=== PATIENT | female | born 1945 | race Caucasian/White ===

== ENCOUNTER 2018-05-27 12:00 | Emergency (ER) | payer MEDICARE, OTHER ==
[2018-05-27] MEDS ORDERED: Sodium Chloride 0.9% 10 ML Syringe FLUSH PRN ×2 (12:16→13:42)
[2018-05-27] MEDS ORDERED: Labetalol 100 MG/20 ML MDV IVPUSH ONE ×2 (12:17→14:47)
--- NOTE | 2018-05-27 13:16 | CR ---
Chest: Portable view of the chest was obtained. Comparison: Prior chest x-ray of 01/15/16. Heart size appears within normal limits. Tortuous thoracic aorta is seen. Lungs are clear without acute parenchymal change. Left shoulder prosthesis is noted. Previous cervical spine surgery is noted. Scoliosis and degenerative change is noted within the spine. Previous abdominal surgery is noted. Impression: 1. Incidental findings. Nothing acute is seen on portable chest x-ray. Diagnostic code #2
[2018-05-27] MEDS ORDERED: Iopamidol 755 Mg/ML 100 ML Bottle IVPUSH ONE (13:42)
[2018-05-27] MEDS ORDERED: Ondansetron 4 MG/2 ML SDV IVPUSH ONE (13:43)
[2018-05-27] MEDS ORDERED: Sodium Chloride 0.9% 100 ML IV SCH (13:45)
--- NOTE | 2018-05-27 14:45 | EDM.PDOC ---
ED HPI GENERAL MEDICAL PROBLEM - General Chief Complaint: Chest Pain Stated Complaint: WALK IN CHEST PAIN HIGH BP Time Seen by Provider: 05/27/18 12:07 Source of Information: Reports: Patient History Limitations: Reports: No Limitations - History of Present Illness INITIAL COMMENTS - FREE TEXT/NARRATIVE: The patient presents with upper abdominal pain, chest pain, right arm pain and right leg pain. This all started yesterday. She went to the clinic to get checked and her blood pressure was high over 200 systolic. They told her to come over here. She still has some pain in her chest but she said it is more epigastric pain. She has nausea but no vomiting. She has no fever, chills, cough, vomiting, dysuria or diarrhea. She has no history of heart problems. She does have HTN for which she is on metoprolol 50mg daily. There has been no adjustments to her meds lately. Onset: Gradual Duration: Day(s): (Yesterday) Location: Reports: Chest, Upper Extremity, Right (Shoulder), Lower Extremity, Right Quality: Reports: Sharp Severity: Mild Improves with: Reports: None Worsens with: Reports: Breathing Associated Symptoms: Reports: Chest Pain, Nausea/Vomiting. 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: Other (see below) Other Treatments COMMERCIAL CRABBER: takes baby aspirin daily and did have it Upper Abdomen Pain Score (Numeric/FACES): 5 - Related Data Allergies Allergy/AdvReac Type Severity Reaction Status Date / Time oxycodone Allergy Anxiety Verified 05/27/18 12:17 Home Meds: Home Meds Cholecalciferol (Vitamin D3) [Vitamin D3] 2,000 unit PO DAILY 06/18/15 [History] Furosemide [Lasix] 20 mg PO DAILY 06/18/15 [History] Multivitamin [Multi-Vitamin Daily] 1 tab PO DAILY 06/18/15 [History] Ubidecarenone [Coq10] 400 mg PO DAILY 06/21/15 [History] Zolpidem Tartrate 1 tab PO DAILY 04/06/16 [History] Cyclobenzaprine [Flexeril] 10 mg PO TID PRN #40 tablet 04/08/16 [Rx] Docusate Sodium [Colace] 100 mg PO BID PRN #0 cap 04/08/16 [Rx] Magnesium Hydroxide [Milk of Magnesia] 30 ml PO BID PRN #0 cup 04/08/16 [Rx] Aspirin [Ecotrin] 81 mg PO DAILY 05/27/18 [History] Cyanocobalamin (Vitamin B-12) [Vitamin B-12] 1,000 mcg PO DAILY 05/27/18 [ History] Eszopiclone 2 mg PO DAILY 05/27/18 [History] Metoprolol Succinate 50 mg PO DAILY 05/27/18 [History] Metoprolol Succinate 100 mg PO DAILY #30 tab.er.24h 05/27/18 [Rx] Progesterone,Micronized [Progesterone] 150 mg PO DAILY 05/27/18 [History] Rosuvastatin [Crestor] 20 mg PO DAILY 05/27/18 [History] Past Medical History Other HEENT History: wears eyeglasses Cardiovascular History: Reports: High Cholesterol, Hypertension Other Cardiovascular History: ascending aneurysm Respiratory History: Reports: Sleep Apnea Other Respiratory History: does not have cpap machine of own has one. Gastrointestinal History: Reports: Irritable Bowel Syndrome Other Gastrointestinal History: prolapsing bowels--surgery Genitourinary History: Reports: None Other Genitourinary History: CKD3 Musculoskeletal History: Reports: Fibromyalgia, Neck Pain, Chronic - Past Surgical History GI Surgical History: Reports: Other (See Below) Female Surgical History: Reports: Section, Hysterectomy Musculoskeletal Surgical History: Reports: Other (See Below) Social & Family History - Family History Family Medical History: Noncontributory Neurological: Reports: CVA - Tobacco Use Smoking Status *Q: Former Smoker Used Tobacco, but Quit: Yes Month/Year Tobacco Last Used: 15 yr - Caffeine Use Caffeine Use: Reports: Coffee - Recreational Drug Use Recreational Drug Use: No ED ROS GENERAL - Review of Systems Review Of Systems: See Below Constitutional: Reports: No Symptoms HEENT: Reports: No Symptoms Respiratory: Reports: No Symptoms Cardiovascular: Reports: Chest Pain Endocrine: Reports: No Symptoms GI/Abdominal: Reports: Abdominal Pain : Reports: No Symptoms Musculoskeletal: Reports: No Symptoms Skin: Reports: No Symptoms Neurological: Reports: No Symptoms ED EXAM, GENERAL - Physical Exam Exam: See Below Exam Limited By: No Limitations General Appearance: Alert, No Apparent Distress Ears: Normal External Exam Nose: Normal Inspection Head: Atraumatic, Normocephalic Neck: Normal Inspection Respiratory/Chest: No Respiratory Distress, Lungs Clear, Normal Breath Sounds Cardiovascular: Regular Rate, Rhythm, No Edema, No Murmur GI/Abdominal: Soft, No Organomegaly, No Mass, Tender (Mild tenderness to the epigastric region) Back Exam: Normal Inspection Extremities: Normal Inspection Neurological: Alert, Oriented, No Motor/Sensory Deficits EKG INTERPRETATION EKG Date: 05/27/18 Time: 12:03 Rhythm: NSR Rate (Beats/Min): 66 [place]: Normal P-Wave: Present QRS: Normal ST-T: Normal QT: Normal Course - Vital Signs Last Recorded V/S: Last Vital Signs Temp 98.3 F 05/27/18 12:08 Pulse 80 05/27/18 14:57 Resp 24 H 05/27/18 14:23 BP 201/102 H 05/27/18 14:57 Pulse Ox 96 05/27/18 14:23 - Orders/Labs/Meds Orders: Active Orders 24 hr Category Date Time Status Cardiac Monitoring [RC] . DIRECTED Care 05/27/18 12:16 Active EKG Documentation Completion [RC] STAT Care 05/27/18 12:16 Active Peripheral IV Care [RC] . DIRECTED Care 05/27/18 12:16 Active TROPONIN I [CHEM] Stat Lab 05/27/18 15:10 Received Sodium Chloride 0.9% [Normal Saline] 100 ml Med 05/27/18 13:45 Active IV ASDIRECTED Sodium Chloride 0.9% [Saline Flush] Med 05/27/18 12:16 Active 10 ml FLUSH ASDIRECTED PRN Sodium Chloride 0.9% [Saline Flush] Med 05/27/18 13:42 Active 10 ml FLUSH ONETIME PRN Peripheral IV Insertion Adult [OM.PC] Stat Oth 05/27/18 12:16 Ordered Medication Orders Sodium Chloride (Normal Saline) 100 mls @ 65 mls/hr IV ASDIRECTED MIKO Last Admin: 05/27/18 14:15 Dose: 65 mls/hr Sodium Chloride (Saline Flush) 10 ml FLUSH ASDIRECTED PRN PRN Reason: Keep Vein Open Last Admin: 05/27/18 13:05 Dose: 10 ml Sodium Chloride (Saline Flush) 10 ml FLUSH ONETIME PRN PRN Reason: IV FLUSH Last Admin: 05/27/18 14:15 Dose: 10 ml Labs: Laboratory Tests 0705/27/18 05/27/18 Range/Units 12:35 12:35 12:35 WBC 7.75 (3.98-10.04) K/mm3 RBC 4.41 (3.98-5.22) M/mm3 Hgb 14.1 (11.2-15.7) gm/L Hct 41.9 (34.1-44.9) % MCV 95.0 H (79.4-94.8) fl MCH 32.0 (25.6-32.2) pg MCHC 33.7 (32.2-35.5) g/dl RDW Std Deviation 44.1 (36.4-46.3) fL Plt Count 181 L (182-369) K/mm3 MPV 10.2 (9.4-12.3) fl Neut % (Auto) 67.6 (34.0-71.1) % Lymph % (Auto) 21.9 (19.3-51.7) % [place] % (Auto) 9.3 (4.7-12.5) % Eos % (Auto) 0.8 (0.7-5.8) Baso % (Auto) 0.3 (0.1-1.2) % Neut # (Auto) 5.24 (1.56-6.13) K/mm3 Lymph # (Auto) 1.70 (1.18-3.74) K/mm3 [place] # (Auto) 0.72 H (0.24-0.36) K/mm3 Eos # (Auto) 0.06 (0.04-0.36) K/mm3 Baso # (Auto) 0.02 (0.01-0.08) K/mm3 D-Dimer, Quantitative 0.65 H (0.19-0.50) mg/L Sodium 140 (136-145) mEq/L Potassium 3.7 (3.5-5.1) mEq/L Chloride 104 (98-107) mEq/L Carbon Dioxide 26 (21-32) mEq/L Anion Gap 13.7 (5-15) BUN 22 H (7-18) mg/dL Creatinine 1.1 H (0.55-1.02) mg/dL Est Cr Clr Drug Dosing 34.95 mL/min Estimated GFR (MDRD) 48 (>60) mL/min BUN/Creatinine Ratio 20.0 H (14-18) Glucose 126 H (83-115) mg/dL Calcium 9.9 (8.5-10.1) mg/dL Total Bilirubin 0.7 (0.2-1.0) mg/dL AST 34 (15-37) U/L ALT 39 (14-59) U/L Alkaline Phosphatase 103 (46-116) U/L Troponin I < 0.017 (0.00-0.056) ng/mL Total Protein 7.0 (6.4-8.2) g/dl Albumin 3.9 (3.4-5.0) g/dl Globulin 3.1 gm/dL Albumin/Globulin Ratio 1.3 (1-2) Meds: Medications Generic Name Dose Route Start Last Admin Trade Name Freq PRN Reason Stop Dose Admin Sodium Chloride 100 mls @ 65 mls/hr 05/27/18 13:45 05/27/18 14:15 Normal Saline IV 65 mls/hr ASDIRECTED MIKO Administration Sodium Chloride 10 ml 05/27/18 12:16 05/27/18 13:05 Saline Flush FLUSH 10 ml ASDIRECTED PRN Administration Keep Vein Open Sodium Chloride 10 ml 05/27/18 13:42 05/27/18 14:15 Saline Flush FLUSH 10 ml ONETIME PRN Administration IV FLUSH Discontinued Medications Generic Name Dose Route Start Last Admin Trade Name Bisi PRN Reason Stop Dose Admin Iopamidol 100 ml 05/27/18 13:42 05/27/18 14:15 Isovue-370 (76%) IVPUSH 05/27/18 13:43 100 ml ONETIME ONE Administration Labetalol HCl 20 mg 05/27/18 12:17 05/27/18 12:58 Normodyne IVPUSH 05/27/18 12:18 20 mg ONETIME ONE Administration Protocol Labetalol HCl 20 mg 05/27/18 14:47 05/27/18 14:57 Normodyne IVPUSH 05/27/18 14:48 20 mg ONETIME ONE Administration Protocol Ondansetron HCl 4 mg 05/27/18 13:43 05/27/18 14:18 Zofran IVPUSH 05/27/18 13:44 4 mg ONETIME ONE Administration - Re-Assessments/Exams Free Text/Narrative Re-Assessment/Exam: 05/27/18 14:48 I ordered an IV saline lock, EKG, CXR, labs, labetolol 20mg IV. 05/27/18 14:49 Her CXR and EKG look good. Her CBC looks good. Her creatinine was elevated at 1.1. 05/27/18 14:49 Her troponin was negative. Her D-dimer was slightly elevated at 0.65. I have ordered a CT angio of her chest. She is nauseated so I ordered zofran 4mg IV. Her blood pressure was down for awhile butnow she is 201 systolic. I will give her another dose of labetolol. 05/27/18 15:[address] angio shows ascending aorta is aneurysmal with AP dimension of 4.2cm which remains stable from prior chest CT. Air-filled cysts within both lower lungs which remain stable from previous exam. No findings of pulmonary embolism. Other incidental findings. She is feeling better. I do not think this is her heart. Her blood pressure is better. I will increase her metoprolol. I have ordered a repeat troponin. Departure - Departure Time of Disposition: 15:35 Disposition: Home, Self-Care 01 Condition: Good Clinical Impression: Nausea Chest pain Qualifiers: Chest pain type: unspecified Qualified Code(s): R07.9 - Chest pain, unspecified Thoracic aneurysm without mention of rupture Qualifiers: Presence of rupture: without rupture Qualified Code(s): I71.2 - Thoracic aortic aneurysm, without rupture Prescriptions: Metoprolol Succinate 100 mg PO DAILY #30 tab.er.24h Referrals: Lalita Garcia, KILN PULLER [Primary Care Provider] - 1 Week Forms: ED Department Discharge Additional Instructions: I will increase your metoprolol to 100mg daily. Take come pepcid daily for 5 days. Follow up with Lalita Garcia in 1 week. Please return if you are worse. - My Orders Last 24 Hours: My Active Orders 05/27/18 12:16 Cardiac Monitoring [RC] . DIRECTED EKG Documentation Completion [RC] STAT Peripheral IV Care [RC] . DIRECTED Sodium Chloride 0.9% [Saline Flush] 10 ml FLUSH ASDIRECTED PRN Peripheral IV Insertion Adult [OM.PC] Stat 05/27/18 13:42 Sodium Chloride 0.9% [Saline Flush] 10 ml FLUSH ONETIME PRN 05/27/18 13:45 Sodium Chloride 0.9% [Normal Saline] 100 ml IV ASDIRECTED 05/27/18 15:10 TROPONIN I [CHEM] Stat - Assessment/Plan Last 24 Hours: My Active Orders 05/27/18 12:16 Cardiac Monitoring [RC] . DIRECTED EKG Documentation Completion [RC] STAT Peripheral IV Care [RC] . DIRECTED Sodium Chloride 0.9% [Saline Flush] 10 ml FLUSH ASDIRECTED PRN Peripheral IV Insertion Adult [OM.PC] Stat 05/27/18 13:42 Sodium Chloride 0.9% [Saline Flush] 10 ml FLUSH ONETIME PRN 05/27/18 13:45 Sodium Chloride 0.9% [Normal Saline] 100 ml IV ASDIRECTED 05/27/18 15:10 TROPONIN I [CHEM] Stat
[2018-05-27 14:58] VITALS: BP 201/102
--- NOTE | 2018-05-27 14:58 | CT ---
CT chest Technique: Multiple axial sections through the chest were obtained. Intravenous contrast was utilized. Study performed as a pulmonary angiogram protocol. Comparison: Prior chest CT of 02/10/17 which is an outside study. Findings: Ascending aorta is aneurysmal at 4.2 cm in AP dimension. This measures about the same on previous exam. Descending aorta shows no aneurysm and measures 2.6 cm in AP dimension. Pulmonary arteries are well-opacified and show no filling defects to indicate pulmonary emboli. Coronary artery calcification is seen. No pericardial thickening is noted. Mediastinum and hilar regions show no adenopathy or mass. No axillary adenopathy is seen. Small portion of visualized upper abdominal structures appear within normal limits. Incidental note of previous cholecystectomy. Air-filled cysts are seen within both lung bases which appears stable from prior CT exam. No acute parenchymal change is seen within either lung. No pleural effusions are seen. Bone window settings shows scattered degenerative change throughout the spine. Impression: 1. Ascending aorta is aneurysmal with AP dimension of 4.2 cm which remains stable from prior chest CT. 2. Air-filled cysts within both lower lungs which remain stable from previous exam. 3. No findings of pulmonary embolism. Other incidental findings. Diagnostic code #3
== END 2018-05-27 16:03 | disposition home or self-care (01) ==
LOC: JD.ED 12:00 → SUPCPDRO 12:00 → JD.ED 16:03
DX: I71.2 Thoracic aortic aneurysm, without rupture (principal); E78.00 Pure hypercholesterolemia, unspecified; I12.9 Hypertensive chronic kidney disease with stage 1 through stage 4 chronic kidney disease, or unspecified chronic kidney disease; N18.3 Chronic kidney disease, stage 3 (moderate); Z88.5 Allergy status to narcotic agent; Z79.899 Other long term (current) drug therapy; Z79.82 Long term (current) use of aspirin; Z87.891 Personal history of nicotine dependence
CPT/HCPCS: 36415; 71045; 71275; 80053; 84484; 85025; 85379; 93005; 96374; 96375; 96376; 99285; J2405; J3490; J7030; J7050; Q9967; 93010; 99284-25

== ENCOUNTER 2019-08-07 08:51 | Inpatient (IN) | payer MEDICARE, OTHER ==
--- NOTE | 2019-08-04 13:17 | PCM.PREANE ---
Preanesthetic Assessment - Anesthesia/Transfusion/Family Hx Anesthesia History: Prior Anesthesia Without Reaction Family History of Anesthesia Reaction: No Transfusion History: No Prior Transfusion(s) Intubation History: Unknown - Review of Systems General: No Symptoms (History of fibromyalgia) Pulmonary: No Symptoms (COPD/[place]), Cough Cardiovascular: No Symptoms (History of HTN, elevated cholesterol, History of stable AAA 4.1cm., history of paraxysmal SVT, and Diastolic CHF), Palpitations, Dyspnea on Exertion, Edema Other: Reports: None (CKD III), Neck Pain (History of neck fusion), Depression - Physical Assessment NPO Status Date: 08/06/19 Height: 1.6 m ASA Class: 3 Mental Status: Alert & Oriented x3 Airway Class: Mallampati = 1 Dentition: Reports: Normal Dentition, Caries Thyro-Mental Finger Breadths: 3 Mouth Opening Finger Breadths: 3 ROM/Head Extension: Full - Lab Values: Laboratory Last Values MRSA (PCR) Negative 07/26/19 13:52 Labs reviewed and noted and within acceptable ranges to proceed with scheduled procedure. - Imaging/EKG Impressions: EKG: NSR rate= 73 Echocardiogram: EF=64% CXR: flattened diaphragm potentially emphysema - Allergies Allergies/Adverse Reactions: Allergies Allergy/AdvReac Type Severity Reaction Status Date / Time oxycodone Allergy Anxiety Verified 05/27/18 12:17 - Anesthesia Plan Pre-Op Medication Ordered: Beta Diego Beta Diego: Metoprolol Med Last Dose Date: 08/07/19 - Acknowledgements Anesthesia Type Planned: General Anesthesia (Right ISB under US guidance for post operative pain control requested by Dr. Leblanc.) Pt an Appropriate Candidate for the Planned Anesthesia: Yes Alternatives and Risks of Anesthesia Discussed w Pt/Guardian: Yes Pt/Guardian Understands and Agrees with Anesthesia Plan: Yes PreAnesthesia Questionnaire Other HEENT History: wears eyeglasses Cardiovascular History: Reports: None (History of paroxysmal SVT), High Cholesterol, Hypertension Other Cardiovascular History: ascending aortic aneurysm stable measured at 4.1cm. Respiratory History: Reports: COPD, Sleep Apnea, SOB Other Respiratory History: does not have cpap machine of own has one. Gastrointestinal History: Reports: Irritable Bowel Syndrome Other Gastrointestinal History: prolapsing bowels--surgery Genitourinary History: Reports: None Other Genitourinary History: CKD3 Musculoskeletal History: Reports: Fibromyalgia, Neck Pain, Chronic - Past Surgical History GI Surgical History: Reports: Appendectomy, Cholecystectomy, Colonoscopy, Other (See Below) Female Surgical History: Reports: Section, Hysterectomy Neurological Surgical History: Reports: C-Spine Musculoskeletal Surgical History: Reports: Ganglion Cyst, Shoulder Replacement ( left), Other (See Below) (neck surgery) - Past Imaging History Past Imaging History: Reports: Cardiac Echo, PFT - SUBSTANCE USE Smoking Status *Q: Former Smoker - HOME MEDS Home Medications: Home Meds Cholecalciferol (Vitamin D3) [Vitamin D3] 2,000 unit PO DAILY 06/18/15 [History] Furosemide [Lasix] 20 mg PO DAILY 06/18/15 [History] Multivitamin [Multi-Vitamin Daily] 1 tab PO DAILY 06/18/15 [History] Ubidecarenone [Coq10] 400 mg PO DAILY 06/21/15 [History] Zolpidem Tartrate 1 tab PO DAILY 04/06/16 [History] Cyclobenzaprine [Flexeril] 10 mg PO TID PRN #40 tablet 04/08/16 [Rx] Docusate Sodium [Colace] 100 mg PO BID PRN #0 cap 04/08/16 [Rx] Magnesium Hydroxide [Milk of Magnesia] 30 ml PO BID PRN #0 cup 04/08/16 [Rx] Aspirin [Ecotrin] 81 mg PO DAILY 05/27/18 [History] Cyanocobalamin (Vitamin B-12) [Vitamin B-12] 1,000 mcg PO DAILY 05/27/18 [ History] Eszopiclone 2 mg PO DAILY 05/27/18 [History] Metoprolol Succinate 50 mg PO DAILY 05/27/18 [History] Metoprolol Succinate 100 mg PO DAILY #30 tab.er.24h 05/27/18 [Rx] Progesterone, Micronized [Progesterone] 150 mg PO DAILY 05/27/18 [History] Rosuvastatin [Crestor] 20 mg PO DAILY 05/27/18 [History] - CURRENT (IN HOUSE) MEDS Current Meds: Current Medications Lactated Ringer's (Ringers, Lactated) 1,000 mls @ 125 mls/hr IV ASDIRECTED MIKO Stop: 08/07/19 23:00 Lidocaine/Sodium Bicarbonate (Buffered Lidocaine 1% In Ns 8.4%) 0.25 ml IDERM ONETIME PRN PRN Reason: Prior to IV Start Stop: 08/07/19 18:00 Sodium Chloride (Saline Flush) 10 ml FLUSH ASDIRECTED PRN PRN Reason: Keep Vein Open Stop: 08/07/19 18:00
[~2019-08-07 08:51] MED LIST: Cyclobenzaprine 10 MG Tab PO PRN; EPINEPHrine 1 MG/1 ML Amp ONE; Lactated Ringers 1,000 ML IV SCH; Lidocaine 1%/Sod Bicarbonate in NS 8.4% 1 ML Syringe IDERM PRN; Magnesium Hydroxide 400 MG/5 ML Susp 30 ML Cup PO PRN; Morphine 2 MG/ML Syringe IVPUSH PRN; Naloxone 0.4 MG/ML SDV IVPUSH PRN; Ondansetron 4 MG/2 ML SDV IVPUSH PRN; Ropivacaine 0.5% 5 MG/ML 30 ML SDV ONE; Sodium Chloride 0.9% 10 ML Syringe FLUSH PRN
[2019-08-07] MEDS ORDERED: Rocuronium 50 MG/5 ML Vial ONE (09:24)
[2019-08-07] MEDS ORDERED: Dexamethasone 4 MG/ML 5 ML MDV ONE (09:24)
[2019-08-07] MEDS ORDERED: Ondansetron 4 MG/2 ML SDV ONE (09:24)
[2019-08-07] MEDS ORDERED: Lactated Ringers 1,000 ML ONE (09:24)
[2019-08-07] MEDS ORDERED: Lidocaine 1% 8 ML ONE (09:24)
[2019-08-07] MEDS ORDERED: Propofol 200 MG/20 ML SDV ONE (09:25)
[2019-08-07] MEDS ORDERED: Midazolam 1 MG/ML 2 ML SDV ONE (09:25)
[2019-08-07] MEDS ORDERED: fentaNYL 250 MCG/5 ML SDV ONE (09:25)
[2019-08-07] MEDS ORDERED: Albuterol 0.083% 2.5 MG/3 ML Neb Soln NEB PRN ×2 (09:40→12:27)
--- NOTE | 2019-08-07 10:06 | PCM.PREANE ---
Preanesthetic Assessment - Procedure Proposed Procedure: right reverse total shoulder - Anesthesia/Transfusion/Family Hx Anesthesia History: Prior Anesthesia Without Reaction Family History of Anesthesia Reaction: No Transfusion History: No Prior Transfusion(s) Intubation History: Unknown - Review of Systems General: No Symptoms Pulmonary: Other (copd) Cardiovascular: No Symptoms Gastrointestinal: Diarrhea (frequently) Neurological: No Symptoms Other: Reports: Neck Pain (History of neck fusion), Depression - Physical Assessment NPO Status Date: 08/06/19 NPO Status Time: 21:00 Vital Signs: Last Vital Signs Temp 97.7 F 08/07/19 09:00 Pulse 69 08/07/19 09:00 Resp 17 08/07/19 09:00 BP 148/80 H 08/07/19 09:00 Pulse Ox 97 08/07/19 09:00 Height: 5 ft 2 in Weight: 54.9 kg ASA Class: 3 Mental Status: Alert & Oriented x3 Airway Class: Mallampati = 1 Dentition: Reports: Normal Dentition Thyro-Mental Finger Breadths: 3 Mouth Opening Finger Breadths: 3 ROM/Head Extension: Full (denies limited movement) Lungs: Clear to Auscultation, Normal Respiratory Effort Cardiovascular: Regular Rate, Regular Rhythm - Lab Values: Laboratory Last Values MRSA (PCR) Negative 07/26/19 13:52 - Allergies Allergies/Adverse Reactions: Allergies Allergy/AdvReac Type Severity Reaction Status Date / Time oxycodone Allergy Hallucinati Verified 08/07/19 09:41 ons - Blood Blood Available: No - Anesthesia Plan Beta Diego: Metoprolol Med Last Dose Date: 08/07/19 Med Last Dose Time: 07:00 - Acknowledgements Anesthesia Type Planned: General Anesthesia Pt an Appropriate Candidate for the Planned Anesthesia: Yes Alternatives and Risks of Anesthesia Discussed w Pt/Guardian: Yes Pt/Guardian Understands and Agrees with Anesthesia Plan: Yes PreAnesthesia Questionnaire HEENT History: Reports: Allergic Rhinitis, Otitis Media, Sinusitis, Other (See Below) Other HEENT History: Impacted cerumen right ear Cardiovascular History: Reports: Heart Failure, High Cholesterol, Hypertension, Other (See Below) Other Cardiovascular History: Ascending aortic aneurysm, paroxysmal SVT, peripheral edema, rapid palpitations Respiratory History: Reports: Asthma, COPD, Sleep Apnea Other Respiratory History: does not have cpap machine of own has one. 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: Other OB/BYN History: Hot flashes, vaginal prolaps Musculoskeletal History: Reports: Fibromyalgia Neurological History: Reports: None Psychiatric History: Reports: Other (See Below) Other Psychiatric History: Insomnia Endocrine/Metabolic History: Reports: Vitamin D Deficiency Hematologic History: Reports: None Immunologic History: Reports: None Oncologic (Cancer) History: Reports: None Dermatologic History: Reports: None, Other (See Below) Other Dermatologic History: Lipoma - Past Surgical History Head Surgeries/Procedures: Reports: None HEENT Surgical History: Reports: Naso-Sinus Surgery, Tonsillectomy Cardiovascular Surgical History: Reports: None Respiratory Surgical History: Reports: None GI Surgical History: Reports: Appendectomy, Cholecystectomy, Hernia Repair/Other , Other (See Below) Other GI Surgeries/Procedures: Rectocele repair Female Surgical History: Reports: Section, Hysterectomy Endocrine Surgical History: Reports: None Neurological Surgical History: Reports: None, C-Spine Musculoskeletal Surgical History: Reports: Shoulder Replacement, Other (See Below) (hip surgery-took off growth) Oncologic Surgical History: Reports: None Dermatological Surgical History: Reports: None - Past Imaging History Past Imaging History: Reports: Cardiac Echo, PFT - SUBSTANCE USE Smoking Status *Q: Former Smoker Tobacco Use Within Last Twelve Months: No Second Hand Smoke Exposure: No Days Per Week of Alcohol Use: 7 Number of Drinks Per Day: 2 Total Drinks Per Week: 14 Recreational Drug Use History: No - HOME MEDS Home Medications: Home Meds Aspirin [Halfprin] 81 mg PO DAILY 08/04/19 [History] Cholecalciferol (Vitamin D3) [Vitamin D3] 4,000 unit PO DAILY 08/04/19 [History] Cyanocobalamin (Vitamin B12) [Vitamin B12] 1,000 mcg PO DAILY 08/04/19 [History] Estradiol [Estrogel] 1 applic TOP DAILY 08/04/19 [History] Fluticasone/Vilanterol [Breo Ellipta 100-25 MCG Inhalation Kit] 1 puff IH DAILY 08/04/19 [History] Losartan [Cozaar] 50 mg PO DAILY 08/04/19 [History] Metoprolol Succinate 200 mg PO DAILY 08/04/19 [History] Multivitamin [Daily Multiple Vitamin] 1 tab PO DAILY 08/04/19 [History] Progesterone, Micronized [Progesterone] 200 mg PO DAILY 08/04/19 [History] Ubidecarenone [Co Q-10] 800 mg PO DAILY 08/04/19 [History] Zolpidem Tartrate [Zolpidem Tartrate ER] 12.5 mg PO BEDTIME PRN 08/04/19 [ History] amLODIPine [Norvasc] 2.5 mg PO DAILY 08/04/19 [History] atorvaSTATin [Lipitor] 20 mg PO BEDTIME 08/04/19 [History] - CURRENT (IN HOUSE) MEDS Current Meds: Current Medications Hydrocodone Bitart/Acetaminophen ([place] 325-5 Mg) 1 - 2 tab PO Q4H PRN PRN Reason: Pain Albuterol (Proventil Neb Soln) 2.5 mg NEB ONETIME PRN PRN Reason: bronchodilation Stop: 08/07/19 14:00 Aspirin (Ecotrin) 325 mg PO DAILY MIKO Bisacodyl (Dulcolax) 5 mg PO DAILY PRN PRN Reason: Constipation Cyclobenzaprine HCl (Flexeril) 5 mg PO BID PRN PRN Reason: Spasms Docusate Sodium (Colace) 100 mg PO BID MIKO Famotidine (Pepcid) 20 mg PO Q12H [facility] Lactated Ringer's (Ringers, Lactated) 1,000 mls @ 125 mls/hr IV ASDIRECTED [facility] Stop: 08/07/19 23:00 Cefazolin Sodium/Dextrose 2 gm (/ Premix) 50 mls @ 100 mls/hr IV Q8H [facility] Stop: 08/07/19 23:29 Ketorolac Tromethamine (Toradol) 15 mg IVPUSH Q6H PRN PRN Reason: Pain Lidocaine/Sodium Bicarbonate (Buffered Lidocaine 1% In Ns 8.4%) 0.25 ml IDERM ONETIME PRN PRN Reason: Prior to IV Start Stop: 08/07/19 18:00 Magnesium Hydroxide (Milk Of Magnesia) 30 ml PO BID PRN PRN Reason: Constipation Morphine Sulfate (Morphine) 2 mg IVPUSH Q2H PRN PRN Reason: Breakthrough Pain Naloxone HCl (Narcan) 0.1 mg IVPUSH Q5M PRN PRN Reason: Oversedation Ondansetron HCl (Zofran) 4 mg IVPUSH Q6H PRN PRN Reason: Nausea/Vomiting Senna (Senna) 8.6 mg PO BID PRN PRN Reason: Constipation Sodium Chloride (Saline Flush) 10 ml FLUSH ASDIRECTED PRN PRN Reason: Keep Vein Open Stop: 08/07/19 18:00 Discontinued Medications Cefazolin Sodium (Ancef) Confirm Administered Dose 2 gm .ROUTE .STK-MED ONE Stop: 08/07/19 09:25 Dexamethasone (Dexamethasone) Confirm Administered Dose 20 mg .ROUTE .STK-MED ONE Stop: 08/07/19 09:25 Epinephrine HCl (Adrenalin) Confirm Administered Dose 1 mg .ROUTE .STK-MED ONE Stop: 08/07/19 06:48 Fentanyl (Sublimaze) Confirm Administered Dose 250 mcg .ROUTE .STK-MED ONE Stop: 08/07/19 09:26 Lidocaine HCl (Xylocaine-Mpf 1%) Confirm Administered Dose 8 mls @ as directed .ROUTE .STK-MED ONE Stop: 08/07/19 09:25 Lactated Ringer's (Ringers, Lactated) Confirm Administered Dose 1,000 mls @ as directed .ROUTE .STK-MED ONE Stop: 08/07/19 09:25 Midazolam HCl (Versed 1 Mg/Ml) Confirm Administered Dose 2 mg .ROUTE .STK-MED ONE Stop: 08/07/19 09:26 Ondansetron HCl (Zofran) Confirm Administered Dose 4 mg .ROUTE .STK-MED ONE Stop: 08/07/19 09:25 Propofol (Diprivan 20 Ml) Confirm Administered Dose 200 mg .ROUTE .STK-MED ONE Stop: 08/07/19 09:26 Rocuronium Wideman (Zemuron) Confirm Administered Dose 50 mg .ROUTE .STK-MED ONE Stop: 08/07/19 09:25 Ropivacaine (Naropin 0.5%) Confirm Administered Dose 30 ml .ROUTE .STK-MED ONE Stop: 08/07/19 06:48
[2019-08-07] MEDS ORDERED: ceFAZolin 1 GM Vial ONE (11:02)
--- NOTE | 2019-08-07 11:33 | PCM.SN ---
- Free Text/Narrative Note: Anesthesia Note: (Right Interscalene Block Note) Date: 08/07/2019 Time Out: 1102 Start: 1102 Stop: 1116 Surgical Procedure: Right Reverse Total Shoulder Arthroplasty Diagnosis Right shoulder OA Current Procedure: Right interscalene block under US guidance for postoperative pain control requested by Dr. Leblanc. Patient chart reviewed, risk/benefits discussed with patient, consent obtained. Patient positioned supine, monitors/alarms on, oxygen placed via nasal cannula at 2 LPM. IV sedation administered: Versed 2mg IV, Fentanyl 50mcg IV given in prior to block placement. Right shoulder prepped with two chloropreps. Sterile drapes placed with aseptic technique noted. Under US guidance, right subclavian artery visualized along with the right brachial plexus. Plexus followed up to C6 cricoid level, and area localized with 2mls of 1% lidocaine. 22gauge 2 inch stimiplex needle advanced under US with 0.6mV with stimulation of biceps noted. Good stimulation noted with decreased voltage and absent at 0.2mVs. 1ml of Normal Saline injected with loss of stimulation noted to confirm needle not placed intraneurally. Incremental dosing of 5mls with negative aspiration noted prior to each injection of 0.5% ropivacaine with 1:200,000 epinephrine. Total volume=30mls. Please refer to nurses noted for vital signs. Love Pires CRNA
[2019-08-07] MEDS ORDERED: Phenylephrine/Normal Saline 100 MCG/ML 10 ML Syringe ONE (12:15)
[2019-08-07] MEDS ORDERED: ePHEDrine/Normal Saline 25 MG/5 ML Syringe ONE ×2 (12:26→13:06)
[2019-08-07] MEDS ORDERED: Ondansetron 4 MG/2 ML SDV IVPUSH PRN (12:27)
[2019-08-07] MEDS ORDERED: HYDROmorphone 0.5 MG/0.5 ML Syringe IVPUSH PRN (12:27)
[2019-08-07] MEDS ORDERED: ePHEDrine 50 MG/ML SDV IVPUSH PRN (12:27)
[2019-08-07] MEDS ORDERED: Midazolam 1 MG/ML 2 ML SDV IVPUSH PRN (12:27)
[2019-08-07] MEDS ORDERED: fentaNYL 100 MCG/2 ML SDV IVPUSH PRN ×2 (12:27→13:52)
[2019-08-07] MEDS ORDERED: diphenhydrAMINE 50 MG/ML SDV IVPUSH PRN (12:27)
[2019-08-07] MEDS ORDERED: Phenylephrine 1 MG in Sodium Chloride 0.9% 10 ML IV SCH (12:30)
[2019-08-07] MEDS ORDERED: Neostigmine Methylsulfate 1 MG/ML 5 ML Syringe ONE (12:54)
[2019-08-07] MEDS: Iodine/Sodium Iodide 2% Tincture 30 ML Bottle ONE ×2 (12:59→13:10)
[2019-08-07] MEDS: ceFAZolin 1 GM Vial ONE ×2 (12:59→13:12)
[2019-08-07] MEDS: Vancomycin 1 GM SDV ONE ×2 (13:00→13:15)
[2019-08-07] MEDS ORDERED: Albuterol 0.083% 2.5 MG/3 ML Neb Soln NEB ONE (13:52)
--- NOTE | 2019-08-07 13:52 | PCM.POSTAN ---
POST ANESTHESIA ASSESSMENT - MENTAL STATUS Mental Status: Alert, Oriented - VITAL SIGNS Vital Signs: Last Vital Signs Temp 36.5 C 08/07/19 09:00 Pulse 74 08/07/19 11:15 Resp 16 08/07/19 11:15 BP 124/83 08/07/19 11:15 Pulse Ox 99 08/07/19 11:15 - RESPIRATORY Respiratory Status: Respiratory Rate WNL, Airway Patent, O2 Saturation Stable, Supplemental Oxygen - CARDIOVASCULAR CV Status: Pulse Rate WNL, Blood Pressure Stable - GASTROINTESTINAL GI Status: No Symptoms - PAIN Pain Score: 0 - POST OP HYDRATION Hydration Status: Adequate & Stable
--- NOTE | 2019-08-07 14:06 | CR ---
Right shoulder: Two views of the right shoulder were obtained utilizing C-arm device. Study shows right shoulder prosthesis. Underlying bony structures are intact. Fluoroscopy time is given as 3.4 seconds. Impression: 1. Procedural study as noted above. Diagnostic code #2
--- NOTE | 2019-08-07 14:25 | CR ---
Right shoulder: Single AP view of the right shoulder was obtained. Comparison: Previous operative study performed earlier on the same day (1:08 PM). Right shoulder prosthesis is noted. Components are aligned. Soft tissue air is noted from the surgical procedure. Previous cervical spine surgery is noted. Scattered disc space narrowing and endplate osteophytes are seen within the spine. Impression: 1. Recently placed right shoulder prosthesis. Other findings as noted above which are felt to be incidental. Diagnostic code #2
[2019-08-07] MEDS ORDERED: Zolpidem 10 MG Tab PO PRN (15:36)
[2019-08-07] MEDS: Ketorolac 15 MG/ML SDV IVPUSH PRN (17:16)
[2019-08-07] MEDS: ceFAZolin 2 GM in Premix Bag 1 BAG IV SCH (18:29)
[2019-08-07] MEDS: Acetaminophen/HYDROcodone 325-5 MG Tab PO PRN (18:29)
[2019-08-07] MEDS: Famotidine 20 MG Tab PO SCH (20:22)
[2019-08-07] MEDS: Docusate Sodium 100 MG Cap PO SCH (20:23)
[2019-08-07] MEDS: Formoterol/Mometasone 100-5 MCG 8.8 GM Inhaler IH SCH (20:54)
[2019-08-07] MEDS ORDERED: Sennosides 8.6 MG Tab PO PRN (21:00)
[2019-08-07] MEDS ORDERED: Simvastatin 20 MG Tab PO SCH (21:00)
[2019-08-07] MEDS ORDERED: Bisacodyl 5 MG Tab PO PRN (21:00)
[2019-08-08] MEDS: Acetaminophen/HYDROcodone 325-5 MG Tab PO PRN ×3 (00:09→13:11)
[2019-08-08] MEDS: ceFAZolin 2 GM in Premix Bag 1 BAG IV SCH ×2 (03:22→11:06)
[2019-08-08] MEDS: Formoterol/Mometasone 100-5 MCG 8.8 GM Inhaler IH SCH (06:14)
--- NOTE | 2019-08-08 06:59 | PCM.CONS ---
H&P History of Present Illness - General Date of Service: 08/08/19 Admit Problem/Dx: Admission Diagnosis/Problem Admission Diagnosis/Problem Osteoarthritis of shoulder Source of Information: Patient, Old Records, Provider, RN Notes Reviewed History Limitations: Reports: Physical Impairment - History of Present Illness Initial Comments - Free Text/Narative: This is a 74 yo elderly white female with past medical hx/o AR, HTN, HLD, AAA, Asthma, CKD Stage 3, KELTON, Depression, Fibromyalgia, Post Menopausal, Hot Flashes , Vaginal Prolapse, Insomnia, and IBS who underwent Right Reverse Total Shoulder Arthroplasty operative day #1. She is doing relatively well and her pain is well controlled. She has no complaints or acute issues. We were consulted for post-operative care. Right Shoulder Pain Score (Numeric/FACES): 0 Tailbone Pain Score (Numeric/FACES): 2 - Related Data Allergies/Adverse Reactions: Allergies Allergy/AdvReac Type Severity Reaction Status Date / Time oxycodone AdvReac Hallucinati Verified 08/07/19 10:06 ons Home Medications: Home Meds Cholecalciferol (Vitamin D3) [Vitamin D3] 4,000 unit PO DAILY 08/04/19 [History] Cyanocobalamin (Vitamin B12) [Vitamin B12] 1,000 mcg PO DAILY 08/04/19 [History] Estradiol [Estrogel] 1 applic TOP DAILY 08/04/19 [History] Fluticasone/Vilanterol [Breo Ellipta 100-25 MCG Inhalation Kit] 1 puff IH DAILY 08/04/19 [History] Losartan [Cozaar] 50 mg PO DAILY 08/04/19 [History] Metoprolol Succinate 200 mg PO DAILY 08/04/19 [History] Multivitamin [Daily Multiple Vitamin] 1 tab PO DAILY 08/04/19 [History] Progesterone, Micronized [Progesterone] 200 mg PO DAILY 08/04/19 [History] Ubidecarenone [Co Q-10] 800 mg PO DAILY 08/04/19 [History] Zolpidem Tartrate [Zolpidem Tartrate ER] 12.5 mg PO BEDTIME PRN 08/04/19 [ History] amLODIPine [Norvasc] 2.5 mg PO DAILY 08/04/19 [History] atorvaSTATin [Lipitor] 20 mg PO BEDTIME 08/04/19 [History] Acetaminophen/HYDROcodone [[place] 325-5 MG] 1 - 2 tab PO Q4H PRN #60 tablet 08/08 [Rx] Aspirin [Ecotrin EC] 325 mg PO DAILY #40 tab.ec 08/08/19 [Rx] Bisacodyl [Dulcolax] 5 mg PO DAILY PRN tablet 08/08/19 [Rx] Cyclobenzaprine [Flexeril] 5 mg PO BID PRN #20 tablet 08/08/19 [Rx] Docusate Sodium [Colace] 100 mg PO BID cap 08/08/19 [Rx] Famotidine [Pepcid] 20 mg PO Q12H tablet 08/08/19 [Rx] Magnesium Hydroxide [Milk of Magnesia] 30 ml PO BID PRN cup 08/08/19 [Rx] Sennosides [Senna] 8.6 mg PO BID PRN tablet 08/08/19 [Rx] Past Medical History HEENT History: Reports: Allergic Rhinitis, Otitis Media, Sinusitis, Other (See Below) Other HEENT History: wears eyeglasses Cardiovascular History: Reports: None, High Cholesterol, Hypertension Other Cardiovascular History: ascending aortic aneurysm stable measured at 4.1cm. Respiratory History: Reports: COPD, Sleep Apnea, SOB Other Respiratory History: does not have cpap machine of own has one. 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: Other OB/BYN History: Hot flashes, vaginal prolaps Musculoskeletal History: Reports: Fibromyalgia, Neck Pain, Chronic Neurological History: Reports: None Psychiatric History: Reports: Other (See Below) Other Psychiatric History: Insomnia Endocrine/Metabolic History: Reports: Vitamin D Deficiency Hematologic History: Reports: None Immunologic History: Reports: None Oncologic (Cancer) History: Reports: Other (See Below) Other Oncologic History: cancer removed via hysterectomy Dermatologic History: Reports: None, Other (See Below) Other Dermatologic History: Lipoma - Infectious Disease History Infectious Disease History: Reports: Chicken Pox, Measles - Past Surgical History Head Surgeries/Procedures: Reports: None HEENT Surgical History: Reports: Tonsillectomy GI Surgical History: Reports: Appendectomy, Cholecystectomy, Colonoscopy, Other (See Below) Female Surgical History: Reports: Section, Hysterectomy Endocrine Surgical History: Reports: None Neurological Surgical History: Reports: C-Spine Musculoskeletal Surgical History: Reports: Ganglion Cyst, Shoulder Replacement, Other (See Below) Other Musculoskeletal Surgeries/Procedures:: Hip surgery - took lump of right side many years ago. Left shoulder replacement 3 yrs ago. Right shoulder replacement - 08/07/19 Oncologic Surgical History: Reports: None Dermatological Surgical History: Reports: None - Past Imaging History Past Imaging History: Reports: Cardiac Echo, PFT Social & Family History - Family History Family Medical History: Noncontributory Neurological: Reports: CVA - Tobacco Use Smoking Status *Q: Former Smoker Years of Tobacco use: 40 Packs/Tins Daily: 1 Used Tobacco, but Quit: Yes Month/Year Tobacco Last Used: 15 years ago Second Hand Smoke Exposure: No - Caffeine Use Caffeine Use: Reports: Coffee - Alcohol Use Days Per Week of Alcohol Use: 7 Number of Drinks Per Day: 1 Total Drinks Per Week: 7 Date of Last Drink: 08/06/19 Time of Last Drink: 18:00 - Recreational Drug Use Recreational Drug Use: No Drug Use in Last 12 Months: No H&P Review of Systems - Review of Systems: Review Of Systems: See Below General: Denies: Fever, Chills, Malaise, Weakness, Fatigue HEENT: Reports: No Symptoms Pulmonary: Denies: Shortness of Breath Cardiovascular: Denies: Chest Pain, Dyspnea on Exertion, Lightheadedness Gastrointestinal: Denies: Abdominal Pain, Nausea, Vomiting Genitourinary: Reports: No Symptoms Musculoskeletal: Reports: No Symptoms Skin: Denies: Cyanosis, Bruising, Rash, Erythema, Wound Psychiatric: Denies: Confusion, Depression, Mood Lability, Anxiety, Agitation, Hallucinations, Suicidal Ideation, Homicidal Ideation Neurological: Denies: Confusion, Difficulty Walking, Weakness, Gait Disturbance Hematologic/Lymphatic: Reports: No Symptoms Immunologic: Reports: No Symptoms Exam - Exam Exam: See Below - Vital Signs Vital Signs: Last Vital Signs Temp 36.0 C 08/08/19 04:12 Pulse 74 08/08/19 04:12 Resp 20 08/08/19 04:12 BP 122/81 08/08/19 04:12 Pulse Ox 94 L 08/08/19 06:14 Weight: 58.423 kg - Exam General: Alert, Oriented, Cooperative HEENT: Conjunctiva Clear, EACs Clear, EOMI, Mucosa Moist & Thoreau, Nares Patent, Posterior Pharynx Clear, Pupils Equal Neck: Supple, Trachea Midline Lungs: Clear to Auscultation, Normal Respiratory Effort Cardiovascular: Regular Rate, Regular Rhythm GI/Abdominal Exam: Normal Bowel Sounds, Soft, Non-Tender, No Organomegaly, No Distention, No Abnormal Bruit (Female) Exam: Deferred Rectal (Female) Exam: Deferred Back Exam: Normal Inspection, Decreased Range of Motion Extremities: Normal Inspection, Normal Range of Motion, Non-Tender, No Pedal Edema, Normal Capillary Refill, Limited Range of Motion (right upper extremity) Peripheral Pulses: 2+: Posterior Tibial (L), Posterior Tibial (R), Dorsalis Pedis (L), Dorsalis Pedis (R) Skin: Warm, Dry, Intact Skin Alteration Location (Drawings Not To Scale): 1 - wrapped with arm sling Neuro Extensive - Mental Status: Oriented x3, Normal Cognition, Memory Intact Neuro Extensive - Motor, Sensory, Reflexes: CN II-XII Intact, Normal Gait Psychiatric: Alert, Normal Affect, Normal Mood - Patient Data Lab Results Last 24 hrs: Laboratory Results - last 24 hr 08/08/19 08/08/19 Range/Units 05:55 05:55 WBC 9.48 (3.98-10.04) K/mm3 RBC 3.40 L (3.98-5.22) M/mm3 Hgb 10.8 L D (11.2-15.7) gm/dl Hct 33.1 L (34.1-44.9) % MCV 97.4 H (79.4-94.8) fl MCH 31.8 (25.6-32.2) pg MCHC 32.6 (32.2-35.5) g/dl RDW Std Deviation 44.8 (36.4-46.3) fL Plt Count 161 L (182-369) K/mm3 MPV 10.5 (9.4-12.3) fl Sodium 135 L (136-145) mEq/L Potassium 4.6 (3.5-5.1) mEq/L Chloride 102 (98-107) mEq/L Carbon Dioxide 23 (21-32) mEq/L Anion Gap 14.6 (5-15) BUN 26 H (7-18) mg/dL Creatinine 1.1 H (0.55-1.02) mg/dL Est Cr Clr Drug Dosing 35.99 mL/min Estimated GFR (MDRD) 48 (>60) mL/min BUN/Creatinine Ratio 23.6 H (14-18) Glucose 160 H (83-115) mg/dL Calcium 8.7 (8.5-10.1) mg/dL Total Bilirubin 0.4 (0.2-1.0) mg/dL AST 19 (15-37) U/L ALT 18 (14-59) U/L Alkaline Phosphatase 54 (46-116) U/L Total Protein 5.5 L (6.4-8.2) g/dl Albumin 2.8 L (3.4-5.0) g/dl Globulin 2.7 gm/dL Albumin/Globulin Ratio 1.0 (1-2) Result Diagrams: 08/08/19 05:55 08/08/19 05:55 Consult PN Assessment/Plan POD#: 1 Procedures: Procedures AIRWAY INHALATION TREATMENT (07/26/18) ASSAY OF ALDOLASE (01/14/16) ASSAY OF CK (CPK) (03/27/16) ASSAY OF MAGNESIUM (01/14/16) ASSAY OF NATRIURETIC PEPTIDE (06/17/15) ASSAY OF PREALBUMIN (07/12/19) ASSAY OF TROPONIN QUANT (05/27/18) ASSAY THYROID STIM HORMONE (03/06/19) BORDETELLA ANTIBODY (08/03/18) CHEST X-RAY 1 VIEW FRONTAL (06/18/15) CHEST X-RAY 2VW FRONTAL&LATL (01/15/16) CO/[place]ANE DIFFUSE CAPACITY (07/25/18) COMP SCREEN MAMMOGRAM ADD-ON (02/04/16) COMPLETE CBC AUTOMATED (03/06/19) COMPLETE CBC W/AUTO DIFF WBC (07/12/19) COMPREHEN METABOLIC PANEL (07/12/19) CREATINE MB FRACTION (01/14/16) CT ANGIOGRAPHY CHEST (05/27/18) DX MAMMO INCL CAD UNI (09/06/18) DXA BONE DENSITY AXIAL (02/05/17) ECG MONIT/REPRT UP TO 48 HRS (01/14/16) ECG MONIT/REPRT UP TO 48 HRS (01/14/16) ELECTROCARDIOGRAM TRACING (07/12/19) EMERGENCY DEPT VISIT (05/27/18) EMERGENCY DEPT VISIT (06/18/15) EVALUATE PT USE OF INHALER (06/18/15) EVALUATION OF WHEEZING (07/25/18) EXTREMITY STUDY (12/23/16) EXTREMITY STUDY (01/14/16) FIBRIN DEGRADATION QUANT (05/27/18) FLUOROSCOPY <1 HR PHYS/QHP (04/06/16) GAIT TRAINING THERAPY (04/06/16) HYDRATE IV INFUSION ADD-ON (01/28/16) HYDRATION IV INFUSION INIT (01/28/16) IIV NO PRSV INCREASED AG IM (08/17/18) LIPID PANEL (03/06/19) LUNG VENTILAT&PERFUS IMAGING (01/15/16) METABOLIC PANEL TOTAL CA (03/27/16) MR-STAPH DNA AMP PROBE (03/26/16) MRI NECK SPINE W/O DYE (04/26/18) OFFICE/OUTPATIENT VISIT EST (07/12/19) OFFICE/OUTPATIENT VISIT EST (09/14/18) OFFICE/OUTPATIENT VISIT EST (07/26/18) OFFICE/OUTPATIENT VISIT EST (07/21/18) OFFICE/OUTPATIENT VISIT NEW (08/17/18) OT EVALUATION (04/06/16) PROTHROMBIN TIME (07/12/19) PT EVALUATION (04/06/16) ROUTINE VENIPUNCTURE (07/12/19) SCR MAMMO BI INCL CAD (02/11/18) SELF CARE MNGMENT TRAINING (04/06/16) THER/PROPH/DIAG INJ IV PUSH (05/27/18) THERAPEUTIC EXERCISES (04/06/16) THROMBOPLASTIN TIME PARTIAL (07/12/19) TX/PRO/DX INJ NEW DRUG ADDON (05/27/18) TX/PRO/DX INJ SAME DRUG LINE LEAD (05/27/18) ULTRASOUND BREAST LIMITED (09/06/18) UR ALBUMIN SEMIQUANTITATIVE (05/13/15) URINALYSIS AUTO W/O SCOPE (01/18/18) URINALYSIS AUTO W/SCOPE (03/06/19) US COMPL JOINT R-T W/IMG (04/14/17) X-RAY EXAM CHEST 1 VIEW (05/27/18) X-RAY EXAM CHEST 2 VIEWS (07/12/19) X-RAY EXAM NECK SPINE 2-3 VW (06/08/18) X-RAY EXAM OF FOOT (03/05/14) X-RAY EXAM OF KNEE 3 (12/23/16) Problem List Initiated/Reviewed/Updated: Yes Plan: Assessment/Plan: Acute: S/p Right Reverse Total Shoulder Arthroplasty - Defer to Primary Team Right Shoulder OA - Pain Management defer to Primary Team Post-Operative Care - Patient is clinically and hemodynamically stable - Hgb stable at 10.8 grams - Pain is controlled and no acute issues Chronic: AR, HTN, HLD, AAA, Asthma, CKD Stage 3, KELTON, Depression, Fibromyalgia, Post Menopausal, Hot Flashes, Vaginal Prolapse, Insomnia, and IBS Plan: From the hospitalist standpoint, patient is doing relatively well. We recommend continuing her home medications, and routine AM labs. Any changes or further recommendations will be based on the patient's course. Thank you for the opportunity to participate in the management of this patient. We will follow her along with you. Requesting Provider: Dr. Leblanc Date Consult Requested: 08/07/19 Reason for Consult: Post-operative Care Patient History Reviewed: Yes Admission H&P Reviewed: Yes Consult Result/Summary:: Stable Notified Requestor: Yes Time Spent (in minutes): 15
--- NOTE | 2019-08-08 07:53 | PCM48HPAN ---
Post Anesthesia Note - EVALUATION WITHIN 48HRS OF ANESTHETIC Vital Signs in Normal Range: Yes Patient Participated in Evaluation: Yes Respiratory Function Stable: Yes Airway Patent: Yes Cardiovascular Function Stable: Yes Hydration Status Stable: Yes Pain Control Satisfactory: Yes Nausea and Vomiting Control Satisfactory: Yes Mental Status Recovered: Yes Vital Signs: Last Vital Signs Temp 36.0 C 08/08/19 04:12 Pulse 74 08/08/19 04:12 Resp 20 08/08/19 04:12 BP 122/81 08/08/19 04:12 Pulse Ox 94 L 08/08/19 06:14 - COMMENTS/OBSERVATIONS Free Text/Narrative:: no anesthesia complications noted
--- NOTE | 2019-08-08 08:08 | PCM.SURGPN ---
- General Info Date of Service: 08/08/19 POD#: 1 Functional Status: Reports: Pain Controlled, Tolerating Diet, Ambulating, Urinating, Incentive Spirometry - Patient Data Vitals - Most Recent: Last Vital Signs Temp 96.8 F 08/08/19 04:12 Pulse 74 08/08/19 04:12 Resp 20 08/08/19 04:12 BP 122/81 08/08/19 04:12 Pulse Ox 94 L 08/08/19 06:14 Weight - Most Recent: 128 lb 12.8 oz I&O - Last 24 Hours: Intake & Output 08/07/19 08/08/19 08/08/19 22:59 06:59 14:59 Intake Total 200 600 Output Total 550 Balance 200 50 Lab Results Last 24 Hrs: Laboratory Results - last 24 hr 08/08/19 08/08/19 Range/Units 05:55 05:55 WBC 9.48 (3.98-10.04) K/mm3 RBC 3.40 L (3.98-5.22) M/mm3 Hgb 10.8 L D (11.2-15.7) gm/dl Hct 33.1 L (34.1-44.9) % MCV 97.4 H (79.4-94.8) fl MCH 31.8 (25.6-32.2) pg MCHC 32.6 (32.2-35.5) g/dl RDW Std Deviation 44.8 (36.4-46.3) fL Plt Count 161 L (182-369) K/mm3 MPV 10.5 (9.4-12.3) fl Sodium 135 L (136-145) mEq/L Potassium 4.6 (3.5-5.1) mEq/L Chloride 102 (98-107) mEq/L Carbon Dioxide 23 (21-32) mEq/L Anion Gap 14.6 (5-15) BUN 26 H (7-18) mg/dL Creatinine 1.1 H (0.55-1.02) mg/dL Est Cr Clr Drug Dosing 35.99 mL/min Estimated GFR (MDRD) 48 (>60) mL/min BUN/Creatinine Ratio 23.6 H (14-18) Glucose 160 H (83-115) mg/dL Calcium 8.7 (8.5-10.1) mg/dL Total Bilirubin 0.4 (0.2-1.0) mg/dL AST 19 (15-37) U/L ALT 18 (14-59) U/L Alkaline Phosphatase 54 (46-116) U/L Total Protein 5.5 L (6.4-8.2) g/dl Albumin 2.8 L (3.4-5.0) g/dl Globulin 2.7 gm/dL Albumin/Globulin Ratio 1.0 (1-2) Med Orders - Current: Current Medications Hydrocodone Bitart/Acetaminophen ([place] 325-5 Mg) 1 - 2 tab PO Q4H PRN PRN Reason: Pain Last Admin: 08/08/19 00:09 Dose: 2 tab Amlodipine Besylate (Norvasc) 2.5 mg PO DAILY [facility] Aspirin (Ecotrin) 325 mg PO DAILY [facility] Bisacodyl (Dulcolax) 5 mg PO DAILY PRN PRN Reason: Constipation Cholecalciferol (Vitamin D3) 100 mcg PO DAILY [facility] Cyanocobalamin (Vitamin B12) 1,000 mcg PO DAILY [facility] Cyclobenzaprine HCl (Flexeril) 5 mg PO BID PRN PRN Reason: Spasms Last Admin: 08/07/19 20:22 Dose: 5 mg Docusate Sodium (Colace) 100 mg PO BID [facility] Last Admin: 08/07/19 20:23 Dose: 100 mg Famotidine (Pepcid) 20 mg PO Q12H [facility] Last Admin: 08/07/19 20:22 Dose: 20 mg Cefazolin Sodium/Dextrose 2 gm (/ Premix) 50 mls @ 100 mls/hr IV Q8H [facility] Stop: 08/08/19 11:29 Last Admin: 08/08/19 03:22 Dose: 100 mls/hr Ketorolac Tromethamine (Toradol) 15 mg IVPUSH Q6H PRN PRN Reason: Pain Last Admin: 08/07/19 17:16 Dose: 15 mg Losartan Potassium (Cozaar) 50 mg PO DAILY [facility] Magnesium Hydroxide (Milk Of Magnesia) 30 ml PO BID PRN PRN Reason: Constipation Metoprolol Succinate (Toprol Xl) 200 mg PO DAILY [facility] Mometasone Furoate/Formoterol Fumar (Dulera 100-5 Mcg) 2 puff IH BIDRT [facility] Last Admin: 08/08/19 06:14 Dose: 2 puff Morphine Sulfate (Morphine) 2 mg IVPUSH Q2H PRN PRN Reason: Breakthrough Pain Multivitamins (Thera) 1 each PO DAILY [facility] Naloxone HCl (Narcan) 0.1 mg IVPUSH Q5M PRN PRN Reason: Oversedation Ondansetron HCl (Zofran) 4 mg IVPUSH Q6H PRN PRN Reason: Nausea/Vomiting Estradiol [Estrogel] (1 Applic) 0 each TOP DAILY [facility] Progesterone, (Micronizized 200 Mg) 0 each PO DAILY [facility] Senna (Senna) 8.6 mg PO BID PRN PRN Reason: Constipation Simvastatin (Zocor) 20 mg PO BEDTIME [facility] Last Admin: 08/07/19 20:22 Dose: 20 mg Zolpidem Tartrate (Ambien) 10 mg PO BEDTIME PRN PRN Reason: Insomnia Last Admin: 08/07/19 22:01 Dose: 5 mg Discontinued Medications Albuterol (Proventil Neb Soln) 2.5 mg NEB ONETIME PRN PRN Reason: bronchodilation Stop: 08/07/19 14:00 Last Admin: 08/07/19 10:32 Dose: 2.5 mg Albuterol (Proventil Neb Soln) 2.5 mg NEB ONETIME PRN PRN Reason: bronchodilation Stop: 08/07/19 18:00 Albuterol (Proventil Neb Soln) 2.5 mg NEB ONETIME ONE Stop: 08/07/19 13:53 Last Admin: 08/07/19 17:06 Dose: Not Given Cefazolin Sodium (Ancef) Confirm Administered Dose 2 gm .ROUTE .STK-MED ONE Stop: 08/07/19 09:25 Last Admin: 08/07/19 13:12 Dose: 2 gm Cefazolin Sodium (Ancef) Confirm Administered Dose 2 gm .ROUTE .STK-MED ONE Stop: 08/07/19 11:03 Dexamethasone (Dexamethasone) Confirm Administered Dose 20 mg .ROUTE .STK-MED ONE Stop: 08/07/19 09:25 Diphenhydramine HCl (Benadryl) 25 mg IVPUSH Q6H PRN PRN Reason: pruritis Stop: 08/07/19 18:00 Ephedrine Sulfate (Ephedrine Sulfate) 5 mg IVPUSH ASDIRECTED PRN PRN Reason: Hypotension Stop: 08/07/19 18:00 Ephedrine Sulfate (Ephedrine In Ns) Confirm Administered Dose 25 mg .ROUTE .STK- MED ONE Stop: 08/07/19 12:27 Ephedrine Sulfate (Ephedrine In Ns) Confirm Administered Dose 25 mg .ROUTE .STK- MED ONE Stop: 08/07/19 13:07 Epinephrine HCl (Adrenalin) Confirm Administered Dose 1 mg .ROUTE .STK-MED ONE Stop: 08/07/19 06:48 Fentanyl (Sublimaze) Confirm Administered Dose 250 mcg .ROUTE .STK-MED ONE Stop: 08/07/19 09:26 Fentanyl (Sublimaze) 50 mcg IVPUSH Q5M PRN PRN Reason: Pain Stop: 08/07/19 18:00 Fentanyl (Sublimaze) 50 mcg IVPUSH Q5M PRN PRN Reason: pain Stop: 08/07/19 16:00 Glycopyrrolate () Confirm Administered Dose 1 mg .ROUTE .STK-MED ONE Stop: 08/07/19 12:55 Hydromorphone HCl (Dilaudid) 0.5 mg IVPUSH Q15M PRN PRN Reason: Pain (severe 7-10) Stop: 08/07/19 18:00 Lactated Ringer's (Ringers, Lactated) 1,000 mls @ 125 mls/hr IV ASDIRECTED [facility]KO Stop: 08/07/19 23:00 Lidocaine HCl (Xylocaine-Mpf 1%) Confirm Administered Dose 8 mls @ as directed .ROUTE .STK-MED ONE Stop: 08/07/19 09:25 Lactated Ringer's (Ringers, Lactated) Confirm Administered Dose 1,000 mls @ as directed .ROUTE .STK-MED ONE Stop: 08/07/19 09:25 Phenylephrine HCl 1 mg/ Sodium (Chloride) 10.1 mls @ 1 mls/sec IV TITRATE MIKO; Protocol Stop: 08/07/19 18:00 Iodine (Iodine 2% Mild Tincture) Confirm Administered Dose 30 ml .ROUTE .STK- MED ONE Stop: 08/07/19 11:03 Last Admin: 08/07/19 13:10 Dose: 18 ml Lidocaine/Sodium Bicarbonate (Buffered Lidocaine 1% In Ns 8.4%) 0.25 ml IDERM ONETIME PRN PRN Reason: Prior to IV Start Stop: 08/07/19 18:00 Midazolam HCl (Versed 1 Mg/Ml) Confirm Administered Dose 2 mg .ROUTE .STK-MED ONE Stop: 08/07/19 09:26 Midazolam HCl (Versed 1 Mg/Ml) 2 mg IVPUSH ONETIME PRN PRN Reason: Sedation Stop: 08/07/19 18:00 Neostigmine Methylsulfate (Neostigmine) Confirm Administered Dose 5 mg .ROUTE .STK-MED ONE Stop: 08/07/19 12:55 Non-Formulary Medication (Ubidecarenone [Co Q-10]) 800 mg PO DAILY [facility] Ondansetron HCl (Zofran) Confirm Administered Dose 4 mg .ROUTE .STK-MED ONE Stop: 08/07/19 09:25 Ondansetron HCl (Zofran) 4 mg IVPUSH ONETIME PRN PRN Reason: Nausea/Vomiting Stop: 08/07/19 18:00 Phenylephrine HCl (Phenylephrine In Ns 100 Mcg/Ml) Confirm Administered Dose 1 mg .ROUTE .STK-MED ONE Stop: 08/07/19 12:16 Propofol (Diprivan 20 Ml) Confirm Administered Dose 200 mg .ROUTE .STK-MED ONE Stop: 08/07/19 09:26 Rocuronium [place] (Zemuron) Confirm Administered Dose 50 mg .ROUTE .STK-MED ONE Stop: 08/07/19 09:25 Ropivacaine (Naropin 0.5%) Confirm Administered Dose 30 ml .ROUTE .STK-MED ONE Stop: 08/07/19 06:48 Sodium Chloride (Saline Flush) 10 ml FLUSH ASDIRECTED PRN PRN Reason: Keep Vein Open Stop: 08/07/19 18:00 Tranexamic Acid (Cyklokapron) Confirm Administered Dose 1,000 mg .ROUTE .STK- MED ONE Stop: 08/07/19 11:03 Last Admin: 08/07/19 13:15 Dose: 1,000 mg Vancomycin HCl (Vancomycin) Confirm Administered Dose 1 gm .ROUTE .STK-MED ONE Stop: 08/07/19 11:03 Last Admin: 08/07/19 13:15 Dose: 1 gm - Exam Wound/Incisions: Dressing Dry and Intact General: Alert, Cooperative, No Acute Distress Lungs: Normal Respiratory Effort Extremities: Other (NVS intact for RUE.) - Problem List Review Problem List Initiated/Reviewed/Updated: Yes - My Orders Last 24 Hours: Active Orders 24 hr Category Date Time Status Notify Provider [RC] ASDIRECTED Care 08/07/19 12:26 Active RT Aerosol Therapy [RC] ASDIRECTED Care 08/07/19 09:40 Active Ready for Discharge [RC] PER UNIT ROUTINE Care 08/08/19 08:06 Ordered Regular Diet [DIET] Diet 08/07/19 Lunch Active Aspirin [Ecotrin] Med 08/08/19 09:00 Active 325 mg PO DAILY Bisacodyl [Dulcolax] Med 08/07/19 21:00 Active 5 mg PO DAILY PRN Cholecalciferol (Vitamin D3) [Vitamin D3] Med 08/08/19 09:00 Active 100 mcg PO DAILY Cyanocobalamin (Vitamin B12) [Vitamin B12] Med 08/08/19 09:00 Active 1,000 mcg PO DAILY Docusate Sodium [Colace] Med 08/07/19 21:00 Active 100 mg PO BID Famotidine [Pepcid] Med 08/07/19 21:00 Active 20 mg PO Q12H Ketorolac [Toradol] Med 08/07/19 14:00 Active 15 mg IVPUSH Q6H PRN Losartan [Cozaar] Med 08/08/19 09:00 Active 50 mg PO DAILY Metoprolol Succinate [Toprol XL] Med 08/08/19 09:00 Active 200 mg PO DAILY Mometasone/Formoterol [Dulera 100-5 MCG] Med 08/07/19 21:00 Active 2 puff IH BIDRT Multivitamins,Therapeutic [Thera] Med 08/08/19 09:00 Active 1 each PO DAILY Patient's Own Medication [Ptom] Med 08/08/19 09:00 Active 0 each PO DAILY Patient's Own Medication [Ptom] Med 08/08/19 09:00 Active 0 each TOP DAILY Sennosides [Senna] Med 08/07/19 21:00 Active 8.6 mg PO BID PRN Simvastatin [Zocor] Med 08/07/19 21:00 Active 20 mg PO BEDTIME Zolpidem [Ambien] Med 08/07/19 15:36 Active 10 mg PO BEDTIME PRN amLODIPine [Norvasc] Med 08/08/19 09:00 Active 2.5 mg PO DAILY ceFAZolin [Ancef] 2 gm Med 08/07/19 19:00 Active Premix Bag 1 bag IV Q8H Medication Orders Hydrocodone Bitart/Acetaminophen ([place] 325-5 Mg) 1 - 2 tab PO Q4H PRN PRN Reason: Pain Last Admin: 08/08/19 00:09 Dose: 2 tab Admin: 08/07/19 18:29 Dose: 2 tab Amlodipine Besylate (Norvasc) 2.5 mg PO DAILY [facility] Aspirin (Ecotrin) 325 mg PO DAILY [facility] Bisacodyl (Dulcolax) 5 mg PO DAILY PRN PRN Reason: Constipation Cholecalciferol (Vitamin D3) 100 mcg PO DAILY [facility] Cyanocobalamin (Vitamin B12) 1,000 mcg PO DAILY [facility] Cyclobenzaprine HCl (Flexeril) 5 mg PO BID PRN PRN Reason: Spasms Last Admin: 08/07/19 20:22 Dose: 5 mg Docusate Sodium (Colace) 100 mg PO BID [facility] Last Admin: 08/07/19 20:23 Dose: 100 mg Famotidine (Pepcid) 20 mg PO Q12H [facility] Last Admin: 08/07/19 20:22 Dose: 20 mg Cefazolin Sodium/Dextrose 2 gm (/ Premix) 50 mls @ 100 mls/hr IV Q8H [facility] Stop: 08/08/19 11:29 Last Admin: 08/08/19 03:22 Dose: 100 mls/hr Infusion: 08/07/19 18:59 Dose: 100 mls/hr Admin: 08/07/19 18:29 Dose: 100 mls/hr Ketorolac Tromethamine (Toradol) 15 mg IVPUSH Q6H PRN PRN Reason: Pain Last Admin: 08/07/19 17:16 Dose: 15 mg Losartan Potassium (Cozaar) 50 mg PO DAILY [facility] Magnesium Hydroxide (Milk Of Magnesia) 30 ml PO BID PRN PRN Reason: Constipation Metoprolol Succinate (Toprol Xl) 200 mg PO DAILY [facility] Mometasone Furoate/Formoterol Fumar (Dulera 100-5 Mcg) 2 puff IH BIDRT [facility] Last Admin: 08/08/19 06:14 Dose: 2 puff Admin: 08/07/19 20:54 Dose: 2 puff Morphine Sulfate (Morphine) 2 mg IVPUSH Q2H PRN PRN Reason: Breakthrough Pain Multivitamins (Thera) 1 each PO DAILY [facility] Naloxone HCl (Narcan) 0.1 mg IVPUSH Q5M PRN PRN Reason: Oversedation Ondansetron HCl (Zofran) 4 mg IVPUSH Q6H PRN PRN Reason: Nausea/Vomiting Estradiol [Estrogel] (1 Applic) 0 each TOP DAILY [facility] Progesterone, (Micronizized 200 Mg) 0 each PO DAILY [facility] Senna (Senna) 8.6 mg PO BID PRN PRN Reason: Constipation Simvastatin (Zocor) 20 mg PO BEDTIME [facility] Last Admin: 08/07/19 20:22 Dose: 20 mg Zolpidem Tartrate (Ambien) 10 mg PO BEDTIME PRN PRN Reason: Insomnia Last Admin: 08/07/19 22:01 Dose: 5 mg - Assessment Assessment (Free Text/Narrative):: POD#1 - right reverse TSA - Plan Plan (Free Text/Narrative):: 1. Hgb 10.8. 2. Discharge to home today. 3. 325mg ASA PO daily. 4. Outpatient therapy. The pt's case was discussed with Dr. Leblanc.
[2019-08-08] MEDS: Famotidine 20 MG Tab PO SCH (08:12)
[2019-08-08] MEDS: Docusate Sodium 100 MG Cap PO SCH (08:12)
[2019-08-08] MEDS ORDERED: Metoprolol Succinate 50 MG Tab.ER PO SCH (09:00)
[2019-08-08] MEDS ORDERED: amLODIPine 2.5 MG Tab PO SCH (09:00)
[2019-08-08] MEDS ORDERED: UBIDECARENONE PO SCH (09:00)
[2019-08-08] MEDS ORDERED: Multivitamins,Therapeutic Tab PO SCH (09:00)
[2019-08-08] MEDS ORDERED: Aspirin 325 MG Tab.EC PO SCH (09:00)
[2019-08-08] MEDS ORDERED: PROGESTERONE 200 MG PO SCH (09:00)
[2019-08-08] MEDS ORDERED: ESTRADIOL TOP SCH (09:00)
[2019-08-08] MEDS ORDERED: Losartan 25 MG Tab PO SCH (09:00)
[2019-08-08] MEDS ORDERED: Cholecalciferol (Vitamin D3) 25 MCG Tab PO SCH (09:00)
[2019-08-08] MEDS ORDERED: Cyanocobalamin (Vitamin B12) 1,000 MCG Tab PO SCH (09:00)
[2019-08-08] MEDS: Ketorolac 15 MG/ML SDV IVPUSH PRN (10:30)
[2019-08-08 14:01] VITALS: BP 123/70; PULSE 66
--- NOTE | 2019-08-09 08:07 | PCM.DCSUM1 ---
Discharge Summary - Hospital Course Brief History: Emma is a 74 yo female who underwent right reverse TSA with Dr. Leblanc on 08-07-2019. The procedure was completed under general anesthesia with regional block. The pt tolerated the procedure well and was admitted to the Medical-Surgical Unit. Medical management was provided by the Hospitalist service. The pt's Hospital course was uneventful. The pt's Hgb on POD#1 was 10.8. On POD#1, 325mg ASA daily was initiated for VTE prophylaxis. SCDs and TEDs were also ordered. A Mepilex dressing was placed at the incision site at the time of surgery and remained clean and dry. The pt participated in P.T. and O.T. and progressed well. On POD#1, the pt was deemed appropriate to discharge to home with her . - Discharge Data Discharge Date: 08/08/19 Discharge Disposition: Home, Self-Care 01 Condition: Good - Referral to Home Health Primary Care Physician: Lalita Garcia NP - Patient Summary/Data Consults: Consultations 08/07/19 06:50 OT Evaluation and Treatment [CONS] Routine PT Evaluation and Treatment [CONS] Routine 08/07/19 06:51 Consult to Physician [CONS] Routine - Patient Instructions Diet: Usual Diet as Tolerated Activity: Apply Ice, As Tolerated, Elevate Extremity Activity, Other: No forceful use of the surgical limb. Driving: Do Not Drive Showering/Bathing: May Shower Wound/Incision Care: Keep Operative Site/Wound Site Clean and Dry, Do NOT Change Dressing Notify Provider of: Fever, Increased Pain, Swelling and Redness, Drainage, Nausea and/or Vomiting Other/Special Instructions: Please get up and moving around EVERY HOUR while awake. This helps to prevent blood clots. Please help with mobility as needed. Take a short walk in your home every hour while awake. Please take 325mg Aspirin daily. The aspirin is being used for blood clot prevention and not for pain management so please do not miss a dose of the medication. You could use a medication like Pepcid and a medication like Prilosec or Nexium to protect your stomach while you are using the aspirin. At home, please complete the exercises that you learned during the Hospital stay. Schedule for occupational or physical therapy. Use the pain medication as needed. The medication may cause drowsiness and constipation. Contact your primary care provider for instructions if you are constipated. You may use a stool softener like docusate sodium or Colace 100mg twice daily and/or a laxative like Miralax daily for constipation. Increase your water and fiber intake while you are using the pain medication. Discontinue use of the pain medication as soon as able. Please do not use other medications that may cause drowsiness (other pain medications, anxiety pills, cold medications, sleeping pills, etc) while using the prescription pain medication. Do not use alcohol while using the pain medication. You may use acetaminophen or Tylenol for pain management, however, please ensure you are not using over 4000 mg or 4 grams of acetaminophen per day from all sources. Your pain medication has 325mg of acetaminophen per tablet. Wear the CARLOS hose during the day and you may remove these at night. Elevate the limb to decrease swelling. Place ice to the area often. Place a towel between your skin and the blue pad. Use the incentive spirometer often. Take deep breaths throughout the day. Please keep the dressing in place until follow-up. Notify the Clinic if the dressing becomes saturated. Increase your protein intake while you are healing. If you have diabetes, please closely monitor your blood sugars and notify your primary care provider with abnormal values. Elevated blood sugars increases the risk of infection. Call the Clinic with questions or concerns - [phone]. - Discharge Plan *PRESCRIPTION DRUG MONITORING PROGRAM REVIEWED*: No *COPY OF PRESCRIPTION DRUG MONITORING REPORT IN PATIENT [place]: No Prescriptions/Med Rec: Acetaminophen/HYDROcodone [Argenta 325-5 MG] 1 - 2 tab PO Q4H PRN #60 tablet PRN Reason: Pain Aspirin [Ecotrin EC] 325 mg PO DAILY #40 tab.ec Cyclobenzaprine [Flexeril] 5 mg PO BID PRN #20 tablet PRN Reason: Spasms Home Medications: Home Meds Cholecalciferol (Vitamin D3) [Vitamin D3] 4,000 unit PO DAILY 08/04/19 [History] Cyanocobalamin (Vitamin B12) [Vitamin B12] 1,000 mcg PO DAILY 08/04/19 [History] Estradiol [Estrogel] 1 applic TOP DAILY 08/04/19 [History] Fluticasone/Vilanterol [Breo Ellipta 100-25 MCG Inhalation Kit] 1 puff IH DAILY 08/04/19 [History] Losartan [Cozaar] 50 mg PO DAILY 08/04/19 [History] Metoprolol Succinate 200 mg PO DAILY 08/04/19 [History] Multivitamin [Daily Multiple Vitamin] 1 tab PO DAILY 08/04/19 [History] Progesterone, Micronized [Progesterone] 200 mg PO DAILY 08/04/19 [History] Ubidecarenone [Co Q-10] 800 mg PO DAILY 08/04/19 [History] Zolpidem Tartrate [Zolpidem Tartrate ER] 12.5 mg PO BEDTIME PRN 08/04/19 [ History] amLODIPine [Norvasc] 2.5 mg PO DAILY 08/04/19 [History] atorvaSTATin [Lipitor] 20 mg PO BEDTIME 08/04/19 [History] Acetaminophen/HYDROcodone [Argenta 325-5 MG] 1 - 2 tab PO Q4H PRN #60 tablet 08/08 [Rx] Aspirin [Ecotrin EC] 325 mg PO DAILY #40 tab.ec 08/08/19 [Rx] Bisacodyl [Dulcolax] 5 mg PO DAILY PRN tablet 08/08/19 [Rx] Cyclobenzaprine [Flexeril] 5 mg PO BID PRN #20 tablet 08/08/19 [Rx] Docusate Sodium [Colace] 100 mg PO BID cap 08/08/19 [Rx] Famotidine [Pepcid] 20 mg PO Q12H tablet 08/08/19 [Rx] Magnesium Hydroxide [Milk of Magnesia] 30 ml PO BID PRN cup 08/08/19 [Rx] Sennosides [Senna] 8.6 mg PO BID PRN tablet 08/08/19 [Rx] Referrals: Dolores Murillo PA-C [Physician Cell Attendant] - (You have 3 follow ups with Dolores Murillo as follows: 1) 08/15/19 at 0930 2) 08/22/19 at 0930 3) 09/19/19 at 0930 ) - Discharge Summary/Plan Comment DC Time >30 min.: No - Patient Data Vitals - Most Recent: Last Vital Signs Temp 96.8 F 08/08/19 04:12 Pulse 66 08/08/19 11:11 Resp 16 08/08/19 11:11 BP 123/70 08/08/19 11:11 Pulse Ox 95 08/08/19 11:11 Weight - Most Recent: 128 lb 12.8 oz Med Orders - Current: Current Medications Discontinued Medications Hydrocodone Bitart/Acetaminophen (Argenta 325-5 Mg) 1 - 2 tab PO Q4H PRN PRN Reason: Pain Last Admin: 08/08/19 13:11 Dose: 2 tab Albuterol (Proventil Neb Soln) 2.5 mg NEB ONETIME PRN PRN Reason: bronchodilation Stop: 08/07/19 14:00 Last Admin: 08/07/19 10:32 Dose: 2.5 mg Albuterol (Proventil Neb Soln) 2.5 mg NEB ONETIME PRN PRN Reason: bronchodilation Stop: 08/07/19 18:00 Albuterol (Proventil Neb Soln) 2.5 mg NEB ONETIME ONE Stop: 08/07/19 13:53 Last Admin: 08/07/19 17:06 Dose: Not Given Amlodipine Besylate (Norvasc) 2.5 mg PO DAILY [facility] Last Admin: 08/08/19 08:12 Dose: 2.5 mg Aspirin (Ecotrin) 325 mg PO DAILY [facility] Last Admin: 08/08/19 08:12 Dose: 325 mg Bisacodyl (Dulcolax) 5 mg PO DAILY PRN PRN Reason: Constipation Cefazolin Sodium (Ancef) Confirm Administered Dose 2 gm .ROUTE .STK-MED ONE Stop: 08/07/19 09:25 Last Admin: 08/07/19 13:12 Dose: 2 gm Cefazolin Sodium (Ancef) Confirm Administered Dose 2 gm .ROUTE .STK-MED ONE Stop: 08/07/19 11:03 Cholecalciferol (Vitamin D3) 100 mcg PO DAILY [facility] Last Admin: 08/08/19 08:12 Dose: 100 mcg Cyanocobalamin (Vitamin B12) 1,000 mcg PO DAILY [facility] Last Admin: 08/08/19 08:12 Dose: 1,000 mcg Cyclobenzaprine HCl (Flexeril) 5 mg PO BID PRN PRN Reason: Spasms Last Admin: 08/07/19 20:22 Dose: 5 mg Dexamethasone (Dexamethasone) Confirm Administered Dose 20 mg .ROUTE .STK-MED ONE Stop: 08/07/19 09:25 Diphenhydramine HCl (Benadryl) 25 mg IVPUSH Q6H PRN PRN Reason: pruritis Stop: 08/07/19 18:00 Docusate Sodium (Colace) 100 mg PO BID [facility] Last Admin: 08/08/19 08:12 Dose: 100 mg Ephedrine Sulfate (Ephedrine Sulfate) 5 mg IVPUSH ASDIRECTED PRN PRN Reason: Hypotension Stop: 08/07/19 18:00 Ephedrine Sulfate (Ephedrine In Ns) Confirm Administered Dose 25 mg .ROUTE .STK- MED ONE Stop: 08/07/19 12:27 Ephedrine Sulfate (Ephedrine In Ns) Confirm Administered Dose 25 mg .ROUTE .STK- MED ONE Stop: 08/07/19 13:07 Epinephrine HCl (Adrenalin) Confirm Administered Dose 1 mg .ROUTE .STK-MED ONE Stop: 08/07/19 06:48 Famotidine (Pepcid) 20 mg PO Q12H [facility] Last Admin: 08/08/19 08:12 Dose: 20 mg Famotidine (Pepcid) 20 mg PO DAILY [facility] Fentanyl (Sublimaze) Confirm Administered Dose 250 mcg .ROUTE .STK-MED ONE Stop: 08/07/19 09:26 Fentanyl (Sublimaze) 50 mcg IVPUSH Q5M PRN PRN Reason: Pain Stop: 08/07/19 18:00 Fentanyl (Sublimaze) 50 mcg IVPUSH Q5M PRN PRN Reason: pain Stop: 08/07/19 16:00 Glycopyrrolate () Confirm Administered Dose 1 mg .ROUTE .STK-MED ONE Stop: 08/07/19 12:55 Hydromorphone HCl (Dilaudid) 0.5 mg IVPUSH Q15M PRN PRN Reason: Pain (severe 7-10) Stop: 08/07/19 18:00 Lactated Ringer's (Ringers, Lactated) 1,000 mls @ 125 mls/hr IV ASDIRECTED MIKO Stop: 08/07/19 23:00 Cefazolin Sodium/Dextrose 2 gm (/ Premix) 50 mls @ 100 mls/hr IV Q8H [facility] Stop: 08/08/19 11:29 Last Admin: 08/08/19 11:06 Dose: 100 mls/hr Lidocaine HCl (Xylocaine-Mpf 1%) Confirm Administered Dose 8 mls @ as directed .ROUTE .STK-MED ONE Stop: 08/07/19 09:25 Lactated Ringer's (Ringers, Lactated) Confirm Administered Dose 1,000 mls @ as directed .ROUTE .STK-MED ONE Stop: 08/07/19 09:25 Phenylephrine HCl 1 mg/ Sodium (Chloride) 10.1 mls @ 1 mls/sec IV TITRATE MIKO; Protocol Stop: 08/07/19 18:00 Iodine (Iodine 2% Mild Tincture) Confirm Administered Dose 30 ml .ROUTE .STK- MED ONE Stop: 08/07/19 11:03 Last Admin: 08/07/19 13:10 Dose: 18 ml Ketorolac Tromethamine (Toradol) 15 mg IVPUSH Q6H PRN PRN Reason: Pain Last Admin: 08/08/19 10:30 Dose: 15 mg Lidocaine/Sodium Bicarbonate (Buffered Lidocaine 1% In Ns 8.4%) 0.25 ml IDERM ONETIME PRN PRN Reason: Prior to IV Start Stop: 08/07/19 18:00 Losartan Potassium (Cozaar) 50 mg PO DAILY [facility] Last Admin: 08/08/19 08:11 Dose: 50 mg Magnesium Hydroxide (Milk Of Magnesia) 30 ml PO BID PRN PRN Reason: Constipation Metoprolol Succinate (Toprol Xl) 200 mg PO DAILY [facility] Last Admin: 08/08/19 08:11 Dose: 200 mg Midazolam HCl (Versed 1 Mg/Ml) Confirm Administered Dose 2 mg .ROUTE .STK-MED ONE Stop: 08/07/19 09:26 Midazolam HCl (Versed 1 Mg/Ml) 2 mg IVPUSH ONETIME PRN PRN Reason: Sedation Stop: 08/07/19 18:00 Mometasone Furoate/Formoterol Fumar (Dulera 100-5 Mcg) 2 puff IH BIDRT [facility] Last Admin: 08/08/19 06:14 Dose: 2 puff Morphine Sulfate (Morphine) 2 mg IVPUSH Q2H PRN PRN Reason: Breakthrough Pain Multivitamins (Thera) 1 each PO DAILY [facility] Last Admin: 08/08/19 08:11 Dose: 1 each Naloxone HCl (Narcan) 0.1 mg IVPUSH Q5M PRN PRN Reason: Oversedation Neostigmine Methylsulfate (Neostigmine) Confirm Administered Dose 5 mg .ROUTE .STK-MED ONE Stop: 08/07/19 12:55 Non-Formulary Medication (Ubidecarenone [Co Q-10]) 800 mg PO DAILY [facility] Ondansetron HCl (Zofran) 4 mg IVPUSH Q6H PRN PRN Reason: Nausea/Vomiting Ondansetron HCl (Zofran) Confirm Administered Dose 4 mg .ROUTE .STK-MED ONE Stop: 08/07/19 09:25 Ondansetron HCl (Zofran) 4 mg IVPUSH ONETIME PRN PRN Reason: Nausea/Vomiting Stop: 08/07/19 18:00 Estradiol [Estrogel] (1 Applic) 0 each TOP DAILY [facility] Last Admin: 08/08/19 08:16 Dose: Not Given Progesterone, (Micronizized 200 Mg) 0 each PO DAILY [facility] Last Admin: 08/08/19 08:16 Dose: Not Given Phenylephrine HCl (Phenylephrine In Ns 100 Mcg/Ml) Confirm Administered Dose 1 mg .ROUTE .STK-MED ONE Stop: 08/07/19 12:16 Propofol (Diprivan 20 Ml) Confirm Administered Dose 200 mg .ROUTE .STK-MED ONE Stop: 08/07/19 09:26 Rocuronium Big Pool (Zemuron) Confirm Administered Dose 50 mg .ROUTE .STK-MED ONE Stop: 08/07/19 09:25 Ropivacaine (Naropin 0.5%) Confirm Administered Dose 30 ml .ROUTE .STK-MED ONE Stop: 08/07/19 06:48 Senna (Senna) 8.6 mg PO BID PRN PRN Reason: Constipation Simvastatin (Zocor) 20 mg PO BEDTIME [facility] Last Admin: 08/07/19 20:22 Dose: 20 mg Sodium Chloride (Saline Flush) 10 ml FLUSH ASDIRECTED PRN PRN Reason: Keep Vein Open Stop: 08/07/19 18:00 Tranexamic Acid (Cyklokapron) Confirm Administered Dose 1,000 mg .ROUTE .STK- MED ONE Stop: 08/07/19 11:03 Last Admin: 08/07/19 13:15 Dose: 1,000 mg Vancomycin HCl (Vancomycin) Confirm Administered Dose 1 gm .ROUTE .STK-MED ONE Stop: 08/07/19 11:03 Last Admin: 08/07/19 13:15 Dose: 1 gm Zolpidem Tartrate (Ambien) 10 mg PO BEDTIME PRN PRN Reason: Insomnia Last Admin: 08/07/19 22:01 Dose: 5 mg
[2019-08-09] MEDS ORDERED: Famotidine 20 MG Tab PO SCH (09:00)
--- NOTE | 2019-08-11 10:39 | PCM.OPNOTE ---
- General Post-Op/Procedure Note Date of Surgery/Procedure: 08/07/19 Operative Procedure(s): right reverse total shoulder arthroplasty Pre Op Diagnosis: right shoulder rotator cuff tear arthropathy Post-Op Diagnosis: Same Anesthesia Technique: General ET Tube, Regional Block Primary Surgeon: Adria Leblanc Anesthesia Provider: Love Pires Putaway Driver: Dolores Murillo Putaway Driver: Cayla Childers EBL in mLs: 150 Complications: None Condition: Good
--- NOTE | 2019-08-11 11:22 | OR ---
DATE OF OPERATION: 08/07/2019 SURGEON: Adria Leblanc MD OPERATION PERFORMED: Right reverse total shoulder arthroplasty. PREOPERATIVE DIAGNOSIS: Right shoulder rotator cuff tear arthropathy. POSTOPERATIVE DIAGNOSIS: Right shoulder rotator cuff tear arthropathy. ANESTHESIA: General endotracheal intubation with regional interscalene block. ANESTHESIA PROVIDER: Love Pires CRNA. ASSISTANTS: Dolores Murillo PA-C; and Cayla Childers LPN. ESTIMATED BLOOD LOSS: 150 mL. COMPLICATIONS: None. CONDITION: Stable. IMPLANTS: 1. Ingalls size 8 humeral reverse stem. 2. Ingalls size 28 mm Concentric baseplate. 3. Carol size 4 mm polyethylene liner. 4. Ingalls size 32 +6 mm glenosphere. DESCRIPTION OF PROCEDURE: The patient was identified in the preoperative holding area. Proper site was marked and identified by the surgeon. The patient was taken back to the operating theater, where after adequate anesthesia, the patient's right upper extremity was sterilely prepped and draped in the usual sterile fashion. OR- wide time-out was performed. The patient received 2 g IV Ancef. At this time, a standard deltopectoral incision was made. This was taken down the cephalic vein. The cephalic vein was ligated, and the deltopectoral interval was freed of any adhesions in the subdeltoid space. Clavipectoral fascia was then incised and conjoined tendon was retracted medially. 0 Vicryl stick tie was used for ligation of the anterior humeral circumflex vessels. #2 FiberWire was used for tenodesis of the biceps tendon. The biceps tendon was then cut above this and was resected all the way back to the level of the glenoid and resected. Peel down of the subscapularis tendon was then done, and the humeral head was dislocated. Neck cut was then completed and found to be an adequate resection. Attention was turned to the glenoid. Posterior and anterior retractors were placed and circumferential removal of the remaining biceps capsule and labrum was then done. Guidepin was placed in a center-center position with roughly 10- degree inferior tilt. At this time, the Concentric reamer for the glenoid baseplate was done back to good bleeding cancellous bone. The glenoid baseplate with its central compression screw was then placed and was found to have adequate compression and bony contact the 32 +6 mm glenosphere was impacted into place and found to be well fixated. Attention was turned to the humerus. Starting with the 5 broach, I was able to broach up to a size 8, which was found to be rotationally and vertically stable. It was noted that there was a little bit of prominence and tightness to the shoulder yet with trial implants, so I did have to use the calcar planer. I was able to plane down the proximal humerus cut to the point where I thought +4 liner had adequate sikhism with full motion and with good tension, but no tension on the conjoined tendon and deltoid. The 8 mm stem 135-degree, the +4 liner were then constructed on the back table and then en bloc were impacted into the humerus. The shoulder was then relocated. C-arm fluoroscopy showed all positions to be in adequate position with good stability throughout range of motion with no signs of instability. At this time, 1 L dilute Betadine solution was irrigated through the shoulder along with 3 L of pulse lavage irrigation with Ancef. Topical tranexamic acid and also vancomycin powder were then placed. #2 Vicryl was used for closure subcutaneously and Prineo was used for the skin. The patient tolerated the procedure well and was sent to PACU in stable condition. DUNCAN /[id number] MTDD
== END 2019-08-08 13:24 | disposition home or self-care (01) | DRG 483 ==
LOC: JD.SDS 08:51 → JD.MS 15:31
PROVIDERS: ADMIT Orthopaedic Surgery; ATTEND Orthopaedic Surgery
PROC: 0RRJ00Z Replacement of Right Shoulder Joint with Reverse Ball and Socket Synthetic Substitute, Open Approach (ICD-10-PCS; principal; 2019-08-07)
DX: M19.011 Primary osteoarthritis, right shoulder (principal); I12.9 Hypertensive chronic kidney disease with stage 1 through stage 4 chronic kidney disease, or unspecified chronic kidney disease; N18.3 Chronic kidney disease, stage 3 (moderate); F32.9 Major depressive disorder, single episode, unspecified; M79.7 Fibromyalgia; E78.5 Hyperlipidemia, unspecified; G47.00 Insomnia, unspecified; G47.33 Obstructive sleep apnea (adult) (pediatric); E78.00 Pure hypercholesterolemia, unspecified; J44.9 Chronic obstructive pulmonary disease, unspecified; Z96.612 Presence of left artificial shoulder joint; Z79.51 Long term (current) use of inhaled steroids; Z79.899 Other long term (current) drug therapy; Z79.82 Long term (current) use of aspirin; Z88.5 Allergy status to narcotic agent; Z90.49 Acquired absence of other specified parts of digestive tract; Z90.89 Acquired absence of other organs; Z90.710 Acquired absence of both cervix and uterus; Z87.891 Personal history of nicotine dependence
CPT/HCPCS: 01638; 36415; 64415; 73020-26-RT; 73020-RT; 76000; 76000-26; 80053; 85027; 87641; 94640; 94760; 97110-GP; 97161-GP; 97165-GO; 97535-GO; A9270-GY; C1713; C1776; J0171; J0690; J1100; J1885; J2001; J2250; J2370; J2405; J2704; J2710; J2795; J3010; J3370; J7050; J7120

== ENCOUNTER 2020-03-04 07:30 | Inpatient (IN) | payer MEDICARE, OTHER ==
[2020-05-13] MEDS ORDERED: Lidocaine 1%/Sod Bicarbonate in NS 8.4% 1 ML Syringe IDERM PRN (00:01)
[2020-05-13] MEDS ORDERED: Lactated Ringers 1,000 ML IV SCH (00:01)
[2020-05-13] MEDS ORDERED: Sodium Chloride 0.9% 10 ML Syringe FLUSH PRN (00:01)
[2020-05-13] MEDS ORDERED: Morphine 2 MG/ML SYRINGE IVPUSH PRN (06:45)
[2020-05-13] MEDS ORDERED: Magnesium Hydroxide 400 MG/5 ML Susp 30 ML Cup PO PRN (06:45)
[2020-05-13] MEDS ORDERED: Naloxone 0.4 MG/ML SDV IVPUSH PRN (06:45)
[2020-05-13] MEDS ORDERED: Ondansetron 4 MG/2 ML SDV IVPUSH PRN (06:45)
--- NOTE | 2020-05-13 11:50 | PCM.CONS ---
H&P History of Present Illness - General Date of Service: 05/13/20 Admit Problem/Dx: Admission Diagnosis/Problem Admission Diagnosis/Problem Osteoarthritis of knee Source of Information: Patient, Old Records, Provider, RN, RN Notes Reviewed History Limitations: Reports: No Limitations - History of Present Illness Initial Comments - Free Text/Narative: Emma Meza is a 75 yo female patient of Dr. Leblanc who is post-operative day 0 of right TKA. Hospital medicine was consulted for post-operative medical care of the following listed medical conditions. At this time she is resting comfortably in bed. Pain is not well controlled but nursing is working on this. She denies any chest pain, shortness of breath, palpitations, nausea, or vomiting. She reports her right foot is itchy. She carries a history of: Ascending aortic aneurism, Asthma, KELTON, History of CKD stage 3, COPD, Depression, Fibromyalgia, HTN, HLD, Insomnia, IBS, GERD, Chronic neck pain, Vitamin D deficiency. She is a former smoker. She is a full code. Her primary care provider is Lalita Garcia NP. - Related Data Allergies/Adverse Reactions: Allergies Allergy/AdvReac Type Severity Reaction Status Date / Time oxycodone AdvReac Hallucinati Verified 08/07/19 10:06 ons Home Medications: Home Meds RX: Cyanocobalamin (Vitamin B12) [Vitamin B12] 1,000 mcg PO DAILY 08/04/19 [History] RX: Metoprolol Succinate 100 mg PO DAILY 08/04/19 [History] RX: Multivitamin [Daily Multiple Vitamin] 1 tab PO DAILY 08/04/19 [History] RX: Ubidecarenone [Co Q-10] 800 mg PO DAILY 08/04/19 [History] RX: Zolpidem Tartrate [Zolpidem Tartrate ER] 12.5 mg PO BEDTIME PRN 08/04/19 [History] RX: atorvaSTATin [Lipitor] 20 mg PO BEDTIME 08/04/19 [History] Cholecalciferol (Vitamin D3) [Vitamin D3] 5,000 unit PO DAILY 05/10/20 [History] Fluticasone/Umeclidin/Vilanter [Trelegy Ellipta 100-62.5-25] 1 puff INH DAILY 05/10/20 [History] Losartan Potassium 100 mg PO DAILY 05/10/20 [History] RX: Escitalopram [Lexapro] 10 mg PO DAILY 05/10/20 [History] prednisoLONE Acetate [Prednisolone Acetate] 1 drop EYEBOTH ASDIRECTED 05/10/20 [History] proGESTerone [Progesterone In Oil] 1 dose TOP DAILY 05/10/20 [History] Past Medical History HEENT History: Reports: Allergic Rhinitis, Otitis Media, Sinusitis, Other (See Below) Other HEENT History: wears eyeglasses Cardiovascular History: Reports: Aneurysm, High Cholesterol, Hypertension Other Cardiovascular History: ascending aortic aneurysm stable measured at 4.1cm. Respiratory History: Reports: COPD, Sleep Apnea, SOB Other Respiratory History: does not have cpap machine of own has one. 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: , Other (See Below) Other OB/BYN History: Hot flashes, vaginal prolapse Musculoskeletal History: Reports: Fibromyalgia, Neck Pain, Chronic Neurological History: Reports: None Psychiatric History: Reports: Depression, Other (See Below) Other Psychiatric History: Insomnia Endocrine/Metabolic History: Reports: Vitamin D Deficiency Hematologic History: Reports: None Immunologic History: Reports: None Oncologic (Cancer) History: Reports: Other (See Below) Other Oncologic History: cancer removed via hysterectomy Dermatologic History: Reports: Other (See Below) Other Dermatologic History: Lipoma - Infectious Disease History Infectious Disease History: Reports: Chicken Pox, Measles - Past Surgical History Head Surgeries/Procedures: Reports: None HEENT Surgical History: Reports: Tonsillectomy Cardiovascular Surgical History: Reports: None Respiratory Surgical History: Reports: None GI Surgical History: Reports: Appendectomy, Cholecystectomy, Colonoscopy, Other (See Below) Other GI Surgeries/Procedures: prolapsed colon Female Surgical History: Reports: Section, Hysterectomy Endocrine Surgical History: Reports: None Neurological Surgical History: Reports: C-Spine Musculoskeletal Surgical History: Reports: Ganglion Cyst, Shoulder Replacement, Shoulder Surgery, Other (See Below) Other Musculoskeletal Surgeries/Procedures:: Hip surgery - took lump of right side many years ago. Left shoulder replacement 3 yrs ago. Right shoulder replacement - 08/07/19 Oncologic Surgical History: Reports: None Dermatological Surgical History: Reports: None - Past Imaging History Past Imaging History: Reports: Cardiac Echo, PFT Social & Family History - Family History Family Medical History: Noncontributory Neurological: Reports: CVA - Tobacco Use Smoking Status *Q: Former Smoker Used Tobacco, but Quit: Yes Month/Year Tobacco Last Used: 1969 - Caffeine Use Caffeine Use: Reports: None - Recreational Drug Use Recreational Drug Use: No H&P Review of Systems - Review of Systems: Review Of Systems: See Below General: Reports: No Symptoms. Denies: Fever, Chills HEENT: Reports: No Symptoms. Denies: Headaches, Sore Throat Pulmonary: Reports: No Symptoms. Denies: Shortness of Breath, Wheezing, Pleuritic Chest Pain, Cough, Sputum Cardiovascular: Reports: No Symptoms. Denies: Chest Pain, Palpitations, Dyspnea on Exertion Gastrointestinal: Reports: No Symptoms. Denies: Abdominal Pain, Constipation, Diarrhea, Nausea, Vomiting Genitourinary: Reports: No Symptoms. Denies: Pain Musculoskeletal: Reports: Leg Pain Skin: Reports: No Symptoms. Denies: Cyanosis Psychiatric: Reports: No Symptoms. Denies: Confusion Neurological: Reports: Numbness, Tingling, Difficulty Walking, Gait Disturbance Hematologic/Lymphatic: Reports: No Symptoms Immunologic: Reports: No Symptoms Exam - Exam Exam: See Below - Vital Signs Vital Signs: Last Vital Signs Temp 97.8 F 05/13/20 11:00 Pulse 70 05/13/20 11:00 Resp 16 05/13/20 11:00 BP 123/75 05/13/20 11:00 Pulse Ox 97 05/13/20 11:00 Weight: 125 lb - Exam Quality Assessment: Supplemental Oxygen, DVT Prophylaxis General: Alert, Oriented. No: Mild Distress HEENT: Conjunctiva Clear, EOMI, Hearing Intact, Mucosa Moist & [place], Nares Patent, Posterior Pharynx Clear, PERRLA Neck: Supple, Trachea Midline Lungs: Clear to Auscultation, Normal Respiratory Effort Cardiovascular: Regular Rate, Regular Rhythm GI/Abdominal Exam: Normal Bowel Sounds, Non-Tender, No Distention (Female) Exam: Deferred Rectal (Female) Exam: Deferred Extremities: Normal Capillary Refill, Leg Pain, Limited Range of Motion, Other (Bandage in place on right leg. Bandage is dry and intact. Cooling pack in place. ) Peripheral Pulses: 2+: Radial (L), Radial (R), Dorsalis Pedis (L), Dorsalis Pedis (R) Skin: Warm, Dry, Intact Neurological: Cranial Nerves Intact (Grossly ) Neuro Extensive - Mental Status: Alert, Oriented x3, Normal Mood/Affect Sepsis Event Note - Evaluation Sepsis Screening Result: No Definite Risk - Focused Exam Vital Signs: Vital Signs Temp Pulse Resp BP Pulse Ox 05/13/20 11:00 97.8 F 70 16 123/75 97 Date Exam was Performed: 05/13/20 Time Exam was Performed: 16:52 Consult PN Assessment/Plan POD#: 0 Procedures: Procedures AIRWAY INHALATION TREATMENT (08/07/19) ASSAY OF ALDOLASE (01/14/16) ASSAY OF CK (CPK) (03/27/16) ASSAY OF MAGNESIUM (01/14/16) ASSAY OF NATRIURETIC PEPTIDE (06/17/15) ASSAY OF PREALBUMIN (04/29/20) ASSAY OF SERUM ALBUMIN (04/29/20) ASSAY OF TROPONIN QUANT (05/27/18) ASSAY THYROID STIM HORMONE (03/06/19) BORDETELLA ANTIBODY (08/03/18) BREAST TOMOSYNTHESIS BI (10/20/19) CARDIOVASCULAR STRESS TEST (11/20/19) CHEST X-RAY 1 VIEW FRONTAL (06/18/15) CHEST X-RAY 2VW FRONTAL&LATL (01/15/16) CO/MEMBANE DIFFUSE CAPACITY (07/25/18) COMP SCREEN MAMMOGRAM ADD-ON (02/04/16) COMPLETE CBC AUTOMATED (09/05/19) COMPLETE CBC W/AUTO DIFF WBC (05/02/20) COMPREHEN METABOLIC PANEL (11/16/19) CREATINE MB FRACTION (01/14/16) CT ANGIOGRAPHY CHEST (05/27/18) DX MAMMO INCL CAD UNI (09/06/18) DXA BONE DENSITY AXIAL (02/05/17) ECG MONIT/REPRT UP TO 48 HRS (01/14/16) ECG MONIT/REPRT UP TO 48 HRS (01/14/16) ELECTROCARDIOGRAM TRACING (07/12/19) EMERGENCY DEPT VISIT (05/27/18) EMERGENCY DEPT VISIT (06/18/15) EVALUATE PT USE OF INHALER (06/18/15) EVALUATION OF WHEEZING (07/25/18) EXTREMITY STUDY (12/23/16) EXTREMITY STUDY (01/14/16) FIBRIN DEGRADATION QUANT (05/27/18) FLUOROSCOPY <1 HR PHYS/QHP (08/07/19) GAIT TRAINING THERAPY (04/06/16) HT MUSCLE IMAGE SPECT MULT (11/20/19) HYDRATE IV INFUSION ADD-ON (01/28/16) HYDRATION IV INFUSION INIT (01/28/16) IIV NO PRSV INCREASED AG IM (08/17/18) LIPID PANEL (11/16/19) LUNG VENTILAT&PERFUS IMAGING (01/15/16) MEASURE BLOOD OXYGEN LEVEL (08/07/19) METABOLIC PANEL TOTAL CA (04/29/20) MR-STAPH DNA AMP PROBE (08/07/19) MRI NECK SPINE W/O DYE (04/26/18) OFFICE/OUTPATIENT VISIT EST (07/12/19) OFFICE/OUTPATIENT VISIT EST (09/14/18) OFFICE/OUTPATIENT VISIT EST (07/26/18) OFFICE/OUTPATIENT VISIT EST (07/21/18) OFFICE/OUTPATIENT VISIT NEW (08/17/18) OT EVAL LOW COMPLEX 30 MIN (08/07/19) OT EVALUATION (04/06/16) PROTHROMBIN TIME (04/29/20) PT EVAL LOW COMPLEX 20 MIN (08/07/19) PT EVALUATION (04/06/16) RECONSTRUCT SHOULDER JOINT (08/07/19) ROUTINE VENIPUNCTURE (11/16/19) SCR MAMMO BI INCL CAD (10/20/19) SELF CARE MNGMENT TRAINING (08/07/19) THER/PROPH/DIAG INJ IV PUSH (05/27/18) THERAPEUTIC EXERCISES (08/07/19) THROMBOPLASTIN TIME PARTIAL (04/29/20) TX/PRO/DX INJ NEW DRUG ADDON (05/27/18) 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/18) ULTRASOUND BREAST LIMITED (09/06/18) UR ALBUMIN SEMIQUANTITATIVE (05/13/15) URINALYSIS AUTO W/O SCOPE (01/18/18) URINALYSIS AUTO W/SCOPE (03/06/19) US COMPL JOINT R-T W/IMG (04/14/17) X-RAY EXAM CHEST 1 VIEW (05/27/18) X-RAY EXAM CHEST 2 VIEWS (04/29/20) X-RAY EXAM NECK SPINE 2-3 VW (06/08/18) X-RAY EXAM OF FOOT (03/05/14) X-RAY EXAM OF KNEE 3 (12/23/16) X-RAY EXAM OF SHOULDER (08/07/19) (1) S/P total knee arthroplasty SNOMED Code(s): 3441988383286, 191652208, 9422698368196 Code(s): Z96.659 - PRESENCE OF UNSPECIFIED ARTIFICIAL KNEE JOINT Priority: High Current Visit: Yes Qualifiers: Laterality: right Qualified Code(s): Z96.651 - Presence of right artificial knee joint (2) Osteoarthritis SNOMED Code(s): 391882444 Code(s): M19.90 - UNSPECIFIED OSTEOARTHRITIS, UNSPECIFIED SITE Priority: High Current Visit: Yes Qualifiers: Osteoarthritis location: knee Osteoarthritis type: primary Laterality: right Qualified Code(s): M17.11 - Unilateral primary osteoarthritis, right knee (3) Ascending aortic aneurysm Priority: Medium Current Visit: No (4) Asthma SNOMED Code(s): 724584771 Code(s): J45.909 - UNSPECIFIED ASTHMA, UNCOMPLICATED Priority: Medium Current Visit: No Qualifiers: Asthma severity: unspecified severity Asthma persistence: unspecified Asthma complication type: unspecified Qualified Code(s): J45.909 - Unspecified asthma, uncomplicated (5) KELTON (obstructive sleep apnea) SNOMED Code(s): 12989412 Code(s): G47.33 - OBSTRUCTIVE SLEEP APNEA (ADULT) (PEDIATRIC) Priority: Medium Current Visit: No (6) CKD (chronic kidney disease) stage 3, GFR 30-59 ml/min SNOMED Code(s): 430147299 Code(s): N18.3 - CHRONIC KIDNEY DISEASE, STAGE 3 (MODERATE) Priority: Medium Current Visit: No (7) COPD (chronic obstructive pulmonary disease) SNOMED Code(s): 96500074 Code(s): J44.9 - CHRONIC OBSTRUCTIVE PULMONARY DISEASE, UNSPECIFIED Priority: Medium Current Visit: No Qualifiers: COPD type: unspecified COPD Qualified Code(s): J44.9 - Chronic obstructive pulmonary disease, unspecified (8) Depression SNOMED Code(s): 18102038 Code(s): F32.9 - MAJOR DEPRESSIVE DISORDER, SINGLE EPISODE, UNSPECIFIED Priority: Low Current Visit: No Qualifiers: Depression Type: other depression Qualified Code(s): F32.89 - Other specified depressive episodes (9) Fibromyalgia SNOMED Code(s): 240149733 Code(s): M79.7 - FIBROMYALGIA Priority: Low Current Visit: No (10) HTN (hypertension) SNOMED Code(s): 36849335 Code(s): I10 - ESSENTIAL (PRIMARY) HYPERTENSION Priority: Medium Current Visit: No Qualifiers: Hypertension type: unspecified Qualified Code(s): I10 - Essential (primary) hypertension (11) HLD (hyperlipidemia) SNOMED Code(s): 74751187 Code(s): E78.5 - HYPERLIPIDEMIA, UNSPECIFIED Priority: Low Current Visit: No Qualifiers: Hyperlipidemia type: unspecified Qualified Code(s): E78.5 - Hyperlipidemia, unspecified (12) Insomnia SNOMED Code(s): 348776682 Code(s): G47.00 - INSOMNIA, UNSPECIFIED Priority: Low Current Visit: No Qualifiers: Insomnia type: unspecified Qualified Code(s): G47.00 - Insomnia, unspecified (13) IBS (irritable bowel syndrome) SNOMED Code(s): 21947849 Code(s): K58.9 - IRRITABLE BOWEL SYNDROME WITHOUT DIARRHEA Priority: Low Current Visit: No Qualifiers: Irritable bowel syndrome type: unspecified Qualified Code(s): K58.9 - Irritable bowel syndrome without diarrhea (14) GERD (gastroesophageal reflux disease) SNOMED Code(s): 221844582 Code(s): K21.9 - GASTRO-ESOPHAGEAL REFLUX DISEASE WITHOUT ESOPHAGITIS Priority: Low Current Visit: No Qualifiers: Esophagitis presence: esophagitis presence not specified Qualified Code(s): K21.9 - Gastro-esophageal reflux disease without esophagitis (15) Vitamin D deficiency SNOMED Code(s): 89965975 Code(s): E55.9 - VITAMIN D DEFICIENCY, UNSPECIFIED Priority: Low Current Visit: No (16) Chronic neck pain SNOMED Code(s): 1787579674876 Code(s): M54.2 - CERVICALGIA; G89.29 - OTHER CHRONIC PAIN Priority: Low Current Visit: No Problem List Initiated/Reviewed/Updated: Yes Plan: I/P: Acute: S/P right total knee arthroplasty - post-operative day 0 -DVT prophylaxis and pain management per primary care team -PT/OT -IS/RT -Monitor oxygen saturation -Titrate oxygen as needed -Home medications reviewed -Vital signs stable -Monitor labs -Pre-operative Hgb was 14.2 -Pre-operative GFR was 54 -Pre-operative calcium was 10.4 -Echo on 11/20/19 showed an EF of 70% with no abnormality noted -Pre-operative 12-lead EKG showed sinus rhythm at 62 BMP with non-specific T- wave abnormalities -Pre-operative Cardiolite stress test was negative Osteoarthritis of right knee -Pain management per primary care team Chronic: Ascending aortic aneurism Asthma KELTON CKD stage 3 COPD Depression Fibromyalgia HTN HLD Insomnia IBS GERD Chronic neck pain Vitamin D deficiency OF NOTE: Patient has history of PSVT noted in her pre-operative chart. Patient denies this. Contacted patients PCP, Lalita Garcia NP and chart review was preformed. It appears this diagnoses stems from a Holter monitor the patient wore in 2015 that showed some short 4 beat runs of SVT. She has had no issues with this since. PCP will remove this form her active problems list. Plan: CM for discharge planning GI prophylaxis Home medications as indicated Other orders as listed above Routine AM labs She is a full code. Her PCP is Lalita Garcia NP Thank you for allowing us to participate in the care of this patient!! Requesting Provider: Dr. Leblanc Date Consult Requested: 05/13/20 Patient History Reviewed: Yes Admission H&P Reviewed: Yes Notified Requestor: Yes
--- NOTE | 2020-05-13 11:56 | PCM.PREANE ---
Preanesthetic Assessment - Anesthesia/Transfusion/Family Hx Anesthesia History: Prior Anesthesia Without Reaction Family History of Anesthesia Reaction: No Transfusion History: No Prior Transfusion(s) Intubation History: Unknown - Review of Systems General: No Symptoms Pulmonary: No Symptoms (former smoker:2000 /History of reactive airway disease COPD, KELTON(no CPAP)/ETOH: 1-2 cocktails per night.) Cardiovascular: No Symptoms (history of unspecified diastolic CHF, HTN, history ascending aorta aneurysm, elevated cholesterol), Palpitations (History of par oxysmal SVT (patient denies)), Dyspnea on Exertion, Edema (left lower leg, none present today.), Lightheadedness Gastrointestinal: No Symptoms (GERD on occasion.), Decreased Appetite, Diarrhea Neurological: No Symptoms (History of fibromyalgia, history of lower back pain none present today.) Other: Reports: None (history of chronic kidney disease (patient denies)), Easy Bruising, Sinus Problem (History of sinusitis, chronic rhinitis), Neck Pain (slight pain noted with extension), Depression - Physical Assessment NPO Status Date: 05/12/20 NPO Status Time: 18:00 Vital Signs: Last Vital Signs Temp 36.6 C 05/13/20 11:00 Pulse 70 05/13/20 11:00 Resp 16 05/13/20 11:00 BP 123/75 05/13/20 11:00 Pulse Ox 97 05/13/20 11:00 Height: 1.57 m Weight: 56.699 kg ASA Class: 3 Mental Status: Alert & Oriented x3 Airway Class: Mallampati = 2 Dentition: Reports: Normal Dentition, Caries Thyro-Mental Finger Breadths: 3 Mouth Opening Finger Breadths: 3 ROM/Head Extension: Other (some neck tenderness noted with extension) Lungs: Clear to Auscultation, Normal Respiratory Effort Cardiovascular: Regular Rate, Regular Rhythm, No Murmurs - Lab Values: Laboratory Last Values COVID-19 PCR Not detected (NOT DETECT) 05/09/20 13:30 MRSA (PCR) Negative 04/19/20 10:05 All labs reviewed and noted and within acceptable ranges to proceed with scheduled procedure. GFR: 54 - Imaging/EKG Impressions: EKG: SR with nonspecific T wave abnormalities, anterior leads rate=62 CXR: Diaphragms are slightly flattened suggestive of emphysematous changes, Scoliosis, evidence of c spine surgery. Cardiolyte stress test: negative - Allergies Allergies/Adverse Reactions: Allergies Allergy/AdvReac Type Severity Reaction Status Date / Time oxycodone AdvReac Hallucinati Verified 08/07/19 10:06 ons - Anesthesia Plan Pre-Op Medication Ordered: Beta Diego Beta Diego: Metoprolol Med Last Dose Date: 05/13/20 Med Last Dose Time: 07:00 - Acknowledgements Anesthesia Type Planned: Spinal (Right adductor canal block under US guidance for post operative pain control requested by Dr. Leblanc.) Pt an Appropriate Candidate for the Planned Anesthesia: Yes Alternatives and Risks of Anesthesia Discussed w Pt/Guardian: Yes Pt/Guardian Understands and Agrees with Anesthesia Plan: Yes PreAnesthesia Questionnaire HEENT History: Reports: Allergic Rhinitis, Otitis Media, Sinusitis, Other (See Below) Other HEENT History: wears eyeglasses Cardiovascular History: Reports: Aneurysm, High Cholesterol, Hypertension Other Cardiovascular History: ascending aortic aneurysm stable measured at 4.1cm. Respiratory History: Reports: COPD, Sleep Apnea, SOB Other Respiratory History: does not have cpap machine of own has one. 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: , Other (See Below) Other OB/BYN History: Hot flashes, vaginal prolapse Musculoskeletal History: Reports: Fibromyalgia, Neck Pain, Chronic Neurological History: Reports: None Psychiatric History: Reports: Depression, Other (See Below) Other Psychiatric History: Insomnia Endocrine/Metabolic History: Reports: Vitamin D Deficiency Hematologic History: Reports: None Immunologic History: Reports: None Oncologic (Cancer) History: Reports: Other (See Below) Other Oncologic History: cancer removed via hysterectomy Dermatologic History: Reports: Other (See Below) Other Dermatologic History: Lipoma - Infectious Disease History Infectious Disease History: Reports: Chicken Pox, Measles - Past Surgical History Head Surgeries/Procedures: Reports: None HEENT Surgical History: Reports: Tonsillectomy Cardiovascular Surgical History: Reports: None Respiratory Surgical History: Reports: None GI Surgical History: Reports: Appendectomy, Cholecystectomy, Colonoscopy, Other (See Below) Other GI Surgeries/Procedures: prolapsed colon Female Surgical History: Reports: Section, Hysterectomy Endocrine Surgical History: Reports: None Neurological Surgical History: Reports: C-Spine Musculoskeletal Surgical History: Reports: Ganglion Cyst, Shoulder Replacement, Shoulder Surgery, Other (See Below) Other Musculoskeletal Surgeries/Procedures:: Hip surgery - took lump of right side many years ago. Left shoulder replacement 3 yrs ago. Right shoulder replacement - 08/07/19 Oncologic Surgical History: Reports: None Dermatological Surgical History: Reports: None - Past Imaging History Past Imaging History: Reports: Cardiac Echo, PFT - SUBSTANCE USE Smoking Status *Q: Former Smoker Recreational Drug Use History: No - HOME MEDS Home Medications: Home Meds Cyanocobalamin (Vitamin B12) [Vitamin B12] 1,000 mcg PO DAILY 08/04/19 [History] Metoprolol Succinate 100 mg PO DAILY 08/04/19 [History] Multivitamin [Daily Multiple Vitamin] 1 tab PO DAILY 08/04/19 [History] Ubidecarenone [Co Q-10] 800 mg PO DAILY 08/04/19 [History] Zolpidem Tartrate [Zolpidem Tartrate ER] 12.5 mg PO BEDTIME PRN 08/04/19 [History] atorvaSTATin [Lipitor] 20 mg PO BEDTIME 08/04/19 [History] Cholecalciferol (Vitamin D3) [Vitamin D3] 5,000 unit PO DAILY 05/10/20 [History] Escitalopram [Lexapro] 10 mg PO DAILY 05/10/20 [History] Fluticasone/Umeclidin/Vilanter [Trelegy Ellipta 100-62.5-25] 1 puff INH DAILY 05/10/20 [History] Losartan Potassium 100 mg PO DAILY 05/10/20 [History] prednisoLONE Acetate [Prednisolone Acetate] 1 drop EYEBOTH ASDIRECTED 05/10/20 [History] proGESTerone [Progesterone In Oil] 1 dose TOP DAILY 05/10/20 [History] - CURRENT (IN HOUSE) MEDS Current Meds: Current Medications Hydrocodone Bitart/Acetaminophen ([place]on[place] 325-5 Mg) 1 - 2 tab PO Q4H PRN PRN Reason: Pain Aspirin (Ecotrin) 325 mg PO BID MIKO Bisacodyl (Dulcolax) 5 mg PO DAILY PRN PRN Reason: Constipation Cyclobenzaprine HCl (Flexeril) 5 mg PO BID PRN PRN Reason: Spasms Docusate Sodium (Colace) 100 mg PO BID MIKO Famotidine (Pepcid) 20 mg PO Q12H [facility] Lactated Ringer's (Ringers, Lactated) 1,000 mls @ 125 mls/hr IV ASDIRECTED MIKO Stop: 05/13/20 23:00 Cefazolin Sodium/Dextrose 2 gm (/ Premix) 50 mls @ 100 mls/hr IV Q8H [facility] Stop: 05/13/20 23:14 Ketorolac Tromethamine (Toradol) 15 mg IVPUSH Q6H PRN PRN Reason: Pain Lidocaine/Sodium Bicarbonate (Buffered Lidocaine 1% In Ns 8.4%) 0.25 ml IDERM ONETIME PRN PRN Reason: Prior to IV Start Stop: 05/13/20 18:00 Magnesium Hydroxide (Milk Of Magnesia) 30 ml PO BID PRN PRN Reason: Constipation Morphine Sulfate (Morphine) 2 mg IVPUSH Q2H PRN PRN Reason: Breakthrough Pain Naloxone HCl (Narcan) 0.1 mg IVPUSH Q5M PRN PRN Reason: Oversedation Ondansetron HCl (Zofran) 4 mg IVPUSH Q6H PRN PRN Reason: Nausea/Vomiting Senna (Senna) 8.6 mg PO BID PRN PRN Reason: Constipation Sodium Chloride (Saline Flush) 10 ml FLUSH ASDIRECTED PRN PRN Reason: Keep Vein Open Stop: 05/13/20 18:00 Discontinued Medications Morphine Sulfate 8 mg/Epinephrine HCl 0.3 mg/Cefuroxime Sodium 750 mg/Ketorolac Tromethamine 30 mg/Sodium Chloride 7.9 ml 0 mg .XX ONETIME ONE Stop: 05/13/20 09:01
[2020-05-13] MEDS ORDERED: Ropivacaine 0.5% 5 MG/ML 30 ML SDV ONE (12:07)
[2020-05-13] MEDS ORDERED: Lidocaine 1% 6 ML ONE (12:09)
[2020-05-13] MEDS ORDERED: ceFAZolin 1 GM Vial ONE ×2 (12:09→12:44)
[2020-05-13] MEDS ORDERED: EPINEPHrine 1 MG/1 ML Amp ONE (12:13)
[2020-05-13] MEDS ORDERED: Bupivacaine 0.75%/D5W 2 ML Amp ONE (12:16)
[2020-05-13] MEDS ORDERED: Vancomycin 1 GM SDV ONE (12:44)
[2020-05-13] MEDS ORDERED: Bupivacaine 0.25% 10 ML SDV ONE (12:44)
[2020-05-13] MEDS ORDERED: Iodine/Sodium Iodide 2% Tincture 30 ML Bottle ONE (12:44)
[2020-05-13] MEDS ORDERED: Propofol 200 MG/20 ML SDV ONE ×2 (13:03→14:09)
[2020-05-13] MEDS ORDERED: Midazolam 1 MG/ML 2 ML SDV ONE (13:04)
[2020-05-13] MEDS ORDERED: ePHEDrine Sulfate/0.9% NaCl/Pf 25 MG/5 ML SYRINGE IV ONE (13:31)
[2020-05-13] MEDS: Morphine Sulfate 8 MG, EPINEPHrine 0.3 MG, Cefuroxime 750 MG, Ketorolac 30 MG, Sodium C... ONE ×10 (14:25→18:58)
--- NOTE | 2020-05-13 15:29 | PCM.POSTAN ---
POST ANESTHESIA ASSESSMENT - MENTAL STATUS Mental Status: Alert, Oriented - VITAL SIGNS Vital Signs: Last Vital Signs Temp 98.2 F 05/13/20 15:00 Pulse 70 05/13/20 11:00 Resp 21 H 05/13/20 15:15 BP 133/71 05/13/20 15:15 Pulse Ox 100 05/13/20 15:21 - RESPIRATORY Respiratory Status: Respiratory Rate WNL, Airway Patent, O2 Saturation Stable, Supplemental Oxygen - CARDIOVASCULAR CV Status: Pulse Rate WNL, Blood Pressure Stable - GASTROINTESTINAL GI Status: No Symptoms - PAIN Pain Score: 0 (post SAB) - POST OP HYDRATION Hydration Status: Adequate & Stable
[2020-05-13] MEDS ORDERED: prednisoLONE Acetate 1% Ophth Susp 5 ML Bottle EYEBOTH SCH (15:30)
--- NOTE | 2020-05-13 15:32 | PCM.PRNOTE ---
- Free Text/Narrative Note: Postoperative regional pain control requested by surgeon. Pre-op Dx: Rt knee osteoarthritis. Post-op Rx: Total Rt knee arthroplasty. Procedure: Rt Adductor canal block with U/S guidance Requesting physician: Dr. Adria Street Risks and benefits discussed with the patient preoperatively including infection, bleeding, incomplete or failed block, possible nerve damage, local anesthetic toxicity. Permit signed. Patient after spinal anesthesia post surgery in PACU, stable , alert and awake. Time out performed. Right mid-thigh was prepped with Chloraprep x 1 and allowed to dry. Under aseptic technique, the right femoral artery and sartorius muscle were identified under ultrasound prior to needle insertion. 4" Stimuplex needle #22 G was inserted under US guidance. Under direct visualization of needle tip the injection of 0.5% Ropivacaine with 1:200k epinephrine, total of 30 mls in divided doses, maintaining negative aspiration was completed without problems. Blood return noticed once and the needle repositioned until aspiration was negative. No local anesthetic toxicity was noted. Patient is awake, stable and tolerated the procedure well. Time: 15:11 - 15:15 Please see attached U/S pictures
[2020-05-13] MEDS ORDERED: fentaNYL 100 MCG/2 ML SDV IVPUSH STA (15:36)
--- NOTE | 2020-05-13 15:58 | CR ---
Right knee: AP and crosstable lateral views of the right knee were obtained. Comparison: Prior right knee exam of 12/23/16. Knee prosthesis is seen. Components are aligned. Soft tissue air is noted from the surgical procedure. Bony structures are intact. Impression: 1. Satisfactory postop radiographic appearance of right knee prosthesis. Diagnostic code #2 This report was dictated in MDT
[2020-05-13] MEDS ORDERED: Ondansetron 4 MG/2 ML SDV IVPUSH ONE (16:10)
[2020-05-13] MEDS ORDERED: HYDROmorphone 0.5 MG/0.5 ML Syringe IVPUSH ONE (16:10)
[2020-05-13] MEDS ORDERED: Meperidine 50 MG/ML Vial IVPUSH ONE (16:10)
[2020-05-13] MEDS ORDERED: Midazolam 1 MG/ML 2 ML SDV IVPUSH ONE (16:33)
[2020-05-13] MEDS: Ketorolac 15 MG/ML SDV IVPUSH PRN (17:29)
[2020-05-13] MEDS: ceFAZolin 2 GM in Premix Bag 1 BAG IV SCH (20:38)
[2020-05-13] MEDS: Cyclobenzaprine 10 MG Tab PO PRN (20:39)
[2020-05-13] MEDS: Docusate Sodium 100 MG Cap PO SCH (20:40)
[2020-05-13] MEDS: Acetaminophen/HYDROcodone 325-5 MG Tab PO PRN (20:41)
[2020-05-13] MEDS ORDERED: Sennosides 8.6 MG Tab PO PRN (21:00)
[2020-05-13] MEDS ORDERED: Famotidine 20 MG Tab PO SCH (21:00)
[2020-05-13] MEDS ORDERED: Simvastatin 20 MG Tab PO SCH (21:00)
[2020-05-14] MEDS: Acetaminophen/HYDROcodone 325-5 MG Tab PO PRN ×5 (00:40→18:07)
[2020-05-14] MEDS: ceFAZolin 2 GM in Premix Bag 1 BAG IV SCH ×2 (05:33→12:43)
[2020-05-14] MEDS: Ketorolac 15 MG/ML SDV IVPUSH PRN (05:34)
--- NOTE | 2020-05-14 07:22 | PCM.CONSN ---
- General Info Date of Service: 05/14/20 Admission Dx/Problem (Free Text): Admission Diagnosis/Problem Admission Diagnosis/Problem Osteoarthritis of knee Functional Status: Reports: Pain Controlled, Tolerating Diet, Ambulating, Urinating, Incentive Spirometry. Denies: New Symptoms - Review of Systems General: Reports: No Symptoms. Denies: Fever, Chills HEENT: Reports: No Symptoms. Denies: Headaches, Sore Throat Pulmonary: Reports: No Symptoms. Denies: Shortness of Breath, Pleuritic Chest Pain, Cough, Sputum, Wheezing Cardiovascular: Reports: No Symptoms. Denies: Chest Pain, Palpitations, Dyspnea on Exertion Gastrointestinal: Reports: No Symptoms. Denies: Abdominal Pain, Constipation, Diarrhea, Nausea, Vomiting Genitourinary: Reports: No Symptoms. Denies: Pain Musculoskeletal: Reports: Leg Pain Skin: Reports: No Symptoms. Denies: Cyanosis Neurological: Reports: Difficulty Walking, Gait Disturbance. Denies: Confusion, Numbness, Tingling Psychiatric: Reports: No Symptoms - Patient Data Vitals - Most Recent: Last Vital Signs Temp 98.2 F 05/14/20 05:32 Pulse 67 05/14/20 05:32 Resp 18 05/14/20 05:32 BP 124/92 H 05/14/20 05:32 Pulse Ox 93 L 05/14/20 05:32 Weight - Most Recent: 129 lb 4.8 oz I&O - Last 24 Hours: Intake & Output 05/13/20 05/14/20 05/14/20 22:59 06:59 14:59 Intake Total 600 550 Balance 600 550 Lab Results Last 24 Hours: Laboratory Results - last 24 hr 05/14/20 05/14/20 Range/Units 05:15 05:15 WBC 7.11 (3.98-10.04) K/mm3 RBC 3.49 L (3.98-5.22) M/mm3 Hgb 11.4 D (11.2-15.7) gm/dl Hct 35.3 (34.1-44.9) % MCV 101.1 H (79.4-94.8) fl MCH 32.7 H (25.6-32.2) pg MCHC 32.3 (32.2-35.5) g/dl RDW Std Deviation 50.1 H (36.4-46.3) fL Plt Count 155 L D (182-369) K/mm3 MPV 10.4 (9.4-12.3) fl Sodium 139 (136-145) mEq/L Potassium 3.7 (3.5-5.1) mEq/L Chloride 105 (98-107) mEq/L Carbon Dioxide 25 (21-32) mEq/L Anion Gap 12.7 (5-15) BUN 17 (7-18) mg/dL Creatinine 1.1 H (0.55-1.02) mg/dL Est Cr Clr Drug Dosing 33.87 mL/min Estimated GFR (MDRD) 48 (>60) mL/min BUN/Creatinine Ratio 15.5 (14-18) Glucose 106 (83-115) mg/dL Calcium 8.7 D (8.5-10.1) mg/dL Total Bilirubin 0.8 (0.2-1.0) mg/dL AST 25 (15-37) U/L ALT 23 (14-59) U/L Alkaline Phosphatase 73 (46-116) U/L Total Protein 5.7 L (6.4-8.2) g/dl Albumin 2.9 L (3.4-5.0) g/dl Globulin 2.8 gm/dL Albumin/Globulin Ratio 1.0 (1-2) Med Orders - Current: Current Medications Hydrocodone Bitart/Acetaminophen (Gibson 325-5 Mg) 1 - 2 tab PO Q4H PRN PRN Reason: Pain Last Admin: 05/14/20 05:34 Dose: 2 tab Documented by: Aspirin (Ecotrin) 325 mg PO BID [facility] Bisacodyl (Dulcolax) 5 mg PO DAILY PRN PRN Reason: Constipation Cholecalciferol (Vitamin D3) 5,000 unit PO DAILY [facility] Citalopram Hydrobromide (Celexa) 20 mg PO DAILY [facility] Cyanocobalamin (Vitamin B12) 1,000 mcg PO DAILY [facility] Cyclobenzaprine HCl (Flexeril) 5 mg PO BID PRN PRN Reason: Spasms Last Admin: 05/13/20 20:39 Dose: 5 mg Documented by: Docusate Sodium (Colace) 100 mg PO BID [facility] Last Admin: 05/13/20 20:40 Dose: 100 mg Documented by: Famotidine (Pepcid) 20 mg PO Q12H [facility] Last Admin: 05/13/20 20:40 Dose: 20 mg Documented by: Cefazolin Sodium/Dextrose 2 gm (/ Premix) 50 mls @ 100 mls/hr IV Q8H [facility] Stop: 05/14/20 13:14 Last Admin: 05/14/20 05:33 Dose: 100 mls/hr Documented by: Magnesium Hydroxide (Milk Of Magnesia) 30 ml PO BID PRN PRN Reason: Constipation Metoprolol Succinate (Toprol Xl) 100 mg PO DAILY [facility] Morphine Sulfate (Morphine) 2 mg IVPUSH Q2H PRN PRN Reason: Breakthrough Pain Naloxone HCl (Narcan) 0.1 mg IVPUSH Q5M PRN PRN Reason: Oversedation Non-Formulary Medication (Fluticasone/Umeclidin/Vilanter [Trelegy Ellipta 100-62.5-25]) 1 puff INH DAILY [facility] Ondansetron HCl (Zofran) 4 mg IVPUSH Q6H PRN PRN Reason: Nausea/Vomiting Prednisolone Acetate (Pred Forte 1% Ophth Susp) ml EYEBOTH ASDIRECTED [facility] Senna (Senna) 8.6 mg PO BID PRN PRN Reason: Constipation Simvastatin (Zocor) 20 mg PO BEDTIME [facility] Last Admin: 05/13/20 20:41 Dose: 20 mg Documented by: Discontinued Medications Bupivacaine HCl (Sensorcaine-Mpf 0.25%) Confirm Administered Dose 30 ml .ROUTE .STK-MED ONE Stop: 05/13/20 12:45 Bupivacaine HCl/Dextrose (Marcaine 0.75% Spinal) Confirm Administered Dose 2 ml .ROUTE .STK-MED ONE Stop: 05/13/20 12:17 Cefazolin Sodium (Ancef) Confirm Administered Dose 2 gm .ROUTE .STK-MED ONE Stop: 05/13/20 12:10 Cefazolin Sodium (Ancef) Confirm Administered Dose 2 gm .ROUTE .STK-MED ONE Stop: 05/13/20 12:45 Morphine Sulfate 8 mg/Epinephrine HCl 0.3 mg/Cefuroxime Sodium 750 mg/Ketorolac Tromethamine 30 mg/Sodium Chloride 7.9 ml 0 mg .XX ONETIME ONE Stop: 05/13/20 09:01 Last Admin: 05/13/20 18:58 Dose: Not Given Documented by: Ephedrine Sulfate (Ephedrine 25 Mg/5 Ml Syringe) Confirm Administered Dose 25 mg IV .STK-MED ONE Stop: 05/13/20 13:32 Epinephrine HCl (Adrenalin) Confirm Administered Dose 1 mg .ROUTE .STK-MED ONE Stop: 05/13/20 12:14 Fentanyl (Sublimaze) 100 mcg IVPUSH STAT STA Stop: 05/13/20 15:37 Last Admin: 05/13/20 15:40 Dose: 100 mcg Documented by: Hydromorphone HCl (Dilaudid) 1 mg IVPUSH ONETIME ONE Stop: 05/13/20 16:11 Last Admin: 05/13/20 16:15 Dose: 0.5 mg Documented by: Lactated Ringer's (Ringers, Lactated) 1,000 mls @ 125 mls/hr IV ASDIRECTED MIKO Stop: 05/13/20 23:00 Lidocaine HCl (Xylocaine-Mpf 1%) Confirm Administered Dose 6 mls @ as directed .ROUTE .STK-MED ONE Stop: 05/13/20 12:10 Iodine (Iodine 2% Mild Tincture) Confirm Administered Dose 30 ml .ROUTE .STK-MED ONE Stop: 05/13/20 12:45 Ketorolac Tromethamine (Toradol) 15 mg IVPUSH Q6H PRN PRN Reason: Pain Last Admin: 05/14/20 05:34 Dose: 15 mg Documented by: Lidocaine/Sodium Bicarbonate (Buffered Lidocaine 1% In Ns 8.4%) 0.25 ml IDERM ONETIME PRN PRN Reason: Prior to IV Start Stop: 05/13/20 18:00 Meperidine HCl (Meperidine) 37.5 mg IVPUSH ONETIME ONE Stop: 05/13/20 16:11 Last Admin: 05/13/20 16:20 Dose: 12.5 mg Documented by: Midazolam HCl (Versed 1 Mg/Ml) Confirm Administered Dose 2 mg .ROUTE .STK-MED ONE Stop: 05/13/20 13:05 Midazolam HCl (Versed 1 Mg/Ml) 0.5 mg IVPUSH ONETIME ONE Stop: 05/13/20 16:34 Last Admin: 05/13/20 16:44 Dose: 0.5 mg Documented by: Miscellaneous Medication (Phenylephrine 1 Mg/10 Ml-Ns) Confirm Administered Dose 1 mg IV .STK-MED ONE Stop: 05/13/20 13:44 Ondansetron HCl (Zofran) 4 mg IVPUSH ONETIME ONE Stop: 05/13/20 16:11 Last Admin: 05/13/20 16:13 Dose: 4 mg Documented by: Propofol (Diprivan 20 Ml) Confirm Administered Dose 200 mg .ROUTE .STK-MED ONE Stop: 05/13/20 13:04 Propofol (Diprivan 20 Ml) Confirm Administered Dose 200 mg .ROUTE .STK-MED ONE Stop: 05/13/20 14:10 Ropivacaine (Naropin 0.5%) Confirm Administered Dose 30 ml .ROUTE .STK-MED ONE Stop: 05/13/20 12:08 Sodium Chloride (Saline Flush) 10 ml FLUSH ASDIRECTED PRN PRN Reason: Keep Vein Open Stop: 05/13/20 18:00 Tranexamic Acid (Cyklokapron) Confirm Administered Dose 1,000 mg .ROUTE .STK-MED ONE Stop: 05/13/20 12:45 Vancomycin HCl (Vancomycin) Confirm Administered Dose 1 gm .ROUTE .STK-MED ONE Stop: 05/13/20 12:45 - Exam Quality Assessment: Supplemental Oxygen (1L), DVT Prophylaxis. No: Urine Catheter General: Alert, Oriented, Cooperative, No Acute Distress HEENT: Pupils Equal, Pupils Reactive, Mucous Membr. Moist/White Water Neck: Supple, Trachea Midline Lungs: Clear to Auscultation, Normal Respiratory Effort Cardiovascular: Regular Rate, Regular Rhythm GI/Abdominal Exam: Normal Bowel Sounds, Soft, Non-Tender, No Distention (Female) Exam: Deferred Back Exam: Normal Inspection, Full Range of Motion Extremities: Normal Capillary Refill, Leg Pain, Limited Range of Motion, Other (Bandage in place on right leg. Cooling pack in place ) Peripheral Pulses: 2+: Radial (L), Radial (R), Dorsalis Pedis (L), Dorsalis Pedis (R) Skin: Warm, Dry, Intact Wound/Incisions: Dressing Dry and Intact Neurological: No New Focal Deficit Psy/Mental Status: Alert, Normal Affect, Normal Mood Sepsis Event Note - Evaluation Sepsis Screening Result: No Definite Risk - Focused Exam Vital Signs: Vital Signs Temp Pulse Resp BP Pulse Ox 05/14/20 05:32 98.2 F 67 18 124/92 H 93 L 05/14/20 00:07 97.3 F 76 20 130/90 96 05/13/20 23:32 75 148/75 H 94 L 05/13/20 23:02 78 112/63 97 05/13/20 22:31 84 132/111 H 95 05/13/20 22:02 75 119/63 96 05/13/20 21:32 78 146/75 H 97 05/13/20 21:01 88 132/83 96 05/13/20 20:02 85 119/79 94 L 05/13/20 19:31 85 115/75 94 L Date Exam was Performed: 05/14/20 Time Exam was Performed: 13:19 Consult PN Assessment/Plan POD#: 1 Procedures: Procedures AIRWAY INHALATION TREATMENT (08/07/19) ASSAY OF ALDOLASE (01/14/16) ASSAY OF CK (CPK) (03/27/16) ASSAY OF MAGNESIUM (01/14/16) ASSAY OF NATRIURETIC PEPTIDE (06/17/15) ASSAY OF PREALBUMIN (04/29/20) ASSAY OF SERUM ALBUMIN (04/29/20) ASSAY OF TROPONIN QUANT (05/27/18) ASSAY THYROID STIM HORMONE (03/06/19) BORDETELLA ANTIBODY (08/03/18) BREAST TOMOSYNTHESIS BI (10/20/19) CARDIOVASCULAR STRESS TEST (11/20/19) CHEST X-RAY 1 VIEW FRONTAL (06/18/15) CHEST X-RAY 2VW FRONTAL&LATL (01/15/16) CO/MEMBANE DIFFUSE CAPACITY (07/25/18) COMP SCREEN MAMMOGRAM ADD-ON (02/04/16) COMPLETE CBC AUTOMATED (09/05/19) COMPLETE CBC W/AUTO DIFF WBC (05/02/20) COMPREHEN METABOLIC PANEL (11/16/19) CREATINE MB FRACTION (01/14/16) CT ANGIOGRAPHY CHEST (05/27/18) DX MAMMO INCL CAD UNI (09/06/18) DXA BONE DENSITY AXIAL (02/05/17) ECG MONIT/REPRT UP TO 48 HRS (01/14/16) ECG MONIT/REPRT UP TO 48 HRS (01/14/16) ELECTROCARDIOGRAM TRACING (07/12/19) EMERGENCY DEPT VISIT (05/27/18) EMERGENCY DEPT VISIT (06/18/15) EVALUATE PT USE OF INHALER (06/18/15) EVALUATION OF WHEEZING (07/25/18) EXTREMITY STUDY (12/23/16) EXTREMITY STUDY (01/14/16) FIBRIN DEGRADATION QUANT (05/27/18) FLUOROSCOPY <1 HR PHYS/QHP (08/07/19) GAIT TRAINING THERAPY (04/06/16) HT MUSCLE IMAGE SPECT MULT (11/20/19) HYDRATE IV INFUSION ADD-ON (01/28/16) HYDRATION IV INFUSION INIT (01/28/16) IIV NO PRSV INCREASED AG IM (08/17/18) LIPID PANEL (11/16/19) LUNG VENTILAT&PERFUS IMAGING (01/15/16) MEASURE BLOOD OXYGEN LEVEL (08/07/19) METABOLIC PANEL TOTAL CA (04/29/20) MR-STAPH DNA AMP PROBE (08/07/19) MRI NECK SPINE W/O DYE (04/26/18) OFFICE/OUTPATIENT VISIT EST (07/12/19) OFFICE/OUTPATIENT VISIT EST (09/14/18) OFFICE/OUTPATIENT VISIT EST (07/26/18) OFFICE/OUTPATIENT VISIT EST (07/21/18) OFFICE/OUTPATIENT VISIT NEW (08/17/18) OT EVAL LOW COMPLEX 30 MIN (08/07/19) OT EVALUATION (04/06/16) PROTHROMBIN TIME (04/29/20) PT EVAL LOW COMPLEX 20 MIN (08/07/19) PT EVALUATION (04/06/16) RECONSTRUCT SHOULDER JOINT (08/07/19) ROUTINE VENIPUNCTURE (11/16/19) SCR MAMMO BI INCL CAD (10/20/19) SELF CARE MNGMENT TRAINING (08/07/19) THER/PROPH/DIAG INJ IV PUSH (05/27/18) THERAPEUTIC EXERCISES (08/07/19) THROMBOPLASTIN TIME PARTIAL (04/29/20) TX/PRO/DX INJ NEW DRUG ADDON (05/27/18) TX/PRO/DX INJ SAME DRUG PLANT ECOLOGIST (05/27/18) ULTRASOUND BREAST LIMITED (09/06/18) UR ALBUMIN SEMIQUANTITATIVE (05/13/15) URINALYSIS AUTO W/O SCOPE (01/18/18) URINALYSIS AUTO W/SCOPE (03/06/19) US COMPL JOINT R-T W/IMG (04/14/17) X-RAY EXAM CHEST 1 VIEW (05/27/18) X-RAY EXAM CHEST 2 VIEWS (04/29/20) X-RAY EXAM NECK SPINE 2-3 VW (06/08/18) X-RAY EXAM OF FOOT (03/05/14) X-RAY EXAM OF KNEE 3 (12/23/16) X-RAY EXAM OF SHOULDER (08/07/19) (1) S/P total knee arthroplasty SNOMED Code(s): 0856002795457, 817764990, 0698795833617 Code(s): Z96.659 - PRESENCE OF UNSPECIFIED ARTIFICIAL KNEE JOINT Priority: High Current Visit: Yes Qualifiers: Laterality: right Qualified Code(s): Z96.651 - Presence of right artificial knee joint (2) Osteoarthritis SNOMED Code(s): 307472710 Code(s): M19.90 - UNSPECIFIED OSTEOARTHRITIS, UNSPECIFIED SITE Priority: High Current Visit: Yes Qualifiers: Osteoarthritis location: knee Osteoarthritis type: primary Laterality: right Qualified Code(s): M17.11 - Unilateral primary osteoarthritis, right knee (3) Ascending aortic aneurysm Priority: Medium Current Visit: No (4) Asthma SNOMED Code(s): 411406028 Code(s): J45.909 - UNSPECIFIED ASTHMA, UNCOMPLICATED Priority: Medium Current Visit: No Qualifiers: Asthma severity: unspecified severity Asthma persistence: unspecified Asthma complication type: unspecified Qualified Code(s): J45.909 - Unspecified asthma, uncomplicated (5) KELTON (obstructive sleep apnea) SNOMED Code(s): 89990889 Code(s): G47.33 - OBSTRUCTIVE SLEEP APNEA (ADULT) (PEDIATRIC) Priority: Medium Current Visit: No (6) CKD (chronic kidney disease) stage 3, GFR 30-59 ml/min SNOMED Code(s): 008259968 Code(s): N18.3 - CHRONIC KIDNEY DISEASE, STAGE 3 (MODERATE) Priority: Medium Current Visit: No (7) COPD (chronic obstructive pulmonary disease) SNOMED Code(s): 84975676 Code(s): J44.9 - CHRONIC OBSTRUCTIVE PULMONARY DISEASE, UNSPECIFIED Priority: Medium Current Visit: No Qualifiers: COPD type: unspecified COPD Qualified Code(s): J44.9 - Chronic obstructive pulmonary disease, unspecified (8) Depression SNOMED Code(s): 72350058 Code(s): F32.9 - MAJOR DEPRESSIVE DISORDER, SINGLE EPISODE, UNSPECIFIED Priority: Low Current Visit: No Qualifiers: Depression Type: other depression Qualified Code(s): F32.89 - Other specified depressive episodes (9) Fibromyalgia SNOMED Code(s): 560893236 Code(s): M79.7 - FIBROMYALGIA Priority: Low Current Visit: No (10) HTN (hypertension) SNOMED Code(s): 74057295 Code(s): I10 - ESSENTIAL (PRIMARY) HYPERTENSION Priority: Medium Current Visit: No Qualifiers: Hypertension type: unspecified Qualified Code(s): I10 - Essential (primary) hypertension (11) HLD (hyperlipidemia) SNOMED Code(s): 97088816 Code(s): E78.5 - HYPERLIPIDEMIA, UNSPECIFIED Priority: Low Current Visit: No Qualifiers: Hyperlipidemia type: unspecified Qualified Code(s): E78.5 - Hyperlipidemia, unspecified (12) Insomnia SNOMED Code(s): 618119864 Code(s): G47.00 - INSOMNIA, UNSPECIFIED Priority: Low Current Visit: No Qualifiers: Insomnia type: unspecified Qualified Code(s): G47.00 - Insomnia, unspecified (13) IBS (irritable bowel syndrome) SNOMED Code(s): 81034362 Code(s): K58.9 - IRRITABLE BOWEL SYNDROME WITHOUT DIARRHEA Priority: Low Current Visit: No Qualifiers: Irritable bowel syndrome type: unspecified Qualified Code(s): K58.9 - Irritable bowel syndrome without diarrhea (14) GERD (gastroesophageal reflux disease) SNOMED Code(s): 456800046 Code(s): K21.9 - GASTRO-ESOPHAGEAL REFLUX DISEASE WITHOUT ESOPHAGITIS Priority: Low Current Visit: No Qualifiers: Esophagitis presence: esophagitis presence not specified Qualified Code(s): K21.9 - Gastro-esophageal reflux disease without esophagitis (15) Vitamin D deficiency SNOMED Code(s): 26432518 Code(s): E55.9 - VITAMIN D DEFICIENCY, UNSPECIFIED Priority: Low Current Visit: No (16) Chronic neck pain SNOMED Code(s): 6642315057223 Code(s): M54.2 - CERVICALGIA; G89.29 - OTHER CHRONIC PAIN Priority: Low Current Visit: No Problem List Initiated/Reviewed/Updated: Yes My Orders Last 24 Hours: My Active Orders 05/13/20 15:30 prednisoLONE acetate [Pred Forte 1% Ophth Susp] DOSE ml EYEBOTH ASDIRECTED 05/13/20 21:00 Simvastatin [Zocor] 20 mg PO BEDTIME 05/14/20 09:00 Cholecalciferol (Vitamin D3) [Vitamin D3] 5,000 unit PO DAILY Citalopram [Celexa] 20 mg PO DAILY Cyanocobalamin (Vitamin B12) [Vitamin B12] 1,000 mcg PO DAILY Fluticasone/Umeclidin/Vilanter [Trelegy Ellipta 100-62.5-25] 1 puff INH DAILY Metoprolol Succinate [Toprol XL] 100 mg PO DAILY Plan: I/P: Acute: S/P right total knee arthroplasty - post-operative day 1 -DVT prophylaxis and pain management per primary care team -PT/OT -IS/RT -Monitor oxygen saturation -Titrate oxygen as needed -Home medications reviewed -Vital signs stable -Monitor labs -Pre-operative Hgb was 14.2; Now 11.4 -Pre-operative GFR was 54; Now 48 -Pre-operative calcium was 10.4; Now 8.7 -Echo on 11/20/19 showed an EF of 70% with no abnormality noted -Pre-operative 12-lead EKG showed sinus rhythm at 62 BMP with non-specific T- wave abnormalities -Pre-operative Cardiolite stress test was negative Osteoarthritis of right knee -Pain management per primary care team Chronic: Ascending aortic aneurism Asthma KELTON CKD stage 3 COPD Depression Fibromyalgia HTN HLD Insomnia IBS GERD Chronic neck pain Vitamin D deficiency OF NOTE: Patient has history of PSVT noted in her pre-operative chart. Patient denies this. Contacted patients PCP, Lalita Garcia NP and chart review was preformed. It appears this diagnoses stems from a Holter monitor the patient wore in 2016 that showed some short 4 beat runs of SVT. She has had no issues with this since. PCP will remove this form her active problems list. Plan: CM for discharge planning GI prophylaxis Home medications as indicated Other orders as listed above Routine AM labs She is a full code. Her PCP is Lalita Garcia NP From a hospitalist standpoint Emma is doing well. She has been up ambulating and working with therapies. Her pain is controlled. Her labs and vital signs remain stable. She has urinated. RT reports she does not qualify for home oxygen but she has been requiring 1L here. She will need to pay out of pocket should she decide to keep it. Prescription has been sent. She is cleared for discharge pending primary team and PT/OT agreement. Thank you for allowing us to participate in the care of this patient!!
--- NOTE | 2020-05-14 08:28 | PCM.SURGPN ---
- General Info Date of Service: 05/14/20 POD#: 1 Functional Status: Reports: Pain Controlled, Tolerating Diet, Ambulating, Urinating, Incentive Spirometry, Other (The pt states she is doing well this morning.) - Patient Data Vitals - Most Recent: Last Vital Signs Temp 98.2 F 05/14/20 05:32 Pulse 67 05/14/20 05:32 Resp 18 05/14/20 05:32 BP 124/92 H 05/14/20 05:32 Pulse Ox 93 L 05/14/20 05:32 Weight - Most Recent: 129 lb 4.8 oz I&O - Last 24 Hours: Intake & Output 05/13/20 05/14/20 05/14/20 22:59 06:59 14:59 Intake Total 600 550 Balance 600 550 Lab Results Last 24 Hrs: Laboratory Results - last 24 hr 05/14/20 05/14/20 Range/Units 05:15 05:15 WBC 7.11 (3.98-10.04) K/mm3 RBC 3.49 L (3.98-5.22) M/mm3 Hgb 11.4 D (11.2-15.7) gm/dl Hct 35.3 (34.1-44.9) % MCV 101.1 H (79.4-94.8) fl MCH 32.7 H (25.6-32.2) pg MCHC 32.3 (32.2-35.5) g/dl RDW Std Deviation 50.1 H (36.4-46.3) fL Plt Count 155 L D (182-369) K/mm3 MPV 10.4 (9.4-12.3) fl Sodium 139 (136-145) mEq/L Potassium 3.7 (3.5-5.1) mEq/L Chloride 105 (98-107) mEq/L Carbon Dioxide 25 (21-32) mEq/L Anion Gap 12.7 (5-15) BUN 17 (7-18) mg/dL Creatinine 1.1 H (0.55-1.02) mg/dL Est Cr Clr Drug Dosing 33.87 mL/min Estimated GFR (MDRD) 48 (>60) mL/min BUN/Creatinine Ratio 15.5 (14-18) Glucose 106 (83-115) mg/dL Calcium 8.7 D (8.5-10.1) mg/dL Total Bilirubin 0.8 (0.2-1.0) mg/dL AST 25 (15-37) U/L ALT 23 (14-59) U/L Alkaline Phosphatase 73 (46-116) U/L Total Protein 5.7 L (6.4-8.2) g/dl Albumin 2.9 L (3.4-5.0) g/dl Globulin 2.8 gm/dL Albumin/Globulin Ratio 1.0 (1-2) Med Orders - Current: Current Medications Hydrocodone Bitart/Acetaminophen (Neversink 325-5 Mg) 1 - 2 tab PO Q4H PRN PRN Reason: Pain Last Admin: 05/14/20 05:34 Dose: 2 tab Documented by: Aspirin (Ecotrin) 325 mg PO BID [facility] Bisacodyl (Dulcolax) 5 mg PO DAILY PRN PRN Reason: Constipation Cholecalciferol (Vitamin D3) 5,000 unit PO DAILY [facility] Citalopram Hydrobromide (Celexa) 20 mg PO DAILY [facility] Cyanocobalamin (Vitamin B12) 1,000 mcg PO DAILY [facility] Cyclobenzaprine HCl (Flexeril) 5 mg PO BID PRN PRN Reason: Spasms Last Admin: 05/13/20 20:39 Dose: 5 mg Documented by: Docusate Sodium (Colace) 100 mg PO BID [facility] Last Admin: 05/13/20 20:40 Dose: 100 mg Documented by: Famotidine (Pepcid) 20 mg PO Q12H [facility] Last Admin: 05/13/20 20:40 Dose: 20 mg Documented by: Cefazolin Sodium/Dextrose 2 gm (/ Premix) 50 mls @ 100 mls/hr IV Q8H [facility] Stop: 05/14/20 13:14 Last Admin: 05/14/20 05:33 Dose: 100 mls/hr Documented by: Magnesium Hydroxide (Milk Of Magnesia) 30 ml PO BID PRN PRN Reason: Constipation Metoprolol Succinate (Toprol Xl) 100 mg PO DAILY [facility] Morphine Sulfate (Morphine) 2 mg IVPUSH Q2H PRN PRN Reason: Breakthrough Pain Naloxone HCl (Narcan) 0.1 mg IVPUSH Q5M PRN PRN Reason: Oversedation Non-Formulary Medication (Fluticasone/Umeclidin/Vilanter [Trelegy Ellipta 100-62.5-25]) 1 puff INH DAILY [facility] Ondansetron HCl (Zofran) 4 mg IVPUSH Q6H PRN PRN Reason: Nausea/Vomiting Prednisolone Acetate (Pred Forte 1% Ophth Susp) ml EYEBOTH ASDIRECTED [facility] Senna (Senna) 8.6 mg PO BID PRN PRN Reason: Constipation Simvastatin (Zocor) 20 mg PO BEDTIME [facility] Last Admin: 05/13/20 20:41 Dose: 20 mg Documented by: Discontinued Medications Bupivacaine HCl (Sensorcaine-Mpf 0.25%) Confirm Administered Dose 30 ml .ROUTE .STK-MED ONE Stop: 05/13/20 12:45 Bupivacaine HCl/Dextrose (Marcaine 0.75% Spinal) Confirm Administered Dose 2 ml .ROUTE .STK-MED ONE Stop: 05/13/20 12:17 Cefazolin Sodium (Ancef) Confirm Administered Dose 2 gm .ROUTE .STK-MED ONE Stop: 05/13/20 12:10 Cefazolin Sodium (Ancef) Confirm Administered Dose 2 gm .ROUTE .STK-MED ONE Stop: 05/13/20 12:45 Morphine Sulfate 8 mg/Epinephrine HCl 0.3 mg/Cefuroxime Sodium 750 mg/Ketorolac Tromethamine 30 mg/Sodium Chloride 7.9 ml 0 mg .XX ONETIME ONE Stop: 05/13/20 09:01 Last Admin: 05/13/20 18:58 Dose: Not Given Documented by: Ephedrine Sulfate (Ephedrine 25 Mg/5 Ml Syringe) Confirm Administered Dose 25 mg IV .STK-MED ONE Stop: 05/13/20 13:32 Epinephrine HCl (Adrenalin) Confirm Administered Dose 1 mg .ROUTE .STK-MED ONE Stop: 05/13/20 12:14 Fentanyl (Sublimaze) 100 mcg IVPUSH STAT STA Stop: 05/13/20 15:37 Last Admin: 05/13/20 15:40 Dose: 100 mcg Documented by: Hydromorphone HCl (Dilaudid) 1 mg IVPUSH ONETIME ONE Stop: 05/13/20 16:11 Last Admin: 05/13/20 16:15 Dose: 0.5 mg Documented by: Lactated Ringer's (Ringers, Lactated) 1,000 mls @ 125 mls/hr IV ASDIRECTED [facility]KO Stop: 05/13/20 23:00 Lidocaine HCl (Xylocaine-Mpf 1%) Confirm Administered Dose 6 mls @ as directed .ROUTE .STK-MED ONE Stop: 05/13/20 12:10 Iodine (Iodine 2% Mild Tincture) Confirm Administered Dose 30 ml .ROUTE .STK-MED ONE Stop: 05/13/20 12:45 Ketorolac Tromethamine (Toradol) 15 mg IVPUSH Q6H PRN PRN Reason: Pain Last Admin: 05/14/20 05:34 Dose: 15 mg Documented by: Lidocaine/Sodium Bicarbonate (Buffered Lidocaine 1% In Ns 8.4%) 0.25 ml IDERM ONETIME PRN PRN Reason: Prior to IV Start Stop: 05/13/20 18:00 Meperidine HCl (Meperidine) 37.5 mg IVPUSH ONETIME ONE Stop: 05/13/20 16:11 Last Admin: 05/13/20 16:20 Dose: 12.5 mg Documented by: Midazolam HCl (Versed 1 Mg/Ml) Confirm Administered Dose 2 mg .ROUTE .STK-MED ONE Stop: 05/13/20 13:05 Midazolam HCl (Versed 1 Mg/Ml) 0.5 mg IVPUSH ONETIME ONE Stop: 05/13/20 16:34 Last Admin: 05/13/20 16:44 Dose: 0.5 mg Documented by: Miscellaneous Medication (Phenylephrine 1 Mg/10 Ml-Ns) Confirm Administered Dose 1 mg IV .STK-MED ONE Stop: 05/13/20 13:44 Ondansetron HCl (Zofran) 4 mg IVPUSH ONETIME ONE Stop: 05/13/20 16:11 Last Admin: 05/13/20 16:13 Dose: 4 mg Documented by: Propofol (Diprivan 20 Ml) Confirm Administered Dose 200 mg .ROUTE .STK-MED ONE Stop: 05/13/20 13:04 Propofol (Diprivan 20 Ml) Confirm Administered Dose 200 mg .ROUTE .STK-MED ONE Stop: 05/13/20 14:10 Ropivacaine (Naropin 0.5%) Confirm Administered Dose 30 ml .ROUTE .STK-MED ONE Stop: 05/13/20 12:08 Sodium Chloride (Saline Flush) 10 ml FLUSH ASDIRECTED PRN PRN Reason: Keep Vein Open Stop: 05/13/20 18:00 Tranexamic Acid (Cyklokapron) Confirm Administered Dose 1,000 mg .ROUTE .STK-MED ONE Stop: 05/13/20 12:45 Vancomycin HCl (Vancomycin) Confirm Administered Dose 1 gm .ROUTE .STK-MED ONE Stop: 05/13/20 12:45 - Exam Wound/Incisions: Dressing Dry and Intact General: Alert, Cooperative, No Acute Distress Lungs: Normal Respiratory Effort Extremities: Other (NVS intact for RLE. Angelina's negative.) Sepsis Event Note - Evaluation Sepsis Screening Result: No Definite Risk - Focused Exam Vital Signs: Vital Signs Temp Pulse Resp BP Pulse Ox 05/14/20 05:32 98.2 F 67 18 124/92 H 93 L 05/14/20 00:07 97.3 F 76 20 130/90 96 05/13/20 23:32 75 148/75 H 94 L 05/13/20 23:02 78 112/63 97 05/13/20 22:31 84 132/111 H 95 05/13/20 22:02 75 119/63 96 05/13/20 21:32 78 146/75 H 97 05/13/20 21:01 88 132/83 96 Date Exam was Performed: 05/14/20 Time Exam was Performed: 08:26 - Problem List Review Problem List Initiated/Reviewed/Updated: Yes - My Orders Last 24 Hours: Active Orders 24 hr Category Date Time Status Communication Order [RC] ASDIRECTED Care 05/13/20 13:57 Active Cooling Warming Measures [RC] ASDIRECTED Care 05/13/20 13:57 Active Oxygen Therapy [RC] ASDIRECTED Care 05/13/20 13:57 Active Pulse Oximetry [RC] ASDIRECTED Care 05/13/20 13:57 Active Ready for Discharge [RC] PER UNIT ROUTINE Care 05/14/20 08:26 Ordered Regular Diet [DIET] Diet 05/13/20 Lunch Active Aspirin [Ecotrin] Med 05/14/20 09:00 Active 325 mg PO BID Cholecalciferol (Vitamin D3) [Vitamin D3] Med 05/14/20 09:00 Active 5,000 unit PO DAILY Citalopram [Celexa] Med 05/14/20 09:00 Active 20 mg PO DAILY Cyanocobalamin (Vitamin B12) [Vitamin B12] Med 05/14/20 09:00 Active 1,000 mcg PO DAILY Docusate Sodium [Colace] Med 05/13/20 21:00 Active 100 mg PO BID Famotidine [Pepcid] Med 05/13/20 21:00 Active 20 mg PO Q12H Fluticasone/Umeclidin/Vilanter [Trelegy Ellipta 100-62. Med 05/14/20 09:00 Pending 5-25] 1 puff INH DAILY Metoprolol Succinate [Toprol XL] Med 05/14/20 09:00 Active 100 mg PO DAILY Sennosides [Senna] Med 05/13/20 21:00 Active 8.6 mg PO BID PRN Simvastatin [Zocor] Med 05/13/20 21:00 Active 20 mg PO BEDTIME bisacodyL [Dulcolax] Med 05/14/20 09:00 Active 5 mg PO DAILY PRN ceFAZolin [Ancef] 2 gm Med 05/13/20 20:45 Active Premix Bag 1 bag IV Q8H prednisoLONE acetate [Pred Forte 1% Ophth Susp] Med 05/13/20 15:30 Pending DOSE ml EYEBOTH ASDIRECTED Medication Orders Hydrocodone Bitart/Acetaminophen (Neversink 325-5 Mg) 1 - 2 tab PO Q4H PRN PRN Reason: Pain Last Admin: 05/14/20 05:34 Dose: 2 tab Documented by: Admin: 05/14/20 00:40 Dose: 2 tab Documented by: Admin: 05/13/20 20:41 Dose: 2 tab Documented by: MIMI Aspirin (Ecotrin) 325 mg PO BID [facility] Bisacodyl (Dulcolax) 5 mg PO DAILY PRN PRN Reason: Constipation Cholecalciferol (Vitamin D3) 5,000 unit PO DAILY [facility] Citalopram Hydrobromide (Celexa) 20 mg PO DAILY [facility] Cyanocobalamin (Vitamin B12) 1,000 mcg PO DAILY [facility] Cyclobenzaprine HCl (Flexeril) 5 mg PO BID PRN PRN Reason: Spasms Last Admin: 05/13/20 20:39 Dose: 5 mg Documented by: MIMI Docusate Sodium (Colace) 100 mg PO BID [facility] Last Admin: 05/13/20 20:40 Dose: 100 mg Documented by: MIMI Famotidine (Pepcid) 20 mg PO Q12H [facility] Last Admin: 05/13/20 20:40 Dose: 20 mg Documented by: MIMI Cefazolin Sodium/Dextrose 2 gm (/ Premix) 50 mls @ 100 mls/hr IV Q8H [facility] Stop: 05/14/20 13:14 Last Admin: 05/14/20 05:33 Dose: 100 mls/hr Documented by: Infusion: 05/13/20 21:08 Dose: 100 mls/hr Documented by: Admin: 05/13/20 20:38 Dose: 100 mls/hr Documented by: MIMI Magnesium Hydroxide (Milk Of Magnesia) 30 ml PO BID PRN PRN Reason: Constipation Metoprolol Succinate (Toprol Xl) 100 mg PO DAILY [facility] Morphine Sulfate (Morphine) 2 mg IVPUSH Q2H PRN PRN Reason: Breakthrough Pain Naloxone HCl (Narcan) 0.1 mg IVPUSH Q5M PRN PRN Reason: Oversedation Non-Formulary Medication (Fluticasone/Umeclidin/Vilanter [Trelegy Ellipta 100-62.5-25]) 1 puff INH DAILY [facility] Ondansetron HCl (Zofran) 4 mg IVPUSH Q6H PRN PRN Reason: Nausea/Vomiting Prednisolone Acetate (Pred Forte 1% Ophth Susp) ml EYEBOTH ASDIRECTED [facility] Senna (Senna) 8.6 mg PO BID PRN PRN Reason: Constipation Simvastatin (Zocor) 20 mg PO BEDTIME [facility] Last Admin: 05/13/20 20:41 Dose: 20 mg Documented by: MIMI - Assessment Assessment (Free Text/Narrative):: POD#1 - right TKA - Plan Plan (Free Text/Narrative):: 1. Hgb 11.4. 2. Discharge to home today. 3. Outpatient therapy. 4. 325mg ASA PO BID, frequent mobility, TEDs. The pt's case was discussed with Dr. Leblanc.
[2020-05-14] MEDS: Docusate Sodium 100 MG Cap PO SCH (08:59)
[2020-05-14] MEDS ORDERED: Citalopram 20 MG Tab PO SCH (09:00)
[2020-05-14] MEDS ORDERED: Cholecalciferol (Vitamin D3) 5,000 UNIT Tab PO SCH (09:00)
[2020-05-14] MEDS ORDERED: Cyanocobalamin (Vitamin B12) 1,000 MCG Tab PO SCH (09:00)
[2020-05-14] MEDS ORDERED: Bisacodyl 5 MG Tab PO PRN (09:00)
[2020-05-14] MEDS ORDERED: Aspirin 325 MG Tab.EC PO SCH (09:00)
[2020-05-14] MEDS ORDERED: Metoprolol Succinate 50 MG Tab.ER PO SCH (09:00)
[2020-05-14] MEDS ORDERED: Non-Formulary Medication 1 Each (Fluticasone/Umeclidin/Vilanter [Trelegy Ellipta 100-62.5- INH SCH (09:00)
--- NOTE | 2020-05-14 10:58 | PCM48HPAN ---
Post Anesthesia Note - EVALUATION WITHIN 48HRS OF ANESTHETIC Vital Signs in Normal Range: Yes Patient Participated in Evaluation: Yes Respiratory Function Stable: Yes Airway Patent: Yes Cardiovascular Function Stable: Yes Hydration Status Stable: Yes Pain Control Satisfactory: Yes Nausea and Vomiting Control Satisfactory: Yes Mental Status Recovered: Yes Vital Signs: Last Vital Signs Temp 36.4 C 05/14/20 08:03 Pulse 80 05/14/20 08:53 Resp 14 05/14/20 08:03 BP 104/64 05/14/20 08:52 Pulse Ox 94 L 05/14/20 08:53 - COMMENTS/OBSERVATIONS Free Text/Narrative:: no anesthesia complications noted
[2020-05-14] MEDS ORDERED: Ondansetron 4 MG Tab.DIS PO ONE (15:50)
[2020-05-14] MEDS ORDERED: Promethazine 25 MG/ML SDV IM ONE (16:15)
[2020-05-14] MEDS: Cyclobenzaprine 10 MG Tab PO PRN (18:07)
[2020-05-14] MEDS ORDERED: Famotidine 20 MG Tab PO SCH (21:00)
[2020-05-14 21:05] VITALS: BP 126/84; PULSE 84
--- NOTE | 2020-05-15 09:44 | PCM.DCSUM1 ---
Discharge Summary - Hospital Course Brief History: Emma is a 75 yo female who underwent right TKA with Dr. Leblanc on 05-13-2020. The procedure was completed under spinal anesthesia with sedation. The pt tolerated the procedure well and was admitted to the Medical-Surgical Unit. Medical management was provided by the Hospitalist service. The pt's Hospital course was remarkable for post-op nausea and vomiting which was evaluated and treated by the Hospitalist service. The pt's Hgb on POD#1 was 11.4. On POD#1, 325mg ASA BID was initiated for VTE prophylaxis. SCDs and TEDs were also ordered. A Mepilex dressing was placed at the incision site at the time of surgery and remained clean and dry. The pt participated in P.T. and O.T. and progressed well. The pt was allowed to WBAT and used a FWW for mobility. On POD#1, the pt was deemed appropriate to discharge to home with her . - Discharge Data Discharge Date: 05/14/20 Discharge Disposition: Home, Self-Care 01 Condition: Good - Referral to Home Health Primary Care Physician: Lalita Garcia NP - Patient Summary/Data Consults: Consultations 05/13/20 06:44 OT Evaluation and Treatment [CONS] Routine PT Evaluation and Treatment [CONS] Routine 05/13/20 06:45 Consult to Physician [CONS] Routine - Patient Instructions Diet: Usual Diet as Tolerated Activity: Apply Ice, As Tolerated, Elevate Extremity, Full Weight Bearing Driving: Do Not Drive Showering/Bathing: May Shower Wound/Incision Care: Keep Operative Site/Wound Site Clean and Dry, Do NOT Change Dressing Notify Provider of: Fever, Increased Pain, Swelling and Redness, Drainage, Nausea and/or Vomiting Other/Special Instructions: Please get up and moving around EVERY HOUR while awake. This helps to prevent blood clots. Please use your walker and have help with mobility as needed. Take a short walk in your home every hour while awake. Please take 325mg aspirin TWICE daily. The aspirin is being used for blood clot prevention and not for pain management so please do not miss a dose of the medication. You could use a medication like Pepcid or Tagamet and a medication like Prilosec or Nexium to protect your stomach while you are using the aspirin. At home, please complete the exercises that you learned during the Hospital stay. Schedule for physical therapy. Use the pain medication as needed. The medication may cause drowsiness and constipation. Contact your primary care provider for instructions if you are constipated. You may use a stool softener like docusate sodium or Colace 100mg twice daily and/or a laxative like Miralax daily for constipation. Increase your water and fiber intake while you are using the pain medication. Discontinue use of the pain medication as soon as able. Please do not use other medications that may cause drowsiness (other pain medications, anxiety pills, cold medications, sleeping pills, etc) while using the prescription pain medication. Do not use alcohol while using the pain medication. You may use acetaminophen or Tylenol for pain management, however, please ensure you are not using over 4000 mg or 4 grams of acetaminophen per day from all sources. Your pain medication has 325mg of acetaminophen per tablet. At this time, please do not use ibuprofen (Motrin, Advil) or naproxen (Aleve) for pain management as you are using the aspirin. When the aspirin course is completed in 4 to 6 weeks, you could use ibuprofen or naproxen for pain management (if this is allowed by your primary care provider). Wear the CARLOS hose during the day and you may remove these at night. Elevate the limb to decrease swelling. Place ice to the area often. Place a towel between your skin and the blue pad. Use the incentive spirometer often. Take deep breaths throughout the day. Please keep the dressing in place until follow-up. Notify the Clinic if the dressing becomes saturated. Increase your protein intake while you are healing. If you have diabetes, please closely monitor your blood sugars and notify your primary care provider with abnormal values. Elevated blood sugars increases the risk of infection. Call the Clinic with questions or concerns - [phone] and leave a message for the nurse. - Discharge Plan *PRESCRIPTION DRUG MONITORING PROGRAM REVIEWED*: No *COPY OF PRESCRIPTION DRUG MONITORING REPORT IN PATIENT [place]: No Prescriptions/Med Rec: Aspirin [Ecotrin EC] 325 mg PO BID #84 tab.ec Cyclobenzaprine [Flexeril] 5 mg PO BID PRN #10 tablet PRN Reason: Spasms Acetaminophen/HYDROcodone [[place] 325-5 MG] 1 - 2 tab PO Q4H PRN #60 tablet PRN Reason: Pain Ondansetron [Zofran] 4 mg PO Q6H PRN #12 tab PRN Reason: Nausea Home Medications: Home Meds Cyanocobalamin (Vitamin B12) [Vitamin B12] 1,000 mcg PO DAILY 08/04/19 [History] Metoprolol Succinate 100 mg PO DAILY 08/04/19 [History] Multivitamin [Daily Multiple Vitamin] 1 tab PO DAILY 08/04/19 [History] Ubidecarenone [Co Q-10] 800 mg PO DAILY 08/04/19 [History] Zolpidem Tartrate [Zolpidem Tartrate ER] 12.5 mg PO BEDTIME PRN 08/04/19 [History] atorvaSTATin [Lipitor] 20 mg PO BEDTIME 08/04/19 [History] Cholecalciferol (Vitamin D3) [Vitamin D3] 5,000 unit PO DAILY 05/10/20 [History] Escitalopram [Lexapro] 10 mg PO DAILY 05/10/20 [History] Fluticasone/Umeclidin/Vilanter [Trelegy Ellipta 100-62.5-25] 1 puff INH DAILY 05/10/20 [History] Losartan Potassium 100 mg PO DAILY 05/10/20 [History] prednisoLONE Acetate [Prednisolone Acetate] 1 drop EYEBOTH ASDIRECTED 05/10/20 [History] proGESTerone [Progesterone In Oil] 1 dose TOP DAILY 05/10/20 [History] Acetaminophen/HYDROcodone [[place] 325-5 MG] 1 - 2 tab PO Q4H PRN #60 tablet 05/14/20 [Rx] Aspirin [Ecotrin EC] 325 mg PO BID #84 tab.ec 05/14/20 [Rx] Cyclobenzaprine [Flexeril] 5 mg PO BID PRN #10 tablet 05/14/20 [Rx] Docusate Sodium [Colace] 100 mg PO BID cap 05/14/20 [Rx] Famotidine [Pepcid] 20 mg PO Q12H tablet 05/14/20 [Rx] Magnesium Hydroxide [Milk of Magnesia] 30 ml PO BID PRN cup 05/14/20 [Rx] Ondansetron [Zofran] 4 mg PO Q6H PRN #12 tab 05/14/20 [Rx] Sennosides [Senna] 8.6 mg PO BID PRN tablet 05/14/20 [Rx] bisacodyL [Dulcolax] 5 mg PO DAILY PRN tablet 05/14/20 [Rx] Referrals: Dolores Murillo PA-C [Physician Commercial Portfolio Manager] - (Please follow up with Dolores Murillo PA-C on the following dates- May 21 at 2:45pm, May 28 at 3pm, and June 25 at 10am.) - Discharge Summary/Plan Comment DC Time >30 min.: No - Patient Data Vitals - Most Recent: Last Vital Signs Temp 98.2 F 05/14/20 16:17 Pulse 84 05/14/20 16:17 Resp 18 05/14/20 16:17 BP 126/84 05/14/20 16:17 Pulse Ox 94 L 05/14/20 16:17 Weight - Most Recent: 129 lb 4.8 oz I&O - Last 24 hours: Intake & Output 05/14/20 05/15/20 05/15/20 22:59 06:59 14:59 Intake Total 1600 Output Total 300 Balance 1300 Med Orders - Current: Current Medications Discontinued Medications Hydrocodone Bitart/Acetaminophen ([place] 325-5 Mg) 1 - 2 tab PO Q4H PRN PRN Reason: Pain Last Admin: 05/14/20 18:07 Dose: 1 tab Documented by: Aspirin (Ecotrin) 325 mg PO BID [facility] Last Admin: 05/14/20 08:59 Dose: 325 mg Documented by: Bisacodyl (Dulcolax) 5 mg PO DAILY PRN PRN Reason: Constipation Bupivacaine HCl (Sensorcaine-Mpf 0.25%) Confirm Administered Dose 30 ml .ROUTE .STK-MED ONE Stop: 05/13/20 12:45 Last Admin: 05/13/20 14:25 Dose: 30 ml Documented by: Bupivacaine HCl/Dextrose (Marcaine 0.75% Spinal) Confirm Administered Dose 2 ml .ROUTE .STK-MED ONE Stop: 05/13/20 12:17 Cefazolin Sodium (Ancef) Confirm Administered Dose 2 gm .ROUTE .STK-MED ONE Stop: 05/13/20 12:10 Last Admin: 05/13/20 14:20 Dose: 2 gm Documented by: Cefazolin Sodium (Ancef) Confirm Administered Dose 2 gm .ROUTE .STK-MED ONE Stop: 05/13/20 12:45 Cholecalciferol (Vitamin D3) 5,000 unit PO DAILY [facility] Last Admin: 05/14/20 08:59 Dose: 5,000 unit Documented by: Citalopram Hydrobromide (Celexa) 20 mg PO DAILY [facility] Last Admin: 05/14/20 08:59 Dose: 20 mg Documented by: Morphine Sulfate 8 mg/Epinephrine HCl 0.3 mg/Cefuroxime Sodium 750 mg/Ketorolac Tromethamine 30 mg/Sodium Chloride 7.9 ml 0 mg .XX ONETIME ONE Stop: 05/13/20 09:01 Last Admin: 05/13/20 18:58 Dose: Not Given Documented by: Cyanocobalamin (Vitamin B12) 1,000 mcg PO DAILY [facility] Last Admin: 05/14/20 08:59 Dose: 1,000 mcg Documented by: Cyclobenzaprine HCl (Flexeril) 5 mg PO BID PRN PRN Reason: Spasms Last Admin: 05/14/20 18:07 Dose: 5 mg Documented by: Docusate Sodium (Colace) 100 mg PO BID [facility] Last Admin: 05/14/20 08:59 Dose: 100 mg Documented by: Ephedrine Sulfate (Ephedrine 25 Mg/5 Ml Syringe) Confirm Administered Dose 25 mg IV .STK-MED ONE Stop: 05/13/20 13:32 Epinephrine HCl (Adrenalin) Confirm Administered Dose 1 mg .ROUTE .STK-MED ONE Stop: 05/13/20 12:14 Famotidine (Pepcid) 20 mg PO Q12H [facility] Last Admin: 05/13/20 20:40 Dose: 20 mg Documented by: Famotidine (Pepcid) 20 mg PO BEDTIME [facility] Fentanyl (Sublimaze) 100 mcg IVPUSH STAT STA Stop: 05/13/20 15:37 Last Admin: 05/13/20 15:40 Dose: 100 mcg Documented by: Hydromorphone HCl (Dilaudid) 1 mg IVPUSH ONETIME ONE Stop: 05/13/20 16:11 Last Admin: 05/13/20 16:15 Dose: 0.5 mg Documented by: Lactated Ringer's (Ringers, Lactated) 1,000 mls @ 125 mls/hr IV ASDIRECTED MIKO Stop: 05/13/20 23:00 Cefazolin Sodium/Dextrose 2 gm (/ Premix) 50 mls @ 100 mls/hr IV Q8H [facility] Stop: 05/14/20 13:14 Last Admin: 05/14/20 12:43 Dose: 100 mls/hr Documented by: Lidocaine HCl (Xylocaine-Mpf 1%) Confirm Administered Dose 6 mls @ as directed .ROUTE .STK-MED ONE Stop: 05/13/20 12:10 Iodine (Iodine 2% Mild Tincture) Confirm Administered Dose 30 ml .ROUTE .STK-MED ONE Stop: 05/13/20 12:45 Last Admin: 05/13/20 14:02 Dose: 18 ml Documented by: Ketorolac Tromethamine (Toradol) 15 mg IVPUSH Q6H PRN PRN Reason: Pain Last Admin: 05/14/20 05:34 Dose: 15 mg Documented by: Lidocaine/Sodium Bicarbonate (Buffered Lidocaine 1% In Ns 8.4%) 0.25 ml IDERM O NETIME PRN PRN Reason: Prior to IV Start Stop: 05/13/20 18:00 Magnesium Hydroxide (Milk Of Magnesia) 30 ml PO BID PRN PRN Reason: Constipation Meperidine HCl (Meperidine) 37.5 mg IVPUSH ONETIME ONE Stop: 05/13/20 16:11 Last Admin: 05/13/20 16:20 Dose: 12.5 mg Documented by: Metoprolol Succinate (Toprol Xl) 100 mg PO DAILY [facility] Last Admin: 05/14/20 09:47 Dose: Not Given Documented by: Midazolam HCl (Versed 1 Mg/Ml) Confirm Administered Dose 2 mg .ROUTE .STK-MED ONE Stop: 05/13/20 13:05 Midazolam HCl (Versed 1 Mg/Ml) 0.5 mg IVPUSH ONETIME ONE Stop: 05/13/20 16:34 Last Admin: 05/13/20 16:44 Dose: 0.5 mg Documented by: Miscellaneous Medication (Phenylephrine 1 Mg/10 Ml-Ns) Confirm Administered Dose 1 mg IV .STK-MED ONE Stop: 05/13/20 13:44 Morphine Sulfate (Morphine) 2 mg IVPUSH Q2H PRN PRN Reason: Breakthrough Pain Naloxone HCl (Narcan) 0.1 mg IVPUSH Q5M PRN PRN Reason: Oversedation Non-Formulary Medication (Fluticasone/Umeclidin/Vilanter [Trelegy Ellipta 100-62.5-25]) 1 puff INH DAILY [facility] Ondansetron HCl (Zofran) 4 mg IVPUSH Q6H PRN PRN Reason: Nausea/Vomiting Last Admin: 05/14/20 15:41 Dose: 4 mg Documented by: Ondansetron HCl (Zofran) 4 mg IVPUSH ONETIME ONE Stop: 05/13/20 16:11 Last Admin: 05/13/20 16:13 Dose: 4 mg Documented by: Ondansetron HCl (Zofran Odt) 4 mg PO ONETIME ONE Stop: 05/14/20 15:51 Last Admin: 05/14/20 15:51 Dose: 4 mg Documented by: Prednisolone Acetate (Pred Forte 1% Ophth Susp) ml EYEBOTH ASDIRECTED [facility] Promethazine HCl (Phenergan) 25 mg IM ONETIME ONE Stop: 05/14/20 16:16 Last Admin: 05/14/20 16:43 Dose: 25 mg Documented by: Propofol (Diprivan 20 Ml) Confirm Administered Dose 200 mg .ROUTE .STK-MED ONE Stop: 05/13/20 13:04 Propofol (Diprivan 20 Ml) Confirm Administered Dose 200 mg .ROUTE .STK-MED ONE Stop: 05/13/20 14:10 Ropivacaine (Naropin 0.5%) Confirm Administered Dose 30 ml .ROUTE .STK-MED ONE Stop: 05/13/20 12:08 Senna (Senna) 8.6 mg PO BID PRN PRN Reason: Constipation Simvastatin (Zocor) 20 mg PO BEDTIME [facility] Last Admin: 05/13/20 20:41 Dose: 20 mg Documented by: Sodium Chloride (Saline Flush) 10 ml FLUSH ASDIRECTED PRN PRN Reason: Keep Vein Open Stop: 05/13/20 18:00 Tranexamic Acid (Cyklokapron) Confirm Administered Dose 1,000 mg .ROUTE .STK-MED ONE Stop: 05/13/20 12:45 Last Admin: 05/13/20 14:32 Dose: 1,000 mg Documented by: Vancomycin HCl (Vancomycin) Confirm Administered Dose 1 gm .ROUTE .STK-MED ONE Stop: 05/13/20 12:45 Last Admin: 05/13/20 14:28 Dose: 1 gm Documented by:
--- NOTE | 2020-05-20 09:57 | PCM.OPNOTE ---
- General Post-Op/Procedure Note Date of Surgery/Procedure: 05/13/20 Operative Procedure(s): right total knee arthroplasty Pre Op Diagnosis: right knee osteoarthrosis Post-Op Diagnosis: Same Anesthesia Technique: Local, MAC, Spinal Primary Surgeon: Adria Leblanc Anesthesia Provider: Steven Young Senior Informatica Developer: Dolores Murillo Senior Informatica Developer: Cayla Childers in mLs: 5 Complications: None Condition: Good Free Text/Narrative:: 3/3 cemented 9mm TS 29x9
--- NOTE | 2020-05-20 10:31 | OR ---
DATE OF OPERATION: 05/13/2020 SURGEON: Adria Leblanc MD OPERATION PERFORMED: Right total knee arthroplasty. PREOPERATIVE DIAGNOSIS: Right knee osteoarthrosis. POSTOPERATIVE DIAGNOSIS: Right knee osteoarthrosis. ANESTHESIA: Local MAC with spinal. ANESTHESIA PROVIDER: Arpita Peng. NEURODIAGNOSTIC TECHNOLOGIST: Dolores Murillo PA-C, and Cayla Childers LPN. ESTIMATED BLOOD LOSS: 5 mL. COMPLICATIONS: None. CONDITION: Stable. IMPLANTS: 1. Carol size 3 cemented PS femur. 2. Carol size 3 cemented universal tibial base plate. 3. Carol size 3 9 mm PS polyethylene insert. 4. Carol size 29 x 9 mm cemented asymmetric patella. DESCRIPTION OF PROCEDURE: The patient was identified in the preop holding area. Proper site was marked and identified by the surgeon. The patient was taken back to the operating theater. After adequate anesthesia, the patient's right lower extremity had a nonsterile tourniquet applied and it was sterilely prepped and draped in the usual sterile fashion. OR time-out was performed. The patient received 2 g IV Ancef. At this time, the right lower extremity was exsanguinated. Tourniquet was insufflated to 300 mmHg. Standard medial parapatellar incision was made. Medial parapatellar arthrotomy was created. Deep fibers of the MCL were raised and anterior fat pad was resected. At this time, attention was turned to the patella. Patella measured an 18, it was resected to a 13 for a 29 x 9 mm patella. Drill holes were then drilled and found to be in adequate position. The drill was then drilled in the distal femur and the intramedullary distal femoral cutting guide was then placed. 10 mm was resected off the distal femur and was found to be an adequate resection. Sizing guide was placed. It was found to be a size 3 cemented PS femur that was shown on the implant record at the beginning of this dictation. The drill holes were drilled for the epicondylar axis using Whitesides line and epicondyles as reference. At this time, the 4-in-1 cutting block was placed. An anterior posterior and anterior and posterior chamfer cuts were then completed. Attention was turned to the tibia. The posterior medial lateral retractors were placed. The extramedullary tibial guide was placed. It was placed in the old footprint of the ACL. It was aligned with the center of the ankle and 0 degrees of slope, 9 mm was then resected off the unaffected side. There was found to be an acceptable reduction. At this time, posterior osteophytes were removed along with medial and lateral meniscus. A trial implant was placed with a correct sized tibia that was mentioned at the beginning of the dictation. A [place] size 3 9 mm PS polyethylene insert was then placed. The patient's knee was brought through range of motion. The patella was tracking centrally and was stable to varus and valgus stress. Alignment was found to be roughly at 0 degrees. The tibia was stamped and drilled in proper rotation. The universal tibial base plate was impacted in place. Next, the [place] size 3 cemented PS femur impacted into place and the [place] size 3 9 mm PS polyethylene insert was placed. The patient's knee was brought into full extension. The patella was then press-fit in place at this time. Tourniquet was deflated. One liter dilute Betadine solution was irrigated through the knee along with 3 L of pulse lavage irrigation with Ancef. Periarticular injection was then completed. The patient's knee was brought through a range of motion. Knee was found to be stable to varus valgus stress, the patella was tracking centrally with full range of motion. At this time, a #2 barbed suture was used for closure of the medial parapatellar arthrotomy. Topical tranexamic acid was placed. 2-0 Vicryl was used subcutaneously, Prineo was used for the skin. The patient tolerated the procedure well and was sent to the PACU in stable condition. DUNCAN /[id number] АННА
== END 2020-05-14 18:10 | disposition home or self-care (01) | DRG 470 ==
LOC: EDSTATUS 05-13 07:30 → JD.MS 05-13 10:59
PROVIDERS: ADMIT Orthopaedic Surgery; ATTEND Orthopaedic Surgery
PROC: 0SRC0J9 Replacement of Right Knee Joint with Synthetic Substitute, Cemented, Open Approach (ICD-10-PCS; principal; 2020-05-13)
DX: M17.11 Unilateral primary osteoarthritis, right knee (principal); I50.32 Chronic diastolic (congestive) heart failure; H61.21 Impacted cerumen, right ear; I71.4 Abdominal aortic aneurysm, without rupture; G47.33 Obstructive sleep apnea (adult) (pediatric); N18.3 Chronic kidney disease, stage 3 (moderate); J44.9 Chronic obstructive pulmonary disease, unspecified; F32.9 Major depressive disorder, single episode, unspecified; M79.7 Fibromyalgia; E78.5 Hyperlipidemia, unspecified; G47.00 Insomnia, unspecified; K58.9 Irritable bowel syndrome, unspecified; K21.9 Gastro-esophageal reflux disease without esophagitis; G89.29 Other chronic pain; M54.2 Cervicalgia; E55.9 Vitamin D deficiency, unspecified; J32.9 Chronic sinusitis, unspecified; E78.00 Pure hypercholesterolemia, unspecified; I12.9 Hypertensive chronic kidney disease with stage 1 through stage 4 chronic kidney disease, or unspecified chronic kidney disease; Z96.612 Presence of left artificial shoulder joint; F32.89 Other specified depressive episodes; Z96.611 Presence of right artificial shoulder joint; Z90.710 Acquired absence of both cervix and uterus; Z88.5 Allergy status to narcotic agent; Z88.6 Allergy status to analgesic agent; Z79.899 Other long term (current) drug therapy; Z79.82 Long term (current) use of aspirin; Z90.49 Acquired absence of other specified parts of digestive tract; Z90.89 Acquired absence of other organs; Z98.890 Other specified postprocedural states; Z87.891 Personal history of nicotine dependence; Z11.59 Encounter for screening for other viral diseases
CPT/HCPCS: 01402; 36415; 64450; 73560-26-RT; 73560-RT; 80053; 85027; 87641; 97110-GP; 97116-GP; 97161-GP; 97165-GO; 97535-GO; 99222; 99232; A9270-GY; C1713; C1776; J0171; J0690; J0697; J1170; J1885; J2001; J2175; J2250; J2270; J2370; J2405; J2550; J2704; J2795; J3010; J3370; J3490; U0002

== ENCOUNTER 2021-05-22 09:49 | Emergency (ER) | payer MEDICARE, OTHER ==
[2021-05-22 10:12] VITALS: BP 135/78; PULSE 17
[2021-05-22] MEDS ORDERED: Sodium Chloride 0.9% 10 ML Syringe FLUSH PRN (10:43)
[2021-05-22] MEDS ORDERED: Albuterol/Ipratropium 3.0-0.5 MG/3 ML Neb Soln NEB ONE ×2 (10:44→12:42)
--- NOTE | 2021-05-22 11:18 | CR ---
Chest: Portable view of the chest was obtained. Comparison: Prior chest x-ray of 04/29/20. Heart size appears within normal limits for portable technique. Tortuous thoracic aorta is seen. Lungs are clear with no acute parenchymal change. Bilateral shoulder prostheses are noted. Prior cervical spine surgery is seen. Slight scoliosis and degenerative change are seen within the spine. Surgical clips are seen within the upper right abdomen from prior cholecystectomy. Impression: 1. Findings as noted above which are stable. 2. Nothing acute is appreciated on portable chest x-ray. Diagnostic code #2
--- NOTE | 2021-05-22 12:09 | EDM.PDOC ---
ED HPI GENERAL MEDICAL PROBLEM - General Chief Complaint: Respiratory Problem Stated Complaint: COUGH BROUGHT DOWN FROM CLINIC Time Seen by Provider: 05/22/21 10:35 Source of Information: Reports: Patient History Limitations: Reports: No Limitations, Other (ED vital signs reveal a temp of 97.2, pulse of 70, respiratory rate 23, blood pressure 135/78, pulse ox 95% on room air.) - History of Present Illness INITIAL COMMENTS - FREE TEXT/NARRATIVE: 76-year-old female presents the emergency department today with complaints of shortness of breath and cough. Patient was seen at the clinic by her primary care provider, Allyn Garcia NP for shortness of breath and intractable coughing. The patient states she developed cough and congestion 5 days ago. She states this was manageable at home however it worsened 4 days ago. She denies any fever, chills, nausea, vomiting. She states she has chronic diarrhea for which she has some sort of an implanted electronic device to control her diarrhea. She denies having any body aches or sore throat. Primary complaint is intractable coughing. She does have a significant history of COPD. She quit smoking 20 years ago however prior to that she does have a [id number] history. Currently takes Trelegy for management of her COPD. She states she does have a rescue inhaler however she does not recall the name of this. She states she has been using this at home and it has not seemed to help. Has been sucking on lozenges to control her cough. Patient has had both of her Covid vaccinations however a Covid swab was collected at the clinic prior to her checking in at the ER. - Related Data Allergies Allergy/AdvReac Type Severity Reaction Status Date / Time oxycodone AdvReac Hallucinati Verified 05/22/21 10:08 ons Home Meds: Home Meds Cyanocobalamin (Vitamin B12) [Vitamin B12] 1,000 mcg PO DAILY 08/04/19 [History] Metoprolol Succinate 100 mg PO DAILY 08/04/19 [History] Multivitamin [Daily Multiple Vitamin] 1 tab PO DAILY 08/04/19 [History] Ubidecarenone [Co Q-10] 800 mg PO DAILY 08/04/19 [History] Zolpidem Tartrate [Zolpidem Tartrate ER] 12.5 mg PO BEDTIME PRN 08/04/19 [History] atorvaSTATin [Lipitor] 20 mg PO BEDTIME 08/04/19 [History] Cholecalciferol (Vitamin D3) [Vitamin D3] 5,000 unit PO DAILY 05/10/20 [History] Escitalopram [Lexapro] 10 mg PO DAILY 05/10/20 [History] Fluticasone/Umeclidin/Vilanter [Trelegy Ellipta 100-62.5-25] 1 puff INH DAILY 05/10/20 [History] Losartan Potassium 100 mg PO DAILY 05/10/20 [History] Albuterol Sulfate [Albuterol Sulfate HFA] 8.5 gm INH Q2H PRN #1 ea 05/22/21 [Rx] Benzonatate [Tessalon Perle] 100 mg PO TID PRN #15 capsule 05/22/21 [Rx] Doxycycline [Vibra-Tabs] 100 mg PO Q12HR #14 tab 05/22/21 [Rx] Nepafenac [Ilevro] 1 drop EYEBOTH QAM 05/22/21 [History] amLODIPine [Norvasc] 5 mg PO DAILY 05/22/21 [History] predniSONE [Prednisone] 40 mg PO DAILY #14 tablet 05/22/21 [Rx] Past Medical History HEENT History: Reports: Allergic Rhinitis, Otitis Media, Sinusitis, Other (See Below) Other HEENT History: wears eyeglasses Cardiovascular History: Reports: Aneurysm, High Cholesterol, Hypertension Other Cardiovascular History: ascending aortic aneurysm stable measured at 4 .1cm. Respiratory History: Reports: COPD, Sleep Apnea, SOB Other Respiratory History: no CPAP Gastrointestinal History: Reports: Irritable Bowel Syndrome Other Gastrointestinal History: prolapsing bowels--surgery Genitourinary History: Other Genitourinary History: CKD3, ANDI SKULL GRINDER History: Reports: , Other (See Below) Other SKULL GRINDER History: Hot flashes, vaginal prolapse Musculoskeletal History: Reports: Fibromyalgia, Neck Pain, Chronic Neurological History: Reports: None Psychiatric History: Reports: Depression, Other (See Below) Other Psychiatric History: Insomnia Endocrine/Metabolic History: Reports: Vitamin D Deficiency Hematologic History: Reports: None Immunologic History: Reports: None Oncologic (Cancer) History: Reports: Other (See Below) Other Oncologic History: cancer removed via hysterectomy Dermatologic History: Reports: Other (See Below) Other Dermatologic History: Lipoma - Infectious Disease History Infectious Disease History: Reports: Chicken Pox, Measles - Past Surgical History HEENT Surgical History: Reports: Tonsillectomy Cardiovascular Surgical History: Reports: None GI Surgical History: Reports: Appendectomy, Cholecystectomy, Colonoscopy, Other (See Below) Other GI Surgeries/Procedures: prolapsed colon Female Surgical History: Reports: Section, Hysterectomy Neurological Surgical History: Reports: C-Spine Musculoskeletal Surgical History: Reports: Ganglion Cyst, Shoulder Replacement, Shoulder Surgery, Other (See Below) Other Musculoskeletal Surgeries/Procedures:: Hip surgery - took lump of right side many years ago. Left shoulder replacement 3 yrs ago. Right shoulder replacement - 08/07/19. sx on neck Oncologic Surgical History: Reports: None Dermatological Surgical History: Reports: None - Past Imaging History Past Imaging History: Reports: Cardiac Echo, PFT Social & Family History - Family History Family Medical History: No Pertinent Family History Neurological: Reports: CVA - Tobacco Use Tobacco Use Status *Q: Former Tobacco User Years of Tobacco use: 20 Packs/Tins Daily: 1 Used Tobacco, but Quit: Yes Month/Year Tobacco Last Used: 1999 - Caffeine Use Caffeine Use: Reports: Coffee - Recreational Drug Use Recreational Drug Use: No ED ROS GENERAL - Review of Systems Review Of Systems: Comprehensive ROS is negative, except as noted in HPI. ED EXAM, GENERAL - Physical Exam Exam: See Below Exam Limited By: No Limitations General Appearance: Alert, WD/WN, No Apparent Distress Ears: Normal External Exam, Hearing Grossly Normal Nose: Normal Inspection Throat/Mouth: Normal Inspection, Normal Lips, Normal Voice, No Airway Compromise Head: Atraumatic, Normocephalic Neck: Normal Inspection, Supple Respiratory/Chest: No Respiratory Distress, No Accessory Muscle Use, Chest Non- Tender, Respiratory Distress, Crackles (Bilaterally), Rhonchi (Bilaterally), Wheezing (Fine expiratory wheeze noted bilaterally). No: Lungs Clear (Worse lung sounds throughout), Normal Breath Sounds Cardiovascular: Normal Peripheral Pulses, Regular Rate, Rhythm, No Edema, No Murmur Peripheral Pulses: 2+: Radial (L), Radial (R) GI/Abdominal: Normal Bowel Sounds, Soft, Non-Tender, No Distention (Female) Exam: Deferred Rectal (Female) Exam: Deferred Back Exam: Normal Inspection Extremities: Normal Inspection Neurological: Alert, Oriented, Normal Cognition Psychiatric: Normal Affect, Normal Mood Skin Exam: Warm, Dry, Intact, Normal Color, No Rash Lymphatic: No Adenopathy Course - Vital Signs Text/Narrative:: As stated above, patient with a 5-day history of increased cough and congestion. States that the cough is nonproductive. History of COPD. Patient does not appear to be in any form of respiratory distress. She is afebrile and her O2 saturations are 95% on room air. Lung sounds are coarse throughout with rales, rhonchi and fine expiratory wheeze. She does have a coarse congestive cough. I have ordered a portable chest x-ray. Patient will have lab studies to include a CBC, CMP, magnesium, C-reactive protein and a proBNP. I have ordered for the patient to receive a DuoNeb x1. Last Recorded V/S: Last Vital Signs Temp 97.2 F 05/22/21 10:08 Pulse 17 L 05/22/21 10:08 Resp 23 H 05/22/21 10:08 BP 135/78 05/22/21 10:08 Pulse Ox 98 05/22/21 12:43 - Orders/Labs/Meds Orders: Active Orders 24 hr Category Date Time Status RT Aerosol Therapy [RC] ASDIRECTED Care 05/22/21 10:45 Active RT Aerosol Therapy [RC] ASDIRECTED Care 05/22/21 12:43 Active Sodium Chloride 0.9% [Saline Flush] Med 05/22/21 10:43 Active 10 ml FLUSH ASDIRECTED PRN Saline Lock Insert [OM.PC] Stat Oth 05/22/21 10:43 Ordered Medication Orders Sodium Chloride (Sodium Chloride 0.9% 10 Ml Syringe) 10 ml FLUSH ASDIRECTED PRN PRN Reason: Keep Vein Open Last Admin: 05/22/21 12:33 Dose: 10 ml Documented by: CHRIS Labs: Laboratory Tests 05/22/21 05/22/21 05/22/21 Range/Units 10:43 10:43 11:28 WBC 7.78 (3.98-10.04) K/mm3 RBC 4.15 (3.98-5.22) M/mm3 Hgb 13.4 (11.2-15.7) gm/dl Hct 41.1 (34.1-44.9) % MCV 99.0 H (79.4-94.8) fl MCH 32.3 H (25.6-32.2) pg MCHC 32.6 (32.2-35.5) g/dl RDW Std Deviation 47.3 H (36.4-46.3) fL Plt Count 223 (182-369) K/mm3 MPV 9.9 (9.4-12.3) fl Neut % (Auto) 61.2 (34.0-71.1) % Lymph % (Auto) 27.0 (19.3-51.7) % [place] % (Auto) 9.5 (4.7-12.5) % Eos % (Auto) 1.9 (0.7-5.8) Baso % (Auto) 0.1 (0.1-1.2) % Neut # (Auto) 4.76 (1.56-6.13) K/mm3 Lymph # (Auto) 2.10 (1.18-3.74) K/mm3 [place] # (Auto) 0.74 H (0.24-0.36) K/mm3 Eos # (Auto) 0.15 (0.04-0.36) K/mm3 Baso # (Auto) 0.01 (0.01-0.08) K/mm3 Sodium 142 (136-145) mEq/L Potassium 4.4 (3.5-5.1) mEq/L Chloride 105 (98-107) mEq/L Carbon Dioxide 27 (21-32) mEq/L Anion Gap 14.4 (5-15) BUN 13 (7-18) mg/dL Creatinine 1.2 H (0.55-1.02) mg/dL Est Cr Clr Drug Dosing 30.56 mL/min Estimated GFR (MDRD) 43 (>60) mL/min BUN/Creatinine Ratio 10.8 L (14-18) Glucose 83 (70-99) mg/dL Calcium 9.2 (8.5-10.1) mg/dL Magnesium 1.9 (1.8-2.4) mg/dL Total Bilirubin 0.5 (0.2-1.0) mg/dL AST 34 (15-37) U/L ALT 36 (14-59) U/L Alkaline Phosphatase 93 (46-116) U/L C-Reactive Protein < 0.2 (<1.0) mg/dL NT-Pro-B Natriuret Pep 301 (0-450) pg/mL Total Protein 6.8 (6.4-8.2) g/dl Albumin 3.3 L (3.4-5.0) g/dl Globulin 3.5 gm/dL Albumin/Globulin Ratio 0.9 L (1-2) Meds: Medications Generic Name Dose Route Start Last Admin Trade Name Freq PRN Reason Stop Dose Admin Sodium Chloride 10 ml 05/22/21 10:43 05/22/21 12:33 Sodium Chloride 0.9% 10 Ml Syringe FLUSH 10 ml ASDIRECTED PRN Administration Keep Vein Open Discontinued Medications Generic Name Dose Route Start Last Admin Trade Name Freq PRN Reason Stop Dose Admin Albuterol/Ipratropium 3 ml 05/22/21 10:44 05/22/21 11:06 Albuterol/Ipratropium 3.0-0.5 Mg/3 Ml Neb Soln NEB 05/22/21 10:45 3 ml ONETIME ONE Administration Albuterol/Ipratropium 3 ml 05/22/21 12:42 05/22/21 13:24 Albuterol/Ipratropium 3.0-0.5 Mg/3 Ml Neb Soln NEB 05/22/21 12:43 3 ml ONETIME ONE Administration Benzonatate 100 mg 05/22/21 12:42 05/22/21 13:22 Benzonatate 100 Mg Cap PO 05/22/21 12:43 100 mg ONETIME ONE Administration Methylprednisolone Sodium Succinate 125 mg 05/22/21 12:13 05/22/21 12:30 Methylprednisolone Sodium Succinate 125 Mg/2 Ml Sdv IVPUSH 05/22/21 12:14 125 mg ONETIME ONE Administration - Re-Assessments/Exams Free Text/Narrative Re-Assessment/Exam: 05/22/21 12:11 Radiologist impression portable view of the chest: Heart size appears within normal limits for portable technique. Tortuous thoracic aorta is seen. Lungs are clear with no acute parenchymal change. Bilateral shoulder prosthesis are noted. Prior cervical spine surgery is seen. Slight scoliosis and degenerative change are seen within the spine. Surgical clips are seen within the upper right abdomen from prior cholecystectomy. 05/22/21 12:44 Hematology reveals a WBC of 7.78, hemoglobin 13.4, hematocrit 41.1, platelet count 223 142, potassium 4.4, anion gap 14.4, BUN 13, creatinine 1.2, glucose 83, magnesium 1.9, C-reactive protein less than 0.2, proBNP 301 I have ordered for the patient to receive Solumedrol 125mg IV to treat COPD exacerbation. I spoke with the patient and she states that she doesn't really feel like the nebulizer treatment helped all that much. However, her O2 sats have increased. I am going to repeat the DuoNeb x1 and I will give her some Tessalon Perles to see if this decreases the cough. 05/22/21 14:01 And has noted a decrease in her cough. She will be discharged home with a prescription for Tessalon Perles 1-2 tabs 3 times daily as needed, prednisone 40 mg daily x7 days, albuterol inhaler 2 puffs every 2 hours as needed for shortness of breath, and doxycycline 100 mg twice daily for 7 days. Departure - Departure Time of Disposition: 14:02 Disposition: Home, Self-Care 01 Condition: Good Clinical Impression: COPD with exacerbation - Discharge Information Prescriptions: Albuterol Sulfate [Albuterol Sulfate HFA] 8.5 gm INH Q2H PRN #1 ea PRN Reason: Shortness Of Breath predniSONE [Prednisone] 40 mg PO DAILY #14 tablet Benzonatate [Tessalon Perle] 100 mg PO TID PRN #15 capsule PRN Reason: Cough Doxycycline [Vibra-Tabs] 100 mg PO Q12HR #14 tab Instructions: Chronic Obstructive Pulmonary Disease Exacerbation, [id number] Referrals: Lalita Garcia, REHABILITATION LIAISON [Primary Care Provider] - Forms: ED Department Discharge Additional Instructions: You were seen in the emergency department today with a COPD exacerbation. Labs were completed which were essentially unremarkable. Chest x-ray did not show any acute disease, you do not have pneumonia. While in the emergency department you received nebulizer treatments, steroids, and cough suppressant. I have sent a prescription for prednisone 40 mg daily, this is to be taken for 7 days. Keep in mind that this can make you hyperactive so it is best to be taken first thing in the morning with food. You can take an albuterol inhaler 2 puffs every 2 hours as needed for shortness of breath, keep in mind that this can also make you wired if you are consistently using it very 2 hours. I have sent prescription for Tessalon Perles. You may take 1-2 tabs 3 times daily as needed for cough. And I have sent a prescription for doxycycline 100 mg to be taken twice daily for 7 days. This is an antibiotic medication. While you are on this antibiotic be sure to stay out of the sun because some people do become sensitive to the sun while taking this medication. I would like for you to follow-up with your primary care provider once you have completed your course of steroids and antibiotics for reevaluation of your COPD. Should your condition worsen or change, do not hesitate returning to the emergency department. Sepsis Event Note (ED) - Evaluation Sepsis Screening Result: No Definite Risk - Focused Exam Vital Signs: Vital Signs Temp Pulse Resp BP Pulse Ox Pulse Ox 05/22/21 12:43 98 05/22/21 10:45 97 05/22/21 10:08 97.2 F 17 L 23 H 135/78 95 - My Orders Last 24 Hours: My Active Orders 05/22/21 10:43 Sodium Chloride 0.9% [Saline Flush] 10 ml FLUSH ASDIRECTED PRN Saline Lock Insert [OM.PC] Stat 05/22/21 10:45 RT Aerosol Therapy [RC] ASDIRECTED 05/22/21 12:43 RT Aerosol Therapy [RC] ASDIRECTED - Assessment/Plan Last 24 Hours: My Active Orders 05/22/21 10:43 Sodium Chloride 0.9% [Saline Flush] 10 ml FLUSH ASDIRECTED PRN Saline Lock Insert [OM.PC] Stat 05/22/21 10:45 RT Aerosol Therapy [RC] ASDIRECTED 05/22/21 12:43 RT Aerosol Therapy [RC] ASDIRECTED
[2021-05-22] MEDS ORDERED: methylPREDNISolone Sodium Succinate 125 MG/2 ML SDV IVPUSH ONE (12:13)
[2021-05-22] MEDS ORDERED: Benzonatate 100 MG Cap PO ONE (12:42)
== END 2021-05-22 14:25 | disposition home or self-care (01) ==
LOC: JD.ED 09:49
DX: J44.1 Chronic obstructive pulmonary disease with (acute) exacerbation (principal); E78.00 Pure hypercholesterolemia, unspecified; I12.9 Hypertensive chronic kidney disease with stage 1 through stage 4 chronic kidney disease, or unspecified chronic kidney disease; N18.30 Chronic kidney disease, stage 3 unspecified; Z87.891 Personal history of nicotine dependence; Z88.5 Allergy status to narcotic agent; Z79.899 Other long term (current) drug therapy; Z20.822 Contact with and (suspected) exposure to COVID-19; R05 Cough; R06.02 Shortness of breath
CPT/HCPCS: 36415; 71045; 80053; 83735; 83880; 85025; 86140; 94640; 96374; 99213; 99285; A9270; J2930; U0002; 99284; J7620-GY

== ENCOUNTER 2022-11-17 17:55 | Emergency (ER) | payer MEDICARE, OTHER | END 2022-11-17 18:28 | disposition left against medical advice (07) | LOC: JD.ED 17:55 | DX: Z53.21 Procedure and treatment not carried out due to patient leaving prior to being seen by health care provider (principal) ==

== ENCOUNTER 2022-11-29 09:20 | Inpatient (IN) | payer MEDICARE, OTHER ==
[2022-11-29] MEDS ORDERED: Sodium Chloride 0.9% 10 ML Syringe FLUSH PRN (09:44)
[2022-11-29] MEDS ORDERED: Albuterol/Ipratropium 3.0-0.5 MG/3 ML Neb Soln NEB ONE ×2 (09:45→11:11)
[2022-11-29] MEDS ORDERED: Codeine/Promethazine 10-6.25 MG/5 ML Syrup 5 ML UD Cup PO ONE (09:46)
[2022-11-29 10:31] LABS: ESTIMATED GFR 46 mL/min (>60)
[2022-11-29 10:37] LABS: CORONAVIRUS COVID-19 NAA NEGATIVE (NEGATIVE)
[2022-11-29] MEDS ORDERED: Sodium Chloride 0.9% 1,000 ML IV ONE (11:04)
[2022-11-29] MEDS ORDERED: methylPREDNISolone Sodium Succinate 125 MG/2 ML SDV IVPUSH ONE (11:12)
[2022-11-29] MEDS ORDERED: Docusate Sodium 100 MG Cap PO PRN (13:34)
[2022-11-29] MEDS ORDERED: Ondansetron 4 MG Tab.DIS PO PRN (13:34)
[2022-11-29] MEDS: Azithromycin 500 MG in Sodium Chloride 0.9% 250 ML IV SCH (15:52)
[2022-11-29] MEDS: Heparin Sodium 5,000 Units/ML Vial SUBCUT SCH ×2 (15:56→23:28)
[2022-11-29] MEDS ORDERED: Acetaminophen 325 MG Tab PO PRN ×2 (21:38→23:32)
[2022-11-29] MEDS: traMADol 50 MG Tab PO PRN (21:51)
[2022-11-29] MEDS: atorvaSTATin 20 MG Tab PO SCH (21:52)
[2022-11-29] MEDS: Temazepam 15 MG Cap PO PRN (21:52)
[2022-11-29] MEDS: Albuterol/Ipratropium 3.0-0.5 MG/3 ML Neb Soln NEB PRN (22:28)
[2022-11-30] MEDS: Benzonatate 100 MG Cap PO PRN (02:27)
[2022-11-30] MEDS: Albuterol/Ipratropium 3.0-0.5 MG/3 ML Neb Soln NEB PRN ×3 (02:35→20:14)
[2022-11-30] MEDS: traMADol 50 MG Tab PO PRN (04:39)
[2022-11-30] MEDS: Heparin Sodium 5,000 Units/ML Vial SUBCUT SCH ×3 (06:50→23:00)
[2022-11-30] MEDS: VILANTER INH SCH ×3 (08:31→20:14)
[2022-11-30] MEDS: FLUTICASONE INH SCH ×3 (08:31→20:14)
[2022-11-30] MEDS: UMECLIDIN INH SCH ×3 (08:31→20:14)
[2022-11-30] MEDS: Cholecalciferol (Vitamin D3) 5,000 UNIT Cap PO SCH (09:27)
[2022-11-30] MEDS: amLODIPine 5 MG Tab PO SCH (09:27)
[2022-11-30] MEDS: predniSONE 20 MG Tab PO SCH (09:30)
[2022-11-30] MEDS: Cyanocobalamin (Vitamin B12) 1,000 MCG Tab PO SCH (09:30)
[2022-11-30] MEDS: Losartan 100 MG Tab PO SCH (09:30)
[2022-11-30] MEDS: Citalopram 10 MG Tab PO SCH (09:30)
[2022-11-30] MEDS: NEPAFENAC EYEBOTH SCH (09:35)
[2022-11-30] MEDS: Metoprolol Succinate 50 MG Tab.ER PO SCH (09:36)
[2022-11-30] MEDS: Ibuprofen 600 MG Tab PO SCH ×2 (10:13→20:42)
[2022-11-30] MEDS ORDERED: Acetaminophen/HYDROcodone 325-5 MG Tab PO ONE (12:37)
[2022-11-30] MEDS: Azithromycin 500 MG in Sodium Chloride 0.9% 250 ML IV SCH (13:25)
[2022-11-30] MEDS: Potassium Chloride 20 MEQ Tab.ER PO SCH (18:32)
[2022-11-30] MEDS: Acetaminophen/HYDROcodone 325-5 MG Tab PO PRN (20:43)
[2022-11-30] MEDS: atorvaSTATin 20 MG Tab PO SCH (20:44)
[2022-11-30] MEDS: Temazepam 15 MG Cap PO PRN (21:47)
[2022-12-01] MEDS: Albuterol/Ipratropium 3.0-0.5 MG/3 ML Neb Soln NEB PRN ×3 (03:33→22:17)
[2022-12-01] MEDS: Heparin Sodium 5,000 Units/ML Vial SUBCUT SCH (08:34)
[2022-12-01] MEDS: NEPAFENAC EYEBOTH SCH (08:37)
[2022-12-01] MEDS: Losartan 100 MG Tab PO SCH (08:38)
[2022-12-01] MEDS: Citalopram 10 MG Tab PO SCH (08:38)
[2022-12-01] MEDS: Potassium Chloride 20 MEQ Tab.ER PO SCH (08:39)
[2022-12-01] MEDS: amLODIPine 5 MG Tab PO SCH (08:39)
[2022-12-01] MEDS: Ibuprofen 600 MG Tab PO SCH ×2 (08:39→20:19)
[2022-12-01] MEDS: Metoprolol Succinate 50 MG Tab.ER PO SCH (08:40)
[2022-12-01] MEDS: Cholecalciferol (Vitamin D3) 5,000 UNIT Cap PO SCH (08:40)
[2022-12-01] MEDS: Cyanocobalamin (Vitamin B12) 1,000 MCG Tab PO SCH (08:40)
[2022-12-01] MEDS: predniSONE 20 MG Tab PO SCH (08:40)
[2022-12-01] MEDS: Azithromycin 500 MG in Sodium Chloride 0.9% 250 ML IV SCH (13:02)
[2022-12-01] MEDS: Benzonatate 100 MG Cap PO PRN (18:29)
[2022-12-01] MEDS: atorvaSTATin 20 MG Tab PO SCH (20:19)
[2022-12-01] MEDS: Acetaminophen/HYDROcodone 325-5 MG Tab PO PRN (20:20)
[2022-12-01] MEDS: Temazepam 15 MG Cap PO PRN (20:20)
[2022-12-01] MEDS: UMECLIDIN INH SCH (20:38)
[2022-12-01] MEDS: VILANTER INH SCH (20:38)
[2022-12-01] MEDS: FLUTICASONE INH SCH (20:38)
[2022-12-02] MEDS: Benzonatate 100 MG Cap PO PRN (02:20)
[2022-12-02] MEDS: traMADol 50 MG Tab PO PRN (05:38)
[2022-12-02] MEDS: Acetaminophen/HYDROcodone 325-5 MG Tab PO PRN (08:26)
[2022-12-02] MEDS: Cholecalciferol (Vitamin D3) 5,000 UNIT Cap PO SCH (08:27)
[2022-12-02] MEDS: Ibuprofen 600 MG Tab PO SCH (08:27)
[2022-12-02] MEDS: Potassium Chloride 20 MEQ Tab.ER PO SCH (08:27)
[2022-12-02] MEDS: amLODIPine 5 MG Tab PO SCH (08:27)
[2022-12-02] MEDS: Citalopram 10 MG Tab PO SCH (08:28)
[2022-12-02] MEDS: Cyanocobalamin (Vitamin B12) 1,000 MCG Tab PO SCH (08:28)
[2022-12-02] MEDS: predniSONE 20 MG Tab PO SCH (08:29)
[2022-12-02] MEDS: Metoprolol Succinate 50 MG Tab.ER PO SCH (08:29)
[2022-12-02] MEDS: Losartan 100 MG Tab PO SCH (08:29)
[2022-12-02] MEDS: NEPAFENAC EYEBOTH SCH (08:30)
[2022-12-02 15:09] VITALS: BP 137/83; PULSE 66
== END 2022-12-02 15:39 | disposition home or self-care (01) | DRG 189 ==
LOC: JD.ED 09:20 → JD.MS 13:18
PROVIDERS: ADMIT Internal Medicine; ATTEND Internal Medicine
DX: J96.21 Acute and chronic respiratory failure with hypoxia (principal); J21.0 Acute bronchiolitis due to respiratory syncytial virus; J44.1 Chronic obstructive pulmonary disease with (acute) exacerbation; E87.6 Hypokalemia; N18.31 Chronic kidney disease, stage 3a; H54.7 Unspecified visual loss; B97.4 Respiratory syncytial virus as the cause of diseases classified elsewhere; K64.4 Residual hemorrhoidal skin tags; R09.02 Hypoxemia; G47.30 Sleep apnea, unspecified; Z20.822 Contact with and (suspected) exposure to COVID-19; Z96.611 Presence of right artificial shoulder joint; I12.9 Hypertensive chronic kidney disease with stage 1 through stage 4 chronic kidney disease, or unspecified chronic kidney disease; W19.XXXA Unspecified fall, initial encounter; E78.00 Pure hypercholesterolemia, unspecified; M79.7 Fibromyalgia; I71.40 Abdominal aortic aneurysm, without rupture, unspecified; G47.00 Insomnia, unspecified; E55.9 Vitamin D deficiency, unspecified; N18.30 Chronic kidney disease, stage 3 unspecified; Z90.710 Acquired absence of both cervix and uterus; Z86.19 Personal history of other infectious and parasitic diseases; Z90.89 Acquired absence of other organs; Z90.49 Acquired absence of other specified parts of digestive tract; Z88.6 Allergy status to analgesic agent; Z88.5 Allergy status to narcotic agent; Z79.52 Long term (current) use of systemic steroids; Z79.899 Other long term (current) drug therapy; Z87.891 Personal history of nicotine dependence
CPT/HCPCS: 0241U; 36415; 71045; 71045-26; 80053; 83605; 83735; 85025; 86140; 94640; 94667; 94668; 94760; 94761; 96361; 96374; 99222; 99285; 99285-25; A9270-GY; J0456; J1644; J2930; J3490; J7030; J7050; J7512; J7620-GY

== ENCOUNTER 2023-03-05 17:07 | Emergency (ER) | payer MEDICARE, OTHER ==
[2023-03-05] MEDS ORDERED: Aspirin 81 MG Tab.Chew PO ONE (17:21)
[2023-03-05] MEDS ORDERED: Sodium Chloride 0.9% 10 ML Syringe FLUSH PRN (17:21)
[2023-03-05] MEDS ORDERED: Morphine 2 MG/ML SYRINGE IVPUSH ONE (17:21)
[2023-03-05] MEDS ORDERED: Famotidine 10 MG Tab PO STA (20:12)
[2023-03-05] MEDS ORDERED: Alum Hydrox/Mag Hydrox/Simeth 30 ML, Lidocaine 2% 15 ML PO ONE ×2 (20:12)
[2023-03-05 21:23] VITALS: BP 141/70; PULSE 62
== END 2023-03-05 21:09 | disposition home health service (06) ==
LOC: JD.ED 17:07
DX: R10.13 Epigastric pain (principal); J44.9 Chronic obstructive pulmonary disease, unspecified; E78.00 Pure hypercholesterolemia, unspecified; I12.9 Hypertensive chronic kidney disease with stage 1 through stage 4 chronic kidney disease, or unspecified chronic kidney disease; N18.30 Chronic kidney disease, stage 3 unspecified; Z87.891 Personal history of nicotine dependence; Z88.5 Allergy status to narcotic agent; Z88.8 Allergy status to other drugs, medicaments and biological substances; Z79.899 Other long term (current) drug therapy
CPT/HCPCS: 36415; 71045; 71275; 80053; 81001; 84484; 85025; 85379; 87086; 93005; 96374; 99285; A9270; J2270; J3490; 93010; 99284

== ENCOUNTER 2023-09-06 09:26 | Inpatient (IN) | payer MEDICARE, OTHER ==
[2023-09-06] MEDS ORDERED: Naloxone 0.4 MG/ML SDV IVPUSH ONE (10:15)
[2023-09-06 10:48] LABS: BASOPHILS PERCENT AUTO 0.4 % (0.0-1.0); EOSINOPHILS ABSOLUTE AUTO 0.1 K/mm3 (0.0-0.4); EOSINOPHILS PERCENT AUTO 1.4 % (0.0-6.0); HEMATOCRIT 31.5 % (37.0-47.0); HEMOGLOBIN 10.6 gm/dl (12.0-16.0); IMMATURE GRAN ABSOLUTE AUTO 0.03 K/mm3 (0.00-0.05); IMMATURE GRAN PERCENT AUTO 0.4 % (0.0-0.4); LYMPHOCYTES ABSOLUTE AUTO 1.3 K/mm3 (1.0-4.8); LYMPHOCYTES PERCENT AUTO 16.3 % (24.0-44.0); MEAN CORPUSCULAR HEMOGLOBIN 35.6 pg (28.0-32.0); MEAN CORPUSCULAR HGB CONC 33.7 g/dl (32.0-36.0); MEAN CORPUSCULAR VOLUME 105.7 fl (83.0-99.0); MEAN PLATELET VOLUME 10.4 fl (9.4-12.3); MONOCYTES ABSOLUTE AUTO 0.9 K/mm3 (0.0-0.8); MONOCYTES PERCENT AUTO 11.1 % (0.0-8.0); NEUTROPHILS ABSOLUTE AUTO 5.6 K/mm3 (1.8-7.7); NEUTROPHILS PERCENT AUTO 70.4 % (41.0-71.0); PLATELET COUNT,PLT 174 K/mm3 (150-400); RED BLOOD CELL COUNT 2.98 M/mm3 (4.10-5.30)
[2023-09-06 10:49] LABS: APPEARANCE,URINE CLOUDY (Clear); BILIRUBIN,URINE NEGATIVE (Negative); COLOR,URINE YELLOW (Yellow); GLUCOSE,URINE NEGATIVE (Negative); KETONES,URINE TRACE (Negative); LEUKOCYTE ESTERASE,URINE 3+ (Negative); NITRITE,URINE NEGATIVE (Negative); OCCULT BLOOD,URINE NEGATIVE (Negative); PH,URINE 6.5 (5.0-8.0); PROTEIN,URINE NEGATIVE (Negative); UROBILINOGEN,URINE 0.2 (0.2-1.0)
[2023-09-06 11:17] LABS: A/G RATIO 0.7 (1-2); ALBUMIN 2.5 g/dl (3.4-5.0); ANION GAP 14.1 (5-15); BILIRUBIN TOTAL 0.5 mg/dL (0.2-1.0); BUN/CREATININE RATIO 22.9 (14-18); CALCIUM 9.7 mg/dL (8.5-10.1); CREATININE 0.7 mg/dL (0.55-1.02); EST CRCL DRUG DOSING (CG) 53.7 mL/min; PROTEIN TOTAL,TP 6.1 g/dl (6.4-8.2)
[2023-09-06 11:19] LABS: BACTERIA,URINE MODERATE /hpf (FEW); MUCUS,URINE FEW /hpf (FEW); WBC,URINE >100 /hpf (0-5); YEAST,URINE MODERATE (NOT SEEN)
[2023-09-06 11:20] LABS: POTASSIUM,K 4.1 mEq/L (3.5-5.1)
[2023-09-06] MEDS ORDERED: Sulfamethoxazole/Trimethoprim 800-160 MG Tab PO ONE (11:46)
[2023-09-06] MEDS ORDERED: Ondansetron 4 MG/2 ML SDV IV PRN (16:51)
[2023-09-06] MEDS ORDERED: Polyethylene Glycol 3350 Powder 17 GM Packet PO PRN (16:51)
[2023-09-06] MEDS ORDERED: Docusate Sodium 100 MG Cap PO PRN (16:51)
[2023-09-06] MEDS ORDERED: Ondansetron 4 MG Tab.DIS PO PRN (16:51)
[2023-09-06] MEDS ORDERED: Non-Formulary Medication 1 Each (Albuterol Sulfate [Proair Digihaler] 90 MCG Aer.Pw.Bas) INH SCH (17:00)
[2023-09-06] MEDS ORDERED: Albuterol 6.7 GM Inhaler INH SCH ×2 (17:07→18:00)
[2023-09-06] MEDS ORDERED: Albuterol 6.7 GM Inhaler INH PRN (17:30)
[2023-09-06] MEDS: Heparin Sodium 5,000 Units/ML Vial SUBCUT SCH (18:35)
[2023-09-06] MEDS: cefTRIAXone 2 GM in Sodium Chloride 0.9% 100 ML IV SCH (18:35)
[2023-09-06] MEDS: atorvaSTATin 20 MG Tab PO SCH (20:25)
[2023-09-06] MEDS: Cholestyramine/Sucrose Powder 4 GM Packet PO SCH (20:27)
[2023-09-07] MEDS: Morphine 2 MG/ML SYRINGE IVPUSH PRN ×2 (00:09→10:40)
[2023-09-07] MEDS: Heparin Sodium 5,000 Units/ML Vial SUBCUT SCH ×3 (00:13→16:57)
[2023-09-07 05:53] LABS: BASOPHILS PERCENT AUTO 0.3 % (0.0-1.0); EOSINOPHILS ABSOLUTE AUTO 0.1 K/mm3 (0.0-0.4); EOSINOPHILS PERCENT AUTO 0.9 % (0.0-6.0); HEMATOCRIT 31.3 % (37.0-47.0); HEMOGLOBIN 10.8 gm/dl (12.0-16.0); IMMATURE GRAN ABSOLUTE AUTO 0.02 K/mm3 (0.00-0.05); IMMATURE GRAN PERCENT AUTO 0.3 % (0.0-0.4); LYMPHOCYTES ABSOLUTE AUTO 1.2 K/mm3 (1.0-4.8); LYMPHOCYTES PERCENT AUTO 17.9 % (24.0-44.0); MEAN CORPUSCULAR HEMOGLOBIN 35.5 pg (28.0-32.0); MEAN CORPUSCULAR HGB CONC 34.5 g/dl (32.0-36.0); MEAN PLATELET VOLUME 9.2 fl (9.4-12.3); MONOCYTES ABSOLUTE AUTO 0.9 K/mm3 (0.0-0.8); NEUTROPHILS ABSOLUTE AUTO 4.5 K/mm3 (1.8-7.7); NEUTROPHILS PERCENT AUTO 67.6 % (41.0-71.0); PLATELET COUNT,PLT 237 K/mm3 (150-400); RED BLOOD CELL COUNT 3.04 M/mm3 (4.10-5.30); WHITE BLOOD CELL COUNT,WBC 6.61 K/mm3 (3.9-11.3)
[2023-09-07 06:12] LABS: ANION GAP 11.4 (5-15); BUN/CREATININE RATIO 11.4 (14-18); CALCIUM 9.7 mg/dL (8.5-10.1); CREATININE 0.7 mg/dL (0.55-1.02); EST CRCL DRUG DOSING (CG) 50.7 mL/min; POTASSIUM,K 3.4 mEq/L (3.5-5.1)
[2023-09-07] MEDS ORDERED: NEPAFENAC EYEBOTH SCH ×2 (08:00)
[2023-09-07] MEDS: Furosemide 40 MG Tab PO SCH (08:17)
[2023-09-07] MEDS: amLODIPine 5 MG Tab PO SCH (08:17)
[2023-09-07] MEDS: Metoprolol Succinate 50 MG Tab.ER PO SCH (08:17)
[2023-09-07] MEDS: Cholestyramine/Sucrose Powder 4 GM Packet PO SCH ×2 (08:17→20:43)
[2023-09-07] MEDS: Losartan 100 MG Tab PO SCH (08:17)
[2023-09-07] MEDS ORDERED: Non-Formulary Medication 1 Each (Progesterone, Micronized [Progesterone] 100 MG Capsule) PO SCH (09:00)
[2023-09-07] MEDS ORDERED: Non-Formulary Medication 1 Each (Fluticasone/Umeclidin/Vilanter [Trelegy Ellipta 100-62.5- INH SCH (09:00)
[2023-09-07] MEDS: Trelegy Ellipta **PTOM INH SCH (09:02)
[2023-09-07] MEDS: Acetaminophen 325 MG Tab PO PRN (13:20)
[2023-09-07] MEDS ORDERED: traMADol 50 MG Tab PO PRN (13:53)
[2023-09-07] MEDS: cefTRIAXone 2 GM in Sodium Chloride 0.9% 100 ML IV SCH (16:57)
[2023-09-07] MEDS: atorvaSTATin 20 MG Tab PO SCH (20:43)
[2023-09-07] MEDS ORDERED: guaiFENesin/Dextromethorphan 100-10 MG/5 ML Soln 5 ML Cup PO PRN (21:51)
[2023-09-08] MEDS: Acetaminophen 325 MG Tab PO PRN ×2 (00:17→12:23)
[2023-09-08] MEDS: Heparin Sodium 5,000 Units/ML Vial SUBCUT SCH ×2 (00:17→09:47)
[2023-09-08 05:47] LABS: ANION GAP 14.4 (5-15); BUN/CREATININE RATIO 12.5 (14-18); CALCIUM 9.7 mg/dL (8.5-10.1); CREATININE 0.8 mg/dL (0.55-1.02); EST CRCL DRUG DOSING (CG) 44.36 mL/min; MAGNESIUM 1.5 mg/dL (1.8-2.4); POTASSIUM,K 3.4 mEq/L (3.5-5.1)
[2023-09-08] MEDS: Trelegy Ellipta **PTOM INH SCH (08:52)
[2023-09-08] MEDS ORDERED: Non-Formulary Medication 1 Each (Escitalopram 10 MG Tablet) PO SCH (09:00)
[2023-09-08] MEDS ORDERED: Magnesium Sulfate (4.06 MEQ/ML) 5 GM/10 ML SDV IV ONE (09:14)
[2023-09-08] MEDS ORDERED: Magnesium Sulfate/Water 2 GM in Premix Bag 1 BAG IV ONE (09:30)
[2023-09-08] MEDS: Cholestyramine/Sucrose Powder 4 GM Packet PO SCH (09:41)
[2023-09-08] MEDS: Metoprolol Succinate 50 MG Tab.ER PO SCH (09:47)
[2023-09-08] MEDS: Furosemide 40 MG Tab PO SCH (09:47)
[2023-09-08] MEDS: Losartan 100 MG Tab PO SCH (09:48)
[2023-09-08] MEDS: amLODIPine 5 MG Tab PO SCH (09:48)
[2023-09-08 12:24] VITALS: BP 126/90; PULSE 95
[2023-09-08] MEDS ORDERED: cefTRIAXone 2 GM in Sodium Chloride 0.9% 100 ML IV ONE (13:00)
== END 2023-09-08 14:03 | disposition home or self-care (01) | DRG 698 ==
LOC: JD.ED 09:26 → JD.MS 16:51
PROVIDERS: ADMIT Hospitalist; ATTEND Hospitalist
DX: T83.518A Infection and inflammatory reaction due to other urinary catheter, initial encounter (principal); G92.8 Other toxic encephalopathy; N30.01 Acute cystitis with hematuria; J44.9 Chronic obstructive pulmonary disease, unspecified; Z66 Do not resuscitate; E78.00 Pure hypercholesterolemia, unspecified; I12.9 Hypertensive chronic kidney disease with stage 1 through stage 4 chronic kidney disease, or unspecified chronic kidney disease; N18.30 Chronic kidney disease, stage 3 unspecified; F32.A Depression, unspecified; Z88.8 Allergy status to other drugs, medicaments and biological substances; Z90.710 Acquired absence of both cervix and uterus; Z88.5 Allergy status to narcotic agent; Z90.89 Acquired absence of other organs; Z90.49 Acquired absence of other specified parts of digestive tract; Z98.890 Other specified postprocedural states; Y84.6 Urinary catheterization as the cause of abnormal reaction of the patient, or of later complication, without mention of misadventure at the time of the procedure; T50.995A Adverse effect of other drugs, medicaments and biological substances, initial encounter; Y92.89 Other specified places as the place of occurrence of the external cause
CPT/HCPCS: 36415; 70450; 70450-26; 80048; 80053; 81001; 82947; 83735; 85025; 87086; 94640; 94760; 94761; 96374; 97110-GP; 97161-GP; 99284; 99285-25; A9270-GY; J0696; J1644; J2270; J2310; J3475; J3490

== ENCOUNTER 2025-03-20 13:30 | Emergency (ER) | payer MEDICARE, OTHER ==
[2025-03-20 14:07] LABS: BASOPHILS PERCENT AUTO 0.3 % (0.0-1.0); EOSINOPHILS PERCENT AUTO 0.1 % (0.0-6.0); HEMATOCRIT 43.5 % (37.0-47.0); HEMOGLOBIN 14.5 gm/dl (12.0-16.0); IMMATURE GRAN ABSOLUTE AUTO 0.02 K/mm3 (0.00-0.05); IMMATURE GRAN PERCENT AUTO 0.2 % (0.0-0.4); LYMPHOCYTES PERCENT AUTO 20.3 % (24.0-44.0); MEAN CORPUSCULAR HGB CONC 33.3 g/dl (32.0-36.0); MEAN CORPUSCULAR VOLUME 98.9 fl (83.0-99.0); MEAN PLATELET VOLUME 10.6 fl (9.4-12.3); MONOCYTES ABSOLUTE AUTO 0.7 K/mm3 (0.0-0.8); MONOCYTES PERCENT AUTO 7.5 % (0.0-8.0); NEUTROPHILS PERCENT AUTO 71.6 % (41.0-71.0); PLATELET COUNT,PLT 198 K/mm3 (150-400); WHITE BLOOD CELL COUNT,WBC 9.72 K/mm3 (3.9-11.3)
[2025-03-20 14:31] LABS: A/G RATIO 1.1 (1-2); ALBUMIN 3.7 g/dl (3.4-5.0); ANION GAP 14.7 (5-15); BILIRUBIN TOTAL 0.5 mg/dL (0.2-1.0); BUN/CREATININE RATIO 15.5 (14-18); C-REACTIVE PROTEIN 0.11 mg/dL (<0.30); CALCIUM 9.9 mg/dL (8.5-10.1); CREATININE 1.1 mg/dL (0.55-1.02); EST CRCL DRUG DOSING (CG) 31.19 mL/min; MAGNESIUM 1.7 mg/dL (1.8-2.4); POTASSIUM,K 3.7 mEq/L (3.5-5.1); PROTEIN TOTAL,TP 7.1 g/dl (6.4-8.2); TSH 1.127 uIU/mL (0.358-3.74)
[2025-03-20] MEDS: Magnesium Oxide 400 MG Tab PO ONE (15:41)
[2025-03-20 15:56] LABS: APPEARANCE,URINE CLEAR (Clear); BILIRUBIN,URINE NEGATIVE (Negative); COLOR,URINE YELLOW (Yellow); GLUCOSE,URINE NEGATIVE (Negative); KETONES,URINE NEGATIVE (Negative); LEUKOCYTE ESTERASE,URINE 1+ (Negative); NITRITE,URINE NEGATIVE (Negative); OCCULT BLOOD,URINE NEGATIVE (Negative); PROTEIN,URINE NEGATIVE (Negative); UROBILINOGEN,URINE 0.2 (0.2-1.0)
[2025-03-20 16:03] LABS: BACTERIA,URINE MANY /hpf (FEW); MUCUS,URINE FEW /hpf (FEW); RBC,URINE 0-5 /hpf (0-5); SQUAMOUS EPITHELIAL CELLS,UR 0-5 /hpf (0-5); WBC,URINE 20-30 /hpf (0-5)
[2025-03-20] MEDS: Metoprolol Succinate 25 MG Tab.ER PO ONE (16:18)
[2025-03-20] MEDS: cefTRIAXone 2 GM in Sodium Chloride 0.9% 100 ML IV ONE (16:50)
[2025-03-20] MEDS: cefTRIAXone 2 GM Vial IVPUSH ONE (16:56)
[2025-03-20 17:55] VITALS: BP 156/87; PULSE 87
== END 2025-03-20 17:35 | disposition home or self-care (01) ==
LOC: JD.ED 13:30
DX: R00.0 Tachycardia, unspecified (principal); N30.01 Acute cystitis with hematuria; I10 Essential (primary) hypertension; E78.00 Pure hypercholesterolemia, unspecified; J44.9 Chronic obstructive pulmonary disease, unspecified; Z88.5 Allergy status to narcotic agent; Z88.8 Allergy status to other drugs, medicaments and biological substances; Z79.899 Other long term (current) drug therapy; Z79.51 Long term (current) use of inhaled steroids; Z79.02 Long term (current) use of antithrombotics/antiplatelets; Z90.710 Acquired absence of both cervix and uterus; Z90.49 Acquired absence of other specified parts of digestive tract
CPT/HCPCS: 36415; 71045; 80053; 81001; 83735; 83880; 84443; 84484; 85025; 86140; 87086; 93005; 96374; 99285; A9270; J0696; 93010; 99284